=== PATIENT | male | born 1955 | race Caucasian/White ===

== ENCOUNTER 2024-09-04 12:32 | Emergency (ER) | payer MEDICARE, MEDICAID, SELFPAY ==
[2024-09-04] VITALS (7 sets, daily range): BP systolic 133–205; BP diastolic 48–95; PULSE 68–84; RESP 16–20; TEMP 36.4–37.3; O2SAT 96–99; BMI 27.8
--- NOTE | 2024-09-04 14:04 | XR_ITS ---
Examination: PA lateral chest 2 views TECHNIQUE: Upright PA lateral chest 2 views Exam date and time: September 04, 2024 1424 hours INDICATIONS: Chest pain today. FINDINGS: Significant pneumonia left base Mild to moderate left pleural fluid Moderate vascular congestion IMPRESSION: Significant pneumonia left base
--- NOTE | 2024-09-04 14:14 | PD.EDCHEST ---
ED Chest Pain RME/HPI General Chief Complaint: Chest Pain Stated Complaint: CHEST PAIN Time Seen by Provider: 09/04/24 14:03 Source: patient Arrival date/time: 09/04/24 12:32 69-year-old male patient with a past medical history of hypertension for which he is noncompliant with his medications, presents to the emergency department with a chief complaint of pressure in his central chest area. The pressure is worse with exertion or after eating and is relieved by laying on his left side.. This pressure has been ongoing for approximately 3 weeks. He denies radiation of his pain. He describes the severity of his pain as a 5/10 and is currently 4-5/10. Related Data Home Medications ?Medication ?Instructions ?Recorded ?Confirmed benazepril 40 mg tablet (Lotensin) 25 mg PO BID ##0 12/13/12 docusate sodium 250 mg capsule 250 mg PO QDAY PRN CONSTIPATION #0 06/25/14 (DOK) caps diphenhydramine HCl 25 mg capsule 25 mg PO HS #0 caps 12/25/15 Oxycodone Hcl * (ROXICODONE *) 10 mg PO Q6HR PRN PAIN #0 tabs 12/24/16 Previous Rx's ?Medication ?Instructions ?Recorded naproxen 500 mg tablet (Naprosyn) 500 mg PO BIDWM #20 tabs 05/23/17 acetaminophen 500 mg tablet 1,000 mg (2 x 500 mg) PO QID PRN 06/07/18 (Tylenol Extra Strength) pain #60 tabs Allergies Allergy/AdvReac Type Severity Reaction Status Date / Time No Known Allergies Allergy Verified 10/25/21 13:00 Course Orders Category Date Time Status CT Screening NOW Care 09/04/24 16:33 Active EKG (ED ONLY) *Do not use* NOW Care 09/04/24 14:[address] chest abdomen pelvis wwo Stat Exams 09/04/24 16:32 Ordered EKG (ED Only) Stat Exams 09/04/24 14:04 Ordered XR chest 2V Stat Exams 09/04/24 14:04 Completed B-Type Natriuretic Peptide Stat Lab 09/04/24 14:58 Completed Blood Culture (Lab) Stat Lab 09/04/24 16:50 Received CBC Stat Lab 09/04/24 14:58 Completed Comprehensive Metabolic Panel Stat Lab 09/04/24 14:58 Completed Drug Screen,Urine Stat Lab 09/04/24 14:04 Ordered LDH (Lactate Dehydrogenase) Stat Lab 09/04/24 14:58 Completed Magnesium Stat Lab 09/04/24 14:58 Completed Partial Thromboplastin Time Stat Lab 09/04/24 14:58 Completed Prothrombin Time with INR Stat Lab 09/04/24 14:58 Completed Troponin I Stat Lab 09/04/24 14:58 Completed Urinalysis Stat Lab 09/04/24 14:04 Ordered Azithromycin Inj [Zithromax Inj] 500 mg Med 09/04/24 16:31 Discontinued Sodium Chloride 0.9% 250 ml [Ns] 250 ml IV X1 Labetalol IV [Trandate IV] Med 09/04/24 17:50 Discontinued 10 mg IVP X1 ONE cefTRIAXone/D5w 1gm IV premix [Rocephin/D5w 1gm IV Med 09/04/24 16:30 Discontinued premix] 1 gm in 50 ml IV X1 Vital Signs Vital signs: Vital Signs Temperature 97.6 F 09/04/24 13:36 Pulse Rate 74 09/04/24 13:36 Blood Pressure 190/94 H 09/04/24 13:36 Pulse Oximetry (%) 96 09/04/24 13:36 Oxygen Delivery Method Room Air 09/04/24 13:36 Chest Pain Medications / Prescriptions Medication administrations:: Medication Administration History Discontinued Medications Ceftriaxone Sodium/Dextrose (Rocephin/D5w 1gm Iv Premix) 1 gm in 50 mls @ 100 mls/hr IV X1 ONE Stop: 09/04/24 16:59 Last Infusion: 09/04/24 18:12 Dose: Infused Documented By: Admin: 09/04/24 17:03 Dose: 100 mls/hr Documented By: Azithromycin 500 mg/ Sodium (Chloride) 250 mls @ 250 mls/hr IV X1 ONE Stop: 09/04/24 17:30 Labetalol HCl (Labetalol Inj 5 Mg/Ml Vial 20 Ml) 10 mg IVP X1 ONE Stop: 09/04/24 17:51 Discharge Plan Prescriptions/Referrals Prescriptions/Med Rec: No Action benazepril [Lotensin] 40 MG tablet 25 mg PO BID Qty: 0 docusate sodium [DOK] 250 MG capsule 250 mg PO QDAY PRN (Reason: CONSTIPATION) Qty: 0 diphenhydramine HCl 25 MG capsule 25 mg PO HS Qty: 0 Oxycodone Hcl * (ROXICODONE *) 5 MG tablet 10 mg PO Q6HR PRN (Reason: PAIN) Qty: 0 naproxen [Naprosyn] 500 MG tablet 500 mg PO BIDWM Qty: 20 0RF Rx Instructions: PRN PAIN acetaminophen [Tylenol Extra Strength] 500 mg tablet 1,000 mg PO QID PRN (Reason: pain) Qty: 60 0RF Referrals: Jb Salvador MD [Primary Care Provider] - In 1 week Patient/Caregiver Discharge Instructions Print Language: Kyrgyz
[2024-09-04 15:15] LABS: Basophils % (Auto) 1 % (0-2.5); Eosinophils # (Auto) 0.2 Thou/mm3 (0.0-0.5); Eosinophils % (Auto) 5 % (0-10); Hematocrit 41.8 % (41.0-53.0); Hemoglobin 15.2 g/dL (13.5-16.0); Immature Granulocytes % (Auto) 1 % (0-0); Immature Granulocytes Auto 0.03 Thou/mm3 (0.00-0.00); Lymphocytes # (Auto) 0.7 Thou/mm3 (1.0-4.8); Lymphocytes % (Auto) 16 % (10-50); Mean Corpuscular HGB Conc 36.4 g/dl (31.0-37.0); Mean Corpuscular Hemoglobin 33.4 pg (25.0-35.0); Mean Corpuscular Volume 92 fL (80-100); Monocytes # (Auto) 0.3 Thou/mm3 (0.0-0.8); Monocytes % (Auto) 8 % (0-12); Neutrophils # (Auto) 2.9 Thou/mm3 (1.8-7.7); Neutrophils % (Auto) 70 % (37-80); Nucleated Red Blood Cell % 0 /100 WBC (0); RDW Standard Deviation 51.9 fL (35.1-43.9); Red Blood Count 4.55 Miln/mm3 (4.50-5.90); White Blood Count 4.2 Thou/mm3 (3.8-10.6)
[2024-09-04 15:27] LABS: INR 1.3 (0.9-1.3); Partial Thromboplastin Time 31.2 Seconds (22.0-36.0); Prothrombin Time 13.5 Seconds (9.0-12.2)
[2024-09-04 15:31] LABS: Alanine Aminotransferase 64 U/L (10-49); Albumin, Serum 2.9 gm/dL (3.4-4.8); Albumin/Globulin Ratio 0.7 (1.2-2.2); Alkaline Phosphatase 150 U/L (46-116); Anion Gap 6 (7-16); Aspartate Amino Transferase 90 U/L (0-34); BUN/Creatinine Ratio 15 Ratio (12-20); Bilirubin,Total 2.7 mg/dL (0.3-1.2); Blood Urea Nitrogen 15 mg/dL (9-23); Calcium 8.7 mg/dL (8.3-10.6); Calcium (Corrected) 9.6 mg/dL (8.5-10.1); Carbon Dioxide 28.5 mMol/L (20.0-31.0); Chloride 105 mMol/L (98-107); Glucose 116 mg/dL (74-106); LDH (Lactate Dehydrogenase) 325 U/L (120-246); Magnesium 1.8 mg/dL (1.6-2.6); Osmolality,Calculated 279 (275-295); Potassium 4.7 mMol/L (3.4-5.1); Sodium 139 mMol/L (136-145); Total Protein 6.9 gm/dL (5.7-8.2); Troponin I < 0.020 ng/mL (0.0-0.045); eGFR > 60 See Note
[2024-09-04 15:35] LABS: B-Type Natriuretic Peptide 156 pg/mL (0-100)
[2024-09-04 15:41] LABS: Platelet Count 77 Thou/mm3 (140-440)
[2024-09-04] MEDS: cefTRIAXone/D5w 1gm IV premix 1 GM/50 ML BAG IV (17:03)
[2024-09-04 18:03] LABS: Slide Review Platelets confirmed
--- NOTE | 2024-09-04 18:13 | PC.NURSE ---
PT STATES THAT HE DOES NOT LIKE GETTING IV CONTRAST SO HE DOES NOT WANT THE TEST DONE. DAQUAN PINA INFORMED
--- NOTE | 2024-09-04 18:59 | XR_ITS ---
Examination: CT chest, without intravenous contrast. CT abdomen, without intravenous contrast. CT pelvis, without intravenous contrast. 2-D sagittal and coronal reconstructions. 3-D reconstructions. Date and time of exam:September 04, 2024 at 10:15 PM INDICATION: Chest pain shortness of breath abdominal pain today CTDI vol (mgy) 9.86 DLP (MGycm)822 Technique: Multiple CT images, 3.0 mm slice thickness, obtained chest, abdomen, pelvis, with the high-resolution 64 slice scanner.. Sagittal and coronal 2-D reconstructions are obtained. 3-D reconstructions Low dose protocols were performed. One or more of the following dose reduction techniques were used; automated exposure control, adjustment of the mA and/or KV according to patient size, use of iterative reconstruction technique. Findings: No thoracic aortic aneurysm dilatation Pulmonary artery segments are not enlarged No paratracheal or tracheobronchial or bronchopulmonary adenopathy Mild enlargement left ventricle Significant pneumonia left base Moderate vascular congestion Small left pleural effusion Retrocardiac gastric hernia Cirrhosis liver nodular in contour without definite focal defects Massive splenomegaly Moderate ascites Esophageal varices Perigastric varices Portosystemic collateral vessels medial to the spleen No pancreatic mass, no hydronephrosis Partial visualization of normal-appearing appendix No bowel obstruction 27 mm umbilical hernia which contains a small bowel loop but no incarcerated bowel or bowel obstruction Colonic diverticulosis Normal seminal vesicles No significant prostatomegaly Severe osteopenia Chronic osteoporotic compression L3 with retropulsion of this vertebral body 4 mm IMPRESSION: Significant left base pneumonia. Moderate vascular congestion Cirrhosis Massive splenomegaly Esophageal perigastric varices Moderate ascites 27 mm umbilical hernia containing a small bowel loop but no incarcerated bowel or bowel obstruction
--- NOTE | 2024-09-04 19:08 | PC.NURSE ---
PT MOVED TO ROOM 17
[2024-09-04] MEDS: AZITHROMYCIN INJ 500 MG in SODIUM CHLORIDE 0.9% 250 ML 250 ML 250 MG IV (19:23)
[2024-09-04] MEDS: LABETALOL INJ 5 MG/ML VIAL 20 ML 10 MG IVP (19:25)
[2024-09-05 00:10] VITALS: BP 153/86; PULSE 86; RESP 18
[2024-09-05 00:43] VITALS: RESP 18
== END 2024-09-05 00:43 | disposition home or self-care (01) ==
PROVIDERS: Physician Assistant; Emergency Provider Family Medicine; PCP Family Medicine
DX: I10 Essential (primary) hypertension (principal); Z91.148 Patient's other noncompliance with medication regimen for other reason
CPT/HCPCS: 36415; 71046; 71250; 74176; 80053; 80307; 81001; 83615; 83735; 83880; 84484; 85025; 85610; 85730; 87040; 93005; 96365; 96367; 99284; J0456; J0696; J3490; J7050; J1920

== ENCOUNTER 2024-09-19 16:58 | Emergency (ER) | payer MEDICARE, MEDICAID, SELFPAY ==
[2024-09-19 17:03] VITALS: BP 210/103; PULSE 77; RESP 19; TEMP 37; O2SAT 95
[2024-09-19 17:19] VITALS: BP 194/89; PULSE 75; RESP 30; TEMP 36.9; O2SAT 97
--- NOTE | 2024-09-19 17:23 | PD.EDRME ---
Rapid Medical Screening Exam RME Arrival date/time: 09/19/24 16:58 Chief Complaint: Urogenital-Male Time Seen by Provider: 09/19/24 17:23 Vital signs: Vital Signs Temperature 98.6 F 09/19/24 17:03 Pulse Rate 77 09/19/24 17:03 Respiratory Rate 19 09/19/24 17:03 Blood Pressure 210/103 H 09/19/24 17:03 Pulse Oximetry (%) 95 09/19/24 17:03 RME Narrative: 69 y/o male with Hx of methamphetamine use and cirrhosis of the liver presents to ED BIBA for abdominal pain and light-headedness when he stands x 4-5 days, as well as blood at the end of urination x 4 days. No other concerns or complaints expressed at this time. MD Attestation MD Attestation Scribe Attestation: Elaina Harris, am scribing for and in the presence of Dr. Wilkerson. Provider Notation: Although this document has been carefully reviewed, there may still be some phonetic and other typographical errors. These errors are purely grammatical due to imperfections in the software program and should not be construed in any way to compromise the substance of the patient's medical care during this visit. A problem focused assessment was initiated. Further analysis and treatment will be done by oncoming medical provider.
[2024-09-19 17:45] VITALS: PULSE 84; RESP 18; O2SAT 98
[2024-09-19 18:00] VITALS: BP 194/89; PULSE 75; RESP 28; TEMP 37; O2SAT 96
[2024-09-19 18:20] LABS: Basophils % (Auto) 1 % (0-2.5); Eosinophils # (Auto) 0.3 Thou/mm3 (0.0-0.5); Eosinophils % (Auto) 7 % (0-10); Hematocrit 40.5 % (41.0-53.0); Hemoglobin 14.9 g/dL (13.5-16.0); Immature Granulocytes % (Auto) 1 % (0-0); Immature Granulocytes Auto 0.02 Thou/mm3 (0.00-0.00); Lymphocytes # (Auto) 0.7 Thou/mm3 (1.0-4.8); Lymphocytes % (Auto) 17 % (10-50); Mean Corpuscular HGB Conc 36.8 g/dl (31.0-37.0); Mean Corpuscular Hemoglobin 32.7 pg (25.0-35.0); Mean Corpuscular Volume 89 fL (80-100); Monocytes # (Auto) 0.5 Thou/mm3 (0.0-0.8); Monocytes % (Auto) 11 % (0-12); Neutrophils # (Auto) 2.7 Thou/mm3 (1.8-7.7); Neutrophils % (Auto) 64 % (37-80); Nucleated Red Blood Cell % 0 /100 WBC (0); RDW Standard Deviation 48.5 fL (35.1-43.9); Red Blood Count 4.56 Miln/mm3 (4.50-5.90); White Blood Count 4.3 Thou/mm3 (3.8-10.6)
[2024-09-19 18:32] LABS: INR 1.3 (0.9-1.3); Partial Thromboplastin Time 30.8 Seconds (22.0-36.0)
[2024-09-19 18:33] LABS: Platelet Count 55 Thou/mm3 (140-440)
[2024-09-19 18:40] LABS: Alanine Aminotransferase 68 U/L (10-49); Albumin, Serum 2.7 gm/dL (3.4-4.8); Albumin/Globulin Ratio 0.7 (1.2-2.2); Alkaline Phosphatase 149 U/L (46-116); Anion Gap 3 (7-16); Aspartate Amino Transferase 97 U/L (0-34); BUN/Creatinine Ratio 19 Ratio (12-20); Bilirubin,Total 2.3 mg/dL (0.3-1.2); Blood Urea Nitrogen 17 mg/dL (9-23); Calcium 8.6 mg/dL (8.3-10.6); Calcium (Corrected) 9.6 mg/dL (8.5-10.1); Carbon Dioxide 26.6 mMol/L (20.0-31.0); Chloride 109 mMol/L (98-107); Creatinine (Component) 0.9 mg/dL (0.6-1.3); Globulin 3.8 gm/dL (2.3-3.5); Glucose 108 mg/dL (74-106); Lipase 56 U/L (12-53); Osmolality,Calculated 280 (275-295); Potassium 4.2 mMol/L (3.4-5.1); Sodium 139 mMol/L (136-145); Total Protein 6.5 gm/dL (5.7-8.2); eGFR > 60 See Note
[2024-09-19 19:19] LABS: Slide Review Platelets confirmed
[2024-09-19 19:55] VITALS: BP 187/98; PULSE 76; RESP 22; TEMP 36.7; O2SAT 96
--- NOTE | 2024-09-19 20:09 | PD.EDMALE ---
ED Male Genitalurinary RME/HPI General Chief complaint: Urogenital-Male Stated complaint: BLOOD IN URINE Time Seen by Provider: 09/19/24 17:23 Arrival date/time: 09/19/24 16:58 RME / HPI RME / HPI Narrative: 69 y/o male with Hx of methamphetamine use and cirrhosis of the liver, abdominal hernia, presents to ED BIBA for abdominal pain and light-headedness when he stands x 4-5 days, as well as blood at the end of urination x 4 days. Patient also complaining of worsening cough for the last few days. Associated with shortness of breath. No other concerns or complaints expressed at this time. He was seen here 15 days ago and was started on Zithromax. Which the patient completed the medication. Patient denies any fever. Denies any chest pain. Related Data Home Medications ?Medication ?Instructions ?Recorded ?Confirmed benazepril 40 mg tablet (Lotensin) 25 mg PO BID ##0 12/13/12 docusate sodium 250 mg capsule 250 mg PO QDAY PRN CONSTIPATION #0 06/25/14 (DOK) caps diphenhydramine HCl 25 mg capsule 25 mg PO HS #0 caps 12/25/15 Oxycodone Hcl * (ROXICODONE *) 10 mg PO Q6HR PRN PAIN #0 tabs 12/24/16 Previous Rx's ?Medication ?Instructions ?Recorded naproxen 500 mg tablet (Naprosyn) 500 mg PO BIDWM #20 tabs 05/23/17 acetaminophen 500 mg tablet 1,000 mg (2 x 500 mg) PO QID PRN 06/07/18 (Tylenol Extra Strength) pain #60 tabs azithromycin 250 mg tablet See Rx Instructions PO .COMPLEX #6 09/04/24 (Zithromax Z-Real) tabs furosemide 20 mg tablet (Lasix) 20 mg PO QAM #10 tabs 09/19/24 levofloxacin 750 mg tablet 750 mg PO Q24H 7 days #7 tabs 09/19/24 lisinopril 20 mg tablet 20 mg PO QDAY #30 tabs 09/19/24 potassium chloride 20 mEq 20 meq PO QDAY #10 tabs 09/19/24 tablet,extended release Allergies Allergy/AdvReac Type Severity Reaction Status Date / Time No Known Allergies Allergy Verified 10/25/21 13:00 Review of Systems Review of Systems Narrative Review of Systems: Review of system reviewed and within normal limits except mentioned in HPI ED Exam Narrative Physical exam: VITAL SIGNS: Reviewed. GENERAL APPEARANCE: Alert and interactive, follows commands, no acute distress, HEAD AND FACE: Non-traumatic. ENT: PERRL, pink conjunctivitis, eyelid no trauma, Mucous membrane moist. NECK: Supple, nontender, no nuchal rigidity. CHEST: No tenderness, no crepitus, no paradoxical movement, no retractions. LUNGS:Symmetric,+ bibasal rales, no wheezing, no ronchi, no stridor, decreased breath sounds bilaterally. HEART: Regular rate, regular rhythm, no murmur, no gallops. ABDOMEN: Soft, positive bowel sounds, nondistended, no guarding, nontender, no rebound, no masses, RECTAL: Deferred. GENITAL: Deferred. NEUROLOGICAL: Gross motor function intact sensory function intact, Appropriate for age. MUSCULOSKELETAL: low back nontender, full range of motion. EXTREMITIES: Nontender, full range of motion. SKIN: Color pink, dry, no rash, no lacerations, no abrasions, no contusions. LYMPHATICS: Deferred. Course Quality Measures none Orders Category Date Time Status XR chest 1V Stat Exams 09/19/24 20:16 Completed BNP [B-Type Natriuretic Peptide] Stat Lab 09/19/24 20:35 Completed Blood Culture (Lab) Stat Lab 09/19/24 20:39 Received CBC Stat Lab 09/19/24 18:06 Completed CMP [Comprehensive Metabolic Panel] Stat Lab 09/19/24 18:06 Completed Lactate (Lactic Acid) Stat Lab 09/19/24 20:35 Completed Lipase Stat Lab 09/19/24 18:06 Completed Partial Thromboplastin Time Stat Lab 09/19/24 18:06 Completed Procalcitonin Stat Lab 09/19/24 20:35 Completed Prothrombin Time with INR Stat Lab 09/19/24 18:06 Completed Urinalysis Stat Lab 09/19/24 20:17 Completed Furosemide [Lasix] Med 09/19/24 21:23 Discontinued 40 mg PO X1 ONE Levofloxacin [Levaquin] Med 09/19/24 21:23 Discontinued 500 mg PO X1 ONE hydrALAZINE HCL [Apresoline] Med 09/19/24 21:23 Discontinued 25 mg PO X1 ONE Vital Signs Vital signs: Vital Signs Temperature 98.6 F 09/19/24 17:03 Pulse Rate 77 09/19/24 17:03 Respiratory Rate 19 09/19/24 17:03 Blood Pressure 210/103 H 09/19/24 17:03 Pulse Oximetry (%) 95 09/19/24 17:03 Urogenital - Male MDM Narrative MDM Narrative:: 69 y/o male with Hx of methamphetamine use and cirrhosis of the liver, abdominal hernia, presents to ED BIBA for abdominal pain and light-headedness when he stands x 4-5 days, as well as blood at the end of urination x 4 days. Patient also complaining of worsening cough for the last few days. Associated with shortness of breath. No other concerns or complaints expressed at this time. He was seen here 15 days ago and was started on Zithromax. Which the patient completed the medication. Patient denies any fever. Denies any chest pain. Patient CBC showed no leukocytosis no sign of anemia. Urinalysis positive hematuria with no sign of UTI. Total bili was noted to be 2.3, AST of 97 ALT of 68 alkaline phos of 149. Patient has significant history of liver cirrhosis also. Patient is not taking any blood pressure medication. Was given hydralazine and Levaquin p.o. in the emergency room for significant pneumonia on chest x-ray. Patient was satting 95% on room air prior to discharge. Was advised to closely follow-up with PCP for his chronic medical problems including hypertension. Patient agrees with the plan Patient data External records reviewed:: None Clinical information provided by:: patient Social determinants that could affect healthcare access:: none Patient has the following chronic illnesses:: Hypertension liver cirrhosis abdominal hernia methamphetamine abuse How is presenting disease/condition affected by chronic disease/condition?: exacerbated by Evaluation data The following diagnostics were reviewed and interpreted by me:: lab results and radiology exam(s) Lab and/or radiology exams considered but not ordered:: None Interpretation Summary: See results [facility] Medications / Prescriptions Medications or Prescriptions considered but not ordered:: None Medication administrations:: Medication Administration History Discontinued Medications Furosemide (Furosemide 40 Mg Tablet) 40 mg PO X1 ONE Stop: 09/19/24 21:24 Hydralazine HCl (Hydralazine Hcl 25 Mg Tablet) 25 mg PO X1 ONE Stop: 09/19/24 21:24 Levofloxacin (Levofloxacin 250 Mg Tablet) 500 mg PO X1 ONE Stop: 09/19/24 21:24 Lasix hydralazine and Levaquin Consultations Consultation(s) initiated? (list below): No Diagnosis Urogenital Male Differential Diagnosis: urinary tract infection and other (Hematuria, pneumonia) Most likely diagnosis given after review of the tests above:: Hematuria, pneumonia Admission Indicated Admission indicated?: not indicated Admission Request Was there a request for admission?: No Disposition Plan Disposition Plan: Discharge Discharge Attestation Discharge Attestation: The patient and all family members were given an opportunity to ask questions and understood the discharge instructions. Discharge instructions specifically effects, indications for sooner follow up or return to the emergency department, and the expected course of current diagnosis. Patient condition: Stable Discharge Plan Plan Patient Disposition: HOME (Self Care) Disposition Comment: Stable Prescriptions/Referrals Prescriptions/Med Rec: New levofloxacin 750 mg tablet 750 mg PO Q24H 7 Days Qty: 7 0RF furosemide [Lasix] 20 mg tablet 20 mg PO QAM Qty: 10 0RF lisinopril 20 mg tablet 20 mg PO QDAY Qty: 30 0RF potassium chloride 20 mEq tablet extended release 20 meq PO QDAY Qty: 10 0RF No Action benazepril [Lotensin] 40 MG tablet 25 mg PO BID Qty: 0 docusate sodium [DOK] 250 MG capsule 250 mg PO QDAY PRN (Reason: CONSTIPATION) Qty: 0 diphenhydramine HCl 25 MG capsule 25 mg PO HS Qty: 0 Oxycodone Hcl * (ROXICODONE *) 5 MG tablet 10 mg PO Q6HR PRN (Reason: PAIN) Qty: 0 naproxen [Naprosyn] 500 MG tablet 500 mg PO BIDWM Qty: 20 0RF Rx Instructions: PRN PAIN acetaminophen [Tylenol Extra Strength] 500 mg tablet 1,000 mg PO QID PRN (Reason: pain) Qty: 60 0RF azithromycin [Zithromax Z-Real] 250 mg tablet See Rx Instructions .ROUTE .COMPLEX Qty: 6 0RF Rx Instructions: For 250 mg dose pack: take 500 mg today (day 1), then 250 mg for 4 days (days 2-5) Referrals: Jb Salvador MD [Primary Care Provider] - In 1 week Problem List Clinical Impression: Pneumonia, Hematuria Patient/Caregiver Discharge Instructions Discharge Activity: activity as tolerated Education Materials: ED Hematuria Additional Instructions: Thank you for the opportunity for serving you today. You are stable for discharged . You are advised to: Follow-up with your PCP in 1 to 2 days Return to ED for worsening of symptoms Increase oral fluids Take medication as prescribed As your PCP to refer you to a urologist regarding your hematuria Print Language: Hungarian Stand Alone Forms: Agata Award Info., Patient Portal Info Letter DAQUAN/ERIN Supervising Physician PA/ERIN Supervising Physician: MD Stephanie
--- NOTE | 2024-09-19 20:16 | XR_ITS ---
Examination: AP chest single view Technique one AP portable upright chest single view Exam date 9: September 19, 20242022 hrs. Comparison September 04, 2024 Indications: Coughing chest pain today. Findings: Prominent left lung pneumonia Mild enlargement cardiac contour with prominent vascular congestion Intact osseous structures Impression: Prominent left lung pneumonia with mild associated heart failure
[2024-09-19 20:46] LABS: Collection Type, Urine Clean Catch
[2024-09-19 20:48] LABS: Lactate (Lactic Acid) 1.1 mMol/L (0.4-2.0)
[2024-09-19 21:05] LABS: Bilirubin,Urine Negative (Negative); Blood,Urine 2+ (Negative); Clarity,Urine Clear (Clear/Hazy); Color,Urine Yellow (Lt Yel-Yel); Glucose, Urine Negative (Negative); Ketones,Urine Negative (Negative); Leukocyte Esterase,Urine Negative (Negative); Nitrite,Urine Negative (Negative); PH,Urine 6.5 (5.0-7.0); Protein,Urine 1+ (Neg - Trace); RBC,Urine 19 /hpf (0-3); Specific Gravity,Urine 1.018 (1.001-1.035); Squamous Epithelial Cell,Urine 1 /hpf (0-5); WBC,Urine 1 /hpf (0-5)
[2024-09-19 21:13] LABS: Procalcitonin 0.26 ng/ml (0.0-0.49)
[2024-09-19 21:26] LABS: B-Type Natriuretic Peptide 298 pg/mL (0-100)
[2024-09-19 21:59] VITALS: BP 202/109; PULSE 74; PULSE 75
[2024-09-19] MEDS: Furosemide 40 MG TABLET PO (21:59)
[2024-09-19] MEDS: LEVOFLOXACIN 250 MG TABLET 500 MG PO (21:59)
[2024-09-19] MEDS: hydrALAZINE HCL 25 MG TABLET PO (21:59)
== END 2024-09-19 22:21 | disposition home or self-care (01) ==
PROVIDERS: Emergency Medicine; Nurse Practitioner Family; Emergency Provider Emergency Medicine; PCP Family Medicine
DX: J18.9 Pneumonia, unspecified organism (principal); R31.9 Hematuria, unspecified; K74.60 Unspecified cirrhosis of liver
CPT/HCPCS: 36415; 71045; 80053; 81001; 83605; 83690; 83880; 84145; 85025; 85610; 85730; 87040; 99283; A9270

== ENCOUNTER 2025-02-17 14:16 | Inpatient (IN) | payer MEDICARE, MEDICAID, SELFPAY ==
[2025-02-17] VITALS (11 sets, daily range): BP systolic 150–184; BP diastolic 74–100; PULSE 74–101; RESP 14–96; TEMP 36.4–37.1; O2SAT 94–99; BMI 27.8; BMI 30.7
--- NOTE | 2025-02-17 14:28 | XR_ITS ---
Examination: AP chest single view TECHNIQUE: Portable AP upright chest single view Date and time: February 17, 2025 1442 hours INDICATIONS: Shortness of breath today. FINDINGS: Pneumonia left base Mild enlargement cardiac contour Moderate elevation left hemidiaphragm Mild vascular congestion IMPRESSION: Left base pneumonia with probable left pleural fluid
--- NOTE | 2025-02-17 14:33 | EDNOTE_ITS ---
<Statement entered by Candie Cote MD - 03/09/25 06:09> As co-signing physician, I was present and available for consult prn. I concur with the plan and care as documented by the midlevel provider. ED SOB =RME/HPI General Chief Complaint: Shortness of Breath/Dyspnea Stated Complaint: SOB Time Seen by Provider: 02/17/25 14:25 Source: patient Arrival date/time: 02/17/25 14:16 Mode of arrival: EMS RME / HPI RME / HPI Narrative: Mr. 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 Patient reported significant shortness of breath since the last 2 weeks, reports that he has been unable to breathe and has severe orthopnea, sits at the edge of the bed. Patient also reports that he has not followed up with his primary care physician and has not taken his diuretic medication in about the last 2 weeks to 1 month. Patient is alert and oriented x 3, no signs of hepatic encephalopathy, he has significant abdominal distention with severe ascites, umbilical hernia defect noted as well. Patient reports history of alcohol use, last drink was about a month ago. Patient had 2+ bilateral lower extremity edema, significantly short of breath requiring 6 L supplemental oxygen. Otherwise denies any nausea vomiting chills fever and dizziness. Patient was tachypneic and was started on CPAP which improved his respiration. Patient denies any nausea vomiting and chest pain, denies any blood in stool or vomiting blood. Related Data Home oxygen amount: none Home Medications ?Medication ?Instructions ?Recorded ?Confirmed benazepril 40 mg tablet (Lotensin) 25 mg PO BID ##0 docusate sodium 250 mg capsule 250 mg PO QDAY PRN CONS TIPATION #0 06/25/14 (DOK) caps diphenhydramine HCl 25 mg capsule 25 mg PO HS #0 caps 12/25/15 Oxycodone Hcl * (ROXICODONE *) 10 mg PO Q6HR PRN PAIN #0 tabs 12/24/16 Previous Rx's ?Medication ?Instructions ?Recorded naproxen 500 mg tablet (Naprosyn) 500 mg PO BIDWM #20 tabs 05/23/17 acetaminophen 500 mg tablet 1,000 mg (2 x 500 mg) PO Q ID PRN 06/07/18 (Tylenol Extra Strength) pain #60 tabs azithromycin 250 mg tablet See Rx Instructions PO .COM PLEX #6 09/04/24 (Zithromax Z-Real) tabs furosemide 20 mg tablet (Lasix) 20 mg PO QAM #10 tabs 09/19/24 lisinopril 20 mg tablet 20 mg PO QDAY #30 tabs 09/19 potassium chloride 20 mEq 20 meq PO QDAY #10 tabs 09/02 01/26 tablet,extended release Allergies Allergy/AdvReac Type Severity Reaction Status Date / Time No Known Allergies Allergy Verified 10/25/21 13:00 Review of Systems Review of Systems Systems Reviewed: All systems reviewed, normal except as documented Past Medical History Past Medical History Comments PMH COMMENT: PMH: As above Allergies: No known allergies Social history: -Smoking: Current active smoker -Alcohol Use: History of heavy alcohol use -Illicit Drug Use: History of methamphetamine Family History: No pertinent family history ED Exam Narrative Physical exam: Physical Exam General: Awake and in moderate to severe acute distress. Conversational, severely short of breath and tachypneic HEENT: Normocephalic, atraumatic, mucous membranes moist. Heart: Sinus tachycardia, no murmurs. Lungs: Bilateral crackles, accessory muscle use Abdomen: Tense, ascitic pattern, significant distention noted. Neurologic: Alert and oriented x3, no gross neurological deficit, and patient able to move all 4 extremities. Extremities: 2+ bilateral lower extremity edema Skin: No rash or ecchymoses. Course Course Course Narrative: Patient seen in ambulance bay on 6 L oxygen saturation greater than 92, complains of severe shortness of breath Patient in room 6, sitting at the edge of the bed endorsing severe orthopnea. Decision made to start patient on CPAP to give positive pressure to improve work of breathing, patient alert and oriented x 4 Workup ordered: CBC: WBC 4.2, RBC 4.18, hemoglobin 14.2, hematocrit 40.6, MCV 97, MCH 34.0, MCHC 35.0, platelet count 89 Coags: INR 1.3, PT 14.1 VBG: pH 7.38, pCO2 44 Chemistry: Sodium 141, potassium 4.4, chloride 108, bicarb 26.0, anion gap 7, BUN 12, creatinine 1.0, GFR greater than 60, glucose 153, osmolality 283, lactate 3.0, corrected calcium 9.6, phosphorus 3.0, magnesium 1.9, total bilirubin 2.6, AST 52, ALT 32, alk phos 176 ammonia 110, BNP 109, total protein 6.6, albumin 2.6, globulin 4.0, Pro-Elia 0.23 Urine analysis: pH 6.0, specific gravity 1.011, negative leukocyte esterase nitrite no bacteria noted Urine tox screen positive for methamphetamine Chest x-ray ordered shows left base pneumonia with probable left pleural fluid Patient was given 40 mg IV push Lasix, started on ceftriaxone 2 g and doxycycline 100 mg for pneumonia. Due to increased work of breathing, patient had significant ascites, decision made to do therapeutic paracentesis Consent obtained from patient Paracentesis done at bedside, 9 L fluid drained Patient given 70 g of albumin Case discussed with [employer] Dr. Franco for admission, hospitalist team accepted patient for admission Quality Measures none Orders Category Date Time Status Bedside Blood Glucose NOW Care 02/17/25 14:30 Completed Bedside COVID-19 Antigen Test NOW Care 02/17/25 14:55 Active Bedside Influenza A&B Antigen Test NOW Care 02/17/25 14:55 Completed COVID-19 Screening Questionnaire NOW Care 02/17/25 18:49 Active Agricultural Technical Officer Q4H START 00 Care 02/17/25 14:30 Active Decision to Admit X1 Care 02/17/25 18:49 Completed Insert IV NOW Care 02/17/25 14:30 Active NPO NOW Care 02/17/25 19:52 Active Strict Intake and Output Routine Care 02/17/25 14:30 Ordered Consult to Gastroenterology Routine Cons 02/17/25 20:08 Ordered Diet NPO (NOW) Diet 02/17/25 19:52 Completed CA echo doppler complete Stat Exams 02/17/25 20:[address] chest abdomen pelvis wo Stat Exams 02/18/25 20:16 Completed CXRP [XR chest 1V portable] Stat Exams 02/17/25 14:28 Completed Albumin, Peritoneal Fluid Routine Lab 02/17/25 18:21 Completed Alcohol, Urine Routine Lab 02/17/25 16:18 Completed Ammonia Stat Lab 02/17/25 15:04 Completed Amylase,Peritoneal Fluid Routine Lab 02/17/25 18:21 Completed BNP [B-Type Natriuretic Peptide] Stat Lab 02/17/25 15:04 Completed Body Fld Cult w Hay[place] & Gram St Routine Lab 02/17/25 18:21 Received Body Fld Cult w Hay[place] & Gram St Routine Lab 02/17/25 20:18 Stop Req CBC Stat Lab 02/17/25 15:04 Completed CMP [Comprehensive Metabolic Panel] Stat Lab 02/17/25 15:04 Completed Drug Screen,Urine Routine Lab 02/17/25 16:18 Completed Glucose,Peritoneal Fluid Routine Lab 02/17/25 18:21 Completed INR [Prothrombin Time with INR] Stat Lab 02/17/25 15:04 Completed LDH (Lactate Dehydrogenase) Routine Lab 02/17/25 20:47 Completed LDH,Peritoneal Fluid Routine Lab 02/17/25 18:21 Completed Lactate (Lactic Acid) Stat Lab 02/17/25 15:04 Completed Lactic Acid, 3 HR Stat Lab 02/17/25 19:06 Completed Mag [Magnesium] Stat Lab 02/17/25 15:04 Completed PTT [Partial Thromboplastin Time] Stat Lab 02/17/25 15:04 Completed Peritoneal Cell Cnt/Diff Routine Lab 02/17/25 18:21 Completed Phosphorous Stat Lab 02/17/25 15:04 Completed Procalcitonin Stat Lab 02/17/25 15:04 Completed Protein Total,Peritoneal Fluid Routine Lab 02/17/25 18:21 Completed Type and Screen Stat Lab 02/17/25 20:47 Results Urinalysis, C/S if Indicated Stat Lab 02/17/25 16:18 Completed VBG [Venous Blood Gas] Stat Lab 02/17/25 15:04 Completed Albumin Human 25% Ivpb [Albuminar-25 Ivpb] Med 02/18/25 09:00 Active 12.5 gm in 50 ml IV QDAY Doxycycline Inj [Vibramycin Inj] 100 mg Med 02/17/25 15:51 Discontinued Sodium Chloride 0.9% (Pop) [NS 0.9% mini bag] 100 ml IV X1 Furosemide Inj [Lasix Inj] Med 02/17/25 14:55 Discontinued 40 mg IVP X1 ONE Lactulose Syrup [Enulose Syrup] Med 02/17/25 22:00 Active 20 gm PO TID Lidocaine 1% Pf 30 ml [Xylocaine 1% Pf 30 ml] Med 02/17/25 16:30 Discontinued 10 ml INFL X1 ONE Ondansetron Inj [Zofran Inj] Med 02/17/25 20:07 Active 4 mg IVP Q6HR PRN Ondansetron Inj [Zofran Inj] Med 02/17/25 20:07 Discontinued 4 mg IVP X1 ONE Pantoprazole Inj [Protonix Inj] Med 02/17/25 21:00 Discontinued 40 mg IVP BID Pantoprazole/Ns 80Mg IV Premix [Protonix/NS 80mg IV Med 02/17/25 20:11 Discontinued Premix] 80 mg in 100 ml IV Q10H Pantoprazole/Ns 80Mg IV Premix [Protonix/NS 80mg IV Med 02/17/25 20:11 Discontinued Premix] 80 mg in 100 ml IV X1 Sodium Chloride 0.9% [Ns] 100 ml Med 02/17/25 20:15 Active Octreotide Acet Inj [SandoSTATIN Inj] 1,000 mcg IV 50 mcg/hr Sodium Chloride 0.9% [Ns] 100 ml Med 02/18/25 16:15 Active Octreotide Acet Inj [SandoSTATIN Inj] 1,000 mcg IV 50 mcg/hr carVEDILOL [Coreg] Med 02/18/25 08:00 Hold 6.25 mg PO BIDWM cefTRIAXone [Rocephin] 2 gm Med 02/17/25 15:52 Discontinued SODIUM CHLORIDE 0.9% (Popper) [Ns 0.9% (P)] 50 ml IV X1 cefTRIAXone/D5w 1gm IV premix [Rocephin/D5w 1gm IV Med 02/18/25 09:00 Active premix] 1 gm in 50 ml IV QDAY BiPAP / CPAP NOW RT 02/17/25 14:54 Active Oxygen Delivery PRN RT 02/17/25 14:30 Active Vital Signs Vital signs: Vital Signs Temperature 98.7 F 02/17/25 14:20 Pulse Rate 101 H 02/17/25 14:20 Respiratory Rate 20 02/17/25 14:20 Blood Pressure 179/100 H 02/17/25 14:20 Pulse Oximetry (%) 95 02/17/25 14:20 Oxygen Delivery Method Nasal Cannula 02/17/25 14:20 Oxygen Flow Rate 6 02/17/25 14:20 PROCEDURES: Paracentesis Time Out Performed: Yes Indication: Ascites (Therapeutic and diagnostic) Procedure: therapeutic paracentesis Location: RLQ Local Anesthetic: lidocaine 1% Amount of anesthesia used (mL): 7 Bedside Ultrasound Used: no Preparation: sterile prep and drape Amount of fluid obtained (mL): 9,000 Fluid: cloudy and sent to lab for analysis Post Procedure Exam: awake, alert, normal BP, normal HR and normal SpO2 Patient Tolerated Procedure: well and no complications Complications: none Shortness of Breath / Dyspnea MDM Narrative MDM Narrative:: #Acute hypoxic respiratory failure #Left base pneumonia #Suspected left side pleural effusion #Ascites #status post large volume Paracentesis, drained 9 L Patient seen in ambulance bay on 6 L oxygen saturation greater than 92, complains of severe shortness of breath Patient in room 6, sitting at the edge of the bed endorsing severe orthopnea. Decision made to start patient on CPAP to give positive pressure to improve work of breathing, patient alert and oriented x 4 Workup ordered: CBC: WBC 4.2, RBC 4.18, hemoglobin 14.2, hematocrit 40.6, MCV 97, MCH 34.0, MCHC 35.0, platelet count 89 Coags: INR 1.3, PT 14.1 VBG: pH 7.38, pCO2 44 Chemistry: Sodium 141, potassium 4.4, chloride 108, bicarb 26.0, anion gap 7, BU N 12, creatinine 1.0, GFR greater than 60, glucose 153, osmolality 283, lactate 3.0, corrected calcium 9.6, phosphorus 3.0, magnesium 1.9, total bilirubin 2.6, AST 52, ALT 32, alk phos 176 ammonia 110, BNP 109, total protein 6.6, albumin 2.6, globulin 4.0, Pro-Elia 0.23 Urine analysis: pH 6.0, specific gravity 1.011, negative leukocyte esterase nitrite no bacteria noted Urine tox screen positive for methamphetamine Chest x-ray ordered shows left base pneumonia with probable left pleural fluid Patient was given 40 mg IV push Lasix, started on ceftriaxone 2 g and doxycycline 100 mg for pneumonia. Due to increased work of breathing, patient had significant ascites, decision made to do therapeutic paracentesis Consent obtained from patient Paracentesis done at bedside, 9 L fluid drained Patient given 70 g of albumin Case discussed with [employer] Dr. Franco for admission, hospitalist team accepted patient for admission Case discussed with Attending Physician Dr. Rocael Elizondo MD Internal Medicine PGY-2 Disclaimer: This note was dictated by speech recognition. Minor errors in nuclear reactor technician may be present due to voice recognition software. Patient data External records reviewed:: [facility] previous records and EMS form Clinical information provided by:: patient and EMS Social determinants that could affect healthcare access:: alcohol use Patient has the following chronic illnesses:: As Above How is presenting disease/condition affected by chronic disease/condition?: exacerbated by Evaluation data The following diagnostics were reviewed and interpreted by me:: lab results, radiology exam(s) and EKG tracing(s) Lab and/or radiology exams considered but not ordered:: None Interpretation Summary: CBC: WBC 4.2, RBC 4.18, hemoglobin 14.2, hematocrit 40.6, MCV 97, MCH 34.0, MCHC 35.0, platelet count 89 Coags: INR 1.3, PT 14.1 VBG: pH 7.38, pCO2 44 Chemistry: Sodium 141, potassium 4.4, chloride 108, bicarb 26.0, anion gap 7, BUN 12, creatinine 1.0, GFR greater than 60, glucose 153, osmolality 283, lactate 3.0, corrected calcium 9.6, phosphorus 3.0, magnesium 1.9, total bilirubin 2.6, AST 52, ALT 32, alk phos 176 ammonia 110, BNP 109, total protein 6.6, albumin 2.6, globulin 4.0, Pro-Elia 0.23 Urine analysis: pH 6.0, specific gravity 1.011, negative leukocyte esterase nitrite no bacteria noted Urine tox screen positive for methamphetamine Chest x-ray ordered shows left base pneumonia with probable left pleural fluid Medications / Prescriptions Medications or Prescriptions considered but not ordered:: None Medication administrations:: Medication Administration History Acetaminophen (Acetaminophen 325 Mg Tablet) 650 mg PO Q6H PRN PRN Reason: Fever >100.4 Stop: 03/19/25 20:23 Carvedilol (Carvedilol 3.125 Mg Tablet) 6.25 mg PO BIDWM STEVE On Hold: 02/18/25 08:00 Stop: 03/20/25 07:59 Ceftriaxone Sodium/Dextrose (Rocephin/D5w 1gm Iv Premix) 1 gm in 50 mls @ 100 mls/hr IV QDAY STEVE Stop: 02/25/25 08:59 Albumin Human (Albuminar-25 Ivpb) 12.5 gm in 50 mls @ 100 mls/hr IV QDAY [facility] Stop: 03/20/25 08:59 Octreotide Acetate 1,000 mcg/ (Sodium Chloride) 102 mls @ 5.1 mls/hr IV .Q20H [facility]; Protocol Stop: 02/22/25 20:11 Octreotide Acetate 1,000 mcg/ (Sodium Chloride) 102 mls @ 5.1 mls/hr IV .Q20H ONE; Protocol Stop: 02/18/25 16:14 Last Admin: 02/17/25 21:15 Dose: 50 mcg/hr, 5.1 mls/hr Documented By: MANAS Promethazine HCl 6.25 mg/ (Sodium Chloride) 50.25 mls @ 100.5 mls/hr IV Q4HR [facility] Stop: 03/20/25 09:59 Azithromycin 500 mg/ Sodium (Chloride) 250 mls @ 250 mls/hr IV QDAY [facility] Stop: 02/21/25 09:38 Lactulose (Lactulose Syrup 20 Gm/30 Ml Udc) 20 gm PO TID STEVE; Protocol Stop: 03/19/25 21:59 Last Admin: 02/18/25 00:32 Dose: Not Given Documented By: JOSE Non-Admin Reason: Nausea Ondansetron HCl (Ondansetron Inj 2 Mg/Ml Inj 2 Ml) 4 mg IVP Q6HR PRN; Protocol PRN Reason: NAUSEA OR VOMITING Stop: 03/19/25 20:06 Last Admin: 02/18/25 05:29 Dose: 4 mg Documented By: Admin: 02/17/25 20:35 Dose: 4 mg Documented By: MANAS Comments: 1 Pantoprazole Sodium (Pantoprazole Inj 40 Mg Vial) 40 mg IVP BID [facility] Stop: 03/20/25 08:59 Discontinued Medications Benzocaine (Benzocaine 20% (Hurricaine) Rule 1 Dose) Confirm Administered Dose 1 dose TOP .STK-MED ONE Stop: 02/18/25 08:38 Benzocaine (Benzocaine 20% (Hurricaine) Rule 1 Dose) 0 dose TOP X1 ONE Stop: 02/18/25 08:39 Diphenhydramine HCl (Diphenhydramine Inj 50 Mg/Ml Vial) Confirm Administered Dose 50 mg .ROUTE .STK-MED ONE Stop: 02/18/25 08:39 Diphenhydramine HCl (Diphenhydramine Inj 50 Mg/Ml Vial) 25 mg IVP [id number] PRN PRN Reason: MODERATE SEDATION Stop: 02/18/25 10:39 Epinephrine HCl (Epinephrine Inj 0.1 Mg/Ml Syringe 10ml) Confirm Administered Dose 1 mg .ROUTE .STK-MED ONE Stop: 02/18/25 08:39 Fentanyl Citrate (Fentanyl Cit Inj 50 Mcg/Ml Amp 2ml) Confirm Administered Dose 100 mcg .ROUTE .STK-MED ONE Stop: 02/18/25 08:38 Fentanyl Citrate (Fentanyl Cit Inj 50 Mcg/Ml Amp 2ml) 50 mcg IVP Q2M PRN PRN Reason: MODERATE SEDATION Stop: 02/18/25 10:38 Furosemide (Furosemide Inj 10 Mg/Ml 4ml Vial) 40 mg IVP X1 ONE Stop: 02/17/25 14:56 Last Admin: 02/17/25 15:06 Dose: 40 mg Documented By: ELVIN Hydromorphone HCl (Hydromorphone Inj 2 Mg/Ml Vial) 0.5 mg IVP X1 ONE Stop: 02/17/25 20:32 Last Admin: 02/17/25 21:12 Dose: 0.5 mg Documented By: MANAS Ceftriaxone Sodium 2 gm/ (Sodium Chloride) 50 mls @ 100 mls/hr IV X1 ONE Stop: 02/17/25 16:21 Last Infusion: 02/17/25 17:19 Dose: Infused Documented By: Admin: 02/17/25 16:24 Dose: 100 mls/hr Documented By: ELVIN Doxycycline Hyclate 100 mg/ (Sodium Chloride) 100 mls @ 100 mls/hr IV X1 ONE Stop: 02/17/25 16:50 Last Infusion: 02/17/25 18:20 Dose: Infused Documented By: Admin: 02/17/25 17:22 Dose: 100 mls/hr Documented By: ELVIN Pantoprazole Sodium (Protonix/Ns 80mg Iv Premix) 80 mg in 100 mls @ 400 mls/hr IV X1 ONE Stop: 02/17/25 20:25 Last Admin: 02/17/25 20:34 Dose: 400 mls/hr Documented By: MANAS Pantoprazole Sodium (Protonix/Ns 80mg Iv Premix) 80 mg in 100 mls @ 10 mls/hr IV Q10H STEVE Stop: 02/20/25 18:10 Last Admin: 02/18/25 08:04 Dose: Not Given Documented By: DL Non-Admin Reason: Discontinued Albumin Human (Albuminar-25 Ivpb) 25 gm in 100 mls @ 100 mls/hr IV Q1H STEVE Stop: 02/17/25 22:29 Last Admin: 02/18/25 01:28 Dose: 100 mls/hr Documented By: Infusion: 02/18/25 01:28 Dose: Infused Documented By: Admin: 02/18/25 00:31 Dose: 100 mls/hr Documented By: SS Albumin Human (Albuminar-25 Ivpb) 20 gm in 80 mls @ 100 mls/hr IV X1 ONE Stop: 02/17/25 23:17 Last Admin: 02/18/25 02:33 Dose: 100 mls/hr Documented By: JOSE Sodium Chloride (Ns) 1,000 mls @ 100 mls/hr IV .Q10H STEVE Stop: 03/19/25 22:14 Last Admin: 02/18/25 05:29 Dose: 100 mls/hr Documented By: JOSE Pantoprazole Sodium (Protonix/Ns 80mg Iv Premix) 80 mg in 100 mls @ 400 mls/hr IV X1 ONE Stop: 02/18/25 01:14 Last Admin: 02/18/25 08:03 Dose: Not Given Documented By: VINCE Non-Admin Reason: Discontinued Pantoprazole Sodium (Protonix/Ns 80mg Iv Premix) 80 mg in 100 mls @ 10 mls/hr IV X1 ONE Stop: 02/18/25 11:00 Last Admin: 02/18/25 08:03 Dose: Not Given Documented By: DL Non-Admin Reason: Discontinued Lidocaine HCl (Lidocaine Inj Pf 1% 30 Ml Vial) 10 ml INFL X1 ONE Stop: 02/17/25 16:31 Last Admin: 02/17/25 16:45 Dose: 10 ml Documented By: CORIN Comments: MED GIVEN BY DR. ELIZONDO Midazolam HCl (Midazolam Inj 1 Mg/Ml Vial 2 Ml) Confirm Administered Dose 4 mg .ROUTE .STK-MED ONE Stop: 02/18/25 08:38 Midazolam HCl (Midazolam Inj 1 Mg/Ml Vial 2 Ml) 2 mg IVP Q2M PRN PRN Reason: Moderate Sedation Stop: 02/18/25 10:39 Morphine Sulfate (Morphine Sulf Inj 4 Mg/Ml Vial) 1 mg IVP X1 ONE Stop: 02/18/25 03:55 Last Admin: 02/18/25 04:12 Dose: 1 mg Documented By: SS Ondansetron HCl (Ondansetron Inj 2 Mg/Ml Inj 2 Ml) 4 mg IVP X1 ONE; Protocol Stop: 02/17/25 20:08 Last Admin: 02/18/25 00:33 Dose: Not Given Documented By: SS Non-Admin Reason: PRN dose given Pantoprazole Sodium (Pantoprazole Inj 40 Mg Vial) 40 mg IVP BID [facility] Stop: 03/19/25 20:59 Pantoprazole Sodium (Pantoprazole Inj 40 Mg Vial) 40 mg IVP BID [facility] Stop: 03/20/25 00:59 Last Admin: 02/18/25 08:03 Dose: Not Given Documented By: VINCE Non-Admin Reason: Discontinued Promethazine HCl (Promethazine Inj 25 Mg/Ml Vial) 6.25 mg IV Q4HR STEVE; Protocol Stop: 03/20/25 09:59 As Above Consultations Consultation(s) initiated? (list below): No Diagnosis Shortness of Breath Differential Diagnosis: congestive heart failure and other (Acute decompensated liver cirrhosis) Most likely diagnosis given after review of the tests above:: Acute decompensated liver cirrhosis Admission Indicated Admission indicated?: indicated Admission Request Was there a request for admission?: Yes Admission Attestation Admission request attestation: Discussed case with Dr. Franco from Hospitalist service regarding admission. Discussed patients ED course, exam findings, labs, and radiology results. The Hospitalist agrees to accept the patient for admission. Disposition Plan Disposition Plan: Admit Discharge Plan Plan Patient Disposition: Admit Acute Care w/in Hospital Problem List Clinical Impression: Decompensation of cirrhosis of liver, Ascites due to alcoholic cirrhosis
[2025-02-17] MEDS: FUROSEMIDE INJ 10 MG/ML 4ML VIAL 40 MG IVP (15:06)
[2025-02-17 15:17] LABS: Lactate (Lactic Acid) 3.0 mMol/L (0.4-2.0)
[2025-02-17 15:18] LABS: Base Excess, Venous 0 (-3-3); O2 Saturation, Venous 74 % (96-97); PCO2, Venous 44 mmHg (36-56); PO2, Venous 40 mmHg (15-58); pH, Venous 7.38 (7.33-7.66)
[2025-02-17 15:31] LABS: Basophils # (Auto) 0.0 Thou/mm3 (0.0-0.2); Basophils % (Auto) 1 % (0-2.5); Eosinophils # (Auto) 0.2 Thou/mm3 (0.0-0.5); Eosinophils % (Auto) 5 % (0-10); Hematocrit 40.6 % (41.0-53.0); Hemoglobin 14.2 g/dL (13.5-16.0); Immature Granulocytes Auto 0.01 Thou/mm3 (0.00-0.00); Lymphocytes # (Auto) 0.7 Thou/mm3 (1.0-4.8); Lymphocytes % (Auto) 17 % (10-50); Mean Corpuscular HGB Conc 35.0 g/dl (31.0-37.0); Mean Corpuscular Hemoglobin 34.0 pg (25.0-35.0); Mean Corpuscular Volume 97 fL (80-100); Monocytes # (Auto) 0.5 Thou/mm3 (0.0-0.8); Monocytes % (Auto) 11 % (0-12); Neutrophils # (Auto) 2.8 Thou/mm3 (1.8-7.7); Neutrophils % (Auto) 66 % (37-80); Nucleated Red Blood Cell # 0.00 Thou/mm3 (0.00-0.00); Nucleated Red Blood Cell % 0 /100 WBC (0); Platelet Count 89 Thou/mm3 (140-440); RDW Standard Deviation 56.2 fL (35.1-43.9); Red Blood Count 4.18 Miln/mm3 (4.50-5.90); White Blood Count 4.2 Thou/mm3 (3.8-10.6)
[2025-02-17 15:39] LABS: INR 1.3 (0.9-1.3); Partial Thromboplastin Time 30.7 Seconds (22.0-36.0); Prothrombin Time 14.1 Seconds (9.0-12.2)
[2025-02-17 15:40] LABS: B-Type Natriuretic Peptide 109 pg/mL (0-100)
[2025-02-17 15:44] LABS: Ammonia 110 uMol/L (11-32)
[2025-02-17 15:48] LABS: Alanine Aminotransferase 32 U/L (10-49); Albumin, Serum 2.6 gm/dL (3.4-4.8); Albumin/Globulin Ratio 0.7 (1.2-2.2); Alkaline Phosphatase 176 U/L (46-116); Anion Gap 7 (7-16); Aspartate Amino Transferase 52 U/L (0-34); BUN/Creatinine Ratio 12 Ratio (12-20); Bilirubin,Total 2.6 mg/dL (0.3-1.2); Blood Urea Nitrogen 12 mg/dL (9-23); Calcium 8.5 mg/dL (8.3-10.6); Calcium (Corrected) 9.6 mg/dL (8.5-10.1); Carbon Dioxide 26.0 mMol/L (20.0-31.0); Chloride 108 mMol/L (98-107); Creatinine (Component) 1.0 mg/dL (0.6-1.3); Estimated Creatinine Clearance 79.2 mL/min (>60); Globulin 4.0 gm/dL (2.3-3.5); Glucose 153 mg/dL (74-106); Magnesium 1.9 mg/dL (1.6-2.6); Osmolality,Calculated 283 (275-295); Phosphorous 3.0 mg/dL (2.4-5.1); Potassium 4.4 mMol/L (3.4-5.1); Procalcitonin 0.23 ng/ml (0.0-0.49); Sodium 141 mMol/L (136-145); Total Protein 6.6 gm/dL (5.7-8.2); eGFR > 60 See Note
[2025-02-17] MEDS: cefTRIAXone 2 GM in SODIUM CHLORIDE 0.9% (Popper) 50 ML IV (16:24)
[2025-02-17 16:25] LABS: Collection Type, Urine Clean Catch
[2025-02-17 16:29] LABS: Bilirubin,Urine Negative (Negative); Blood,Urine Negative (Negative); Clarity,Urine Clear (Clear/Hazy); Color,Urine Yellow (Lt Yel-Yel); Culture Indicated,Urine Not Indicated; Glucose, Urine Negative (Negative); Ketones,Urine Negative (Negative); Leukocyte Esterase,Urine Negative (Negative); Nitrite,Urine Negative (Negative); PH,Urine 6.0 (5.0-7.0); Protein,Urine Negative (Neg - Trace); RBC,Urine 1 /hpf (0-3); Specific Gravity,Urine 1.011 (1.001-1.035); Squamous Epithelial Cell,Urine 1 /hpf (0-5); Urobilinogen,Urine Negative mg/dL (0.0-1.0); WBC,Urine 1 /hpf (0-5)
[2025-02-17] MEDS: LIDOCAINE INJ PF 1% 30 ML VIAL 10 ML INFL (16:45)
--- NOTE | 2025-02-17 17:02 | PC.NURSE ---
md and international broadcast music librarian at bedside to do paracentesis. pt signed consent for procedure.
[2025-02-17] MEDS: DOXYCYCLINE INJ 100 MG in SODIUM CHLORIDE 0.9% (POP) 100 ML IV (17:22)
[2025-02-17 18:17] LABS: Reflex Lactate? Y
[2025-02-17 19:03] LABS: Peritoneal Fluid WBC 151 /cmm
[2025-02-17 19:10] LABS: Lactic Acid, 3 HR 2.3 mMol/L (0.4-2.0)
--- NOTE | 2025-02-17 19:10 | PC.NURSE ---
doctor Rojas removed 9000ml of paracentesis fluid and some sent to lab.
[2025-02-17 19:43] LABS: Albumin, Peritoneal Fluid < 1.0 gm/dL; Amylase,Peritoneal Fluid < 20 IU/L; Glucose,Peritoneal Fluid 136 mg/dL; LDH,Peritoneal Fluid 48 IU/L; Protein Total,Peritoneal Fluid < 2 g/dL
[2025-02-17 20:04] LABS: Peritoneal Fluid Appearance Clear; Peritoneal Fluid Color Straw; RBC,Peritoneal Fluid 198 /cmm
[2025-02-17 20:05] LABS: Peritoneal Fluid Mononuclear 91 %; Peritoneal Fluid Polynuclear 9 %
[2025-02-17] MEDS: PANTOPRAZOLE/NS 80MG IV PREMIX 80 MG/100 ML BAG 400 MG IV (20:34)
[2025-02-17] MEDS: ONDANSETRON INJ 2 MG/ML INJ 2 ML 4 MG IVP (20:35)
[2025-02-17 20:41] LABS: Alcohol, Urine Negative (Negative); Amphetamine/Methamp Scrn,U Positive (Negative); Barbiturate Screen,Urine Negative (Negative); Benzodiazepines Screen,Urine Negative (Negative); Benzoylecgonine Screen, Ur Negative (Negative); Fentanyl Screen,Urine Negative (Negative); Opiate Screen,Urine Negative (Negative); THC Screen,Urine Negative (Negative)
--- NOTE | 2025-02-17 20:45 | PD.IMCONS ---
HPI Data of Consult Requesting Physician: Crystal Franco MD Primary Care Provider: Jb Salvador MD Consult Narrative Reason for consult: Hematemesis History of present illness: 69 years old male evaluated the request of the internal medicine team and the ER team for evaluation for hematemesis for which he subsequently got admitted Patient does have chronic liver disease secondary to alcohol Patient was already started on intravenous octreotide as well as IV Protonix cc:: cc: Crystal Franco MD Review of Systems Review of Systems Systems Reviewed: All systems reviewed, normal except as documented Past Medical History Surgical History OTHER SURGICAL HX: As in the history of present illness Meds Home Medications and Allergies Home Medications ?Medication ?Instructions ?Recorded ?Confirmed ?Type benazepril 40 mg tablet (Lotensin) 25 mg PO BID ##0 12/13/12 History docusate sodium 250 mg capsule 250 mg PO QDAY PRN CONSTIPATION #0 06/25/14 History (DOK) caps diphenhydramine HCl 25 mg capsule 25 mg PO HS #0 caps 12/25/15 History Oxycodone Hcl * (ROXICODONE *) 10 mg PO Q6HR PRN PAIN #0 tabs 12/24/16 History Allergies Allergy/AdvReac Type Severity Reaction Status Date / Time No Known Allergies Allergy Verified 10/25/21 13:00 Exam Vital Signs Temp Pulse Resp BP Pulse Ox O2 Del Method O2 Flow Rate 97.7 F 86 19 183/87 H 96 Room Air 6 02/17/25 19:47 02/17/25 19:47 02/17/25 19:47 02/17/25 19:47 02/17/25 19:47 02/17/25 19:47 02/17/25 14:20 Constitutional Comments: Alert oriented Routine Respiratory Exam Comments: Normal to auscultation Routine Abdominal Exam Comments: Soft nontender Results Labs 02/18/25 13:55 02/18/25 05:19 Labs: Short CBC 02/17/25 Range/Units 15:04 WBC 4.2 (3.8-10.6) Thou/mm3 Hgb 14.2 (13.5-16.0) g/dL Hct 40.6 L (41.0-53.0) % Plt Count 89 L (140-440) Thou/mm3 BMP 02/17/25 15:04 Sodium 141 Potassium 4.4 Chloride 108 H Carbon Dioxide 26.0 BUN 12 Creatinine 1.0 Glucose 153 H Calcium 8.5 Liver Function 02/17/25 Range/Units 15:04 Total Bilirubin 2.6 H (0.3-1.2) mg/dL AST 52 H (0-34) U/L ALT 32 (10-49) U/L Alkaline Phosphatase 176 H (46-116) U/L Albumin 2.6 L (3.4-4.8) gm/dL Urine 02/17/25 Range/Units 16:18 Urine Color Yellow (Lt Yel-Yel) Urine Clarity Clear (Clear/Hazy) Urine pH 6.0 (5.0-7.0) Ur Specific [place] 1.011 (1.001-1.035) Urine Protein Negative (Neg - Trace) Urine Glucose (UA) Negative (Negative) ABG Interpretation ABG results: 02/17/25 15:04 VBG pH 7.38 VBG pCO2 44 VBG pO2 40 VBG Base Excess 0 Assessment and Plan Additional Assessment & Plan Additional Plan: # Hematemesis in the setting of chronic liver disease secondary to alcohol plan intravenous octreotide 50 mcg IV push and 50 mcg/h infusion serial CBC IV Protonix N.p.o . consent obtained for fiberoptic esophagogastroduodenoscopy with possible therapeutic intervention under intravenous moderate sedation Thank you for the opportunity to participate in the care of this patient
--- NOTE | 2025-02-17 21:06 | ESOP_ITS ---
<Statement entered by Candie Cote MD - 03/09/25 06:55> I, Candie Cote MD, have reviewed the history, exam, and assessment of the patient. I have evaluated the patient independently and agree with the plan of care documented by [ ]. All diagnostic studies were reviewed and discussed. I confirm the diagnosis as documented by the Resident. I was present during the Medical Decision Making for this patient. The patient's plan of care was created between myself and the Resident and consistent with our discussion of the patient's case. PROCEDURES: Procedure Date / Time 02/18/25 0806 Paracentesis Indication: Ascites Informed consent obtained: from patient Time out done, and the following verified: correct patient, side and site, procedure, patient position and implants and/or equipment Procedure: therapeutic paracentesis Location: RLQ Local anesthetic used: lidocaine 1% Amount of anesthesia used (mL): 10 Bedside ultrasound used: no Preparation: sterile prep and drape Amount of fluid obtained (mL): 9,000 Fluid: cloudy EBL(ml): 5 Post procedure exam: awake, alert, normal BP, normal HR and normal SpO2 Patient tolerated procedure: well Complications: none Procedure comment: Procedure performed under supervision of attending ED physician Dr. Rocael Rojas MD Internal Medicine PGY-2 Disclaimer: This note was dictated by speech recognition. Minor errors in cray fishing hand may be present due to voice recognition software.
[2025-02-17] MEDS: HYDROmorphone INJ 2 MG/ML VIAL 0.5 MG IVP (21:12)
[2025-02-17] MEDS: OCTREOTIDE ACET INJ 1,000 MCG in SODIUM CHLORIDE 0.9% 100 ML 5.1 MCG IV (21:15)
[2025-02-17 21:34] LABS: LDH (Lactate Dehydrogenase) 239 U/L (120-246)
[2025-02-17 22:27] LABS: Hematocrit 33.0 % (41.0-53.0); Hemoglobin 11.5 g/dL (13.5-16.0)
--- NOTE | 2025-02-17 22:27 | ESHP_ITS ---
Documentation for date of: 02/17/25 [facility] History of Present Illness Chief complaint: Acute shortness of breath History of present illness: Mr. Sarabia is a 69-year-old male with history of cirrhosis secondary to alcohol use, methamphetamine use, chronic smoker and abdominal hernia who presented to [facility] [place] on 02/17/2025 with a chief complaint of shortness of breath. The patient reports the acute onset of shortness of breath this morning with no associated cough, fever, or flu-like symptoms. However report 1 day of dark tarry stools. Does not use home oxygen. He denied chest pain, nausea, vomiting, dizziness, changes in bowel movements, abdominal pain, weight loss, or urinary symptoms. However, during the evaluation, the patient began to feel nauseated and dizzy. I instructed the patient to sit up to help with the dizziness, but shortly after, he began experiencing bloody emesis. His condition rapidly worsened, with weakness, tachypnea, and mild to moderate respiratory distress. The patient gives stating that he is feeling hot and then reported the onset of severe abdominal pain. When asked about his last alcohol intake, the patient reported drinking one bottle of vodka one month ago. ED Course: -Initial vitals were hypertensive with BP 179/100, tachycardic pulse 101, RR 20, temp 98.7, O2 sat 95% on 6 L NC -Labs significant for low platelet 81, PT 14.1, lactic acid 3.0 inprove, high T. bili 2.6, AST 52, high alkaline phosphatase 176, high ammonia of 110, BNP 109, albumin 2.6, Pro-Elia 0.23. UA negative for UTI. UTOX positive for amphetamine. -Chest x-ray was done and showed left base pneumonia with left pleural fluid, mild cardiac enlargement. -Therapeutic/diagnostic paracentesis was done and drained 9 L of nonbloody cloudy fluid - Patient was tachypneic and was started on CPAP which improved his respiration. - Significantly short of breath requiring 6 L supplemental oxygen. - About 900 cc of bloody emesis - Patient had 2+ bilateral lower extremity edema, and is given 40 mg Lasix - Patient was started on SBP prophylaxis ceftriaxone, doxycycline, albumin PPI prophylaxis, Zofran for nausea and vomiting, dilaudid for pain. - Dr. Sinclair on board -Patient was admitted for decompensated liver cirrhosis evaluation and management. Review of Systems Review of systems otherwise negative except what is mentioned above. Past Medical History: Mentioned above Family History: Noncontributory Surgical History: none Social History: Current active smoker, history of heavy alcohol use, amphetamine Current Medications: Pending med rec Allergies: No known drug allergies Exam Vital Signs Temp Pulse Resp BP Pulse Ox O2 Del Method O2 Flow Rate 97.7 F 74 14 152/94 H 96 Room Air 2 02/17/25 22:06 02/17/25 22:08 02/17/25 22:08 02/17/25 22:06 02/17/25 22:06 02/17/25 22:06 02/17/25 22:08 Narrative Exam General: Awake and in moderate to severe acute distress. Toxic appearing, severely short of breath and tachypneic HEENT: Normocephalic, atraumatic, mucous membranes moist. Heart: Sinus tachycardia, no murmurs. Lungs: Bilateral crackles, accessory muscle use Abdomen: Tense, ascitic pattern, significant distention noted. Neurologic: Alert and oriented x3, no gross neurological deficit, and patient able to move all 4 extremities. Extremities: 2+ bilateral lower extremity edema Skin: No rash or ecchymoses. Results: Labs 02/18/25 13:55 02/18/25 05:19 Labs: Short CBC 02/17/25 Range/Units 15:04 WBC 4.2 (3.8-10.6) Thou/mm3 Hgb 14.2 (13.5-16.0) g/dL Hct 40.6 L (41.0-53.0) % Plt Count 89 L (140-440) Thou/mm3 BMP 02/17/25 15:04 Sodium 141 Potassium 4.4 Chloride 108 H Carbon Dioxide 26.0 BUN 12 Creatinine 1.0 Glucose 153 H Calcium 8.5 Liver Function 02/17/25 Range/Units 15:04 Total Bilirubin 2.6 H (0.3-1.2) mg/dL AST 52 H (0-34) U/L ALT 32 (10-49) U/L Alkaline Phosphatase 176 H (46-116) U/L Albumin 2.6 L (3.4-4.8) gm/dL Urine 02/17/25 Range/Units 16:18 Urine Color Yellow (Lt Yel-Yel) Urine Clarity Clear (Clear/Hazy) Urine pH 6.0 (5.0-7.0) Ur Specific Aline 1.011 (1.001-1.035) Urine Protein Negative (Neg - Trace) Urine Glucose (UA) Negative (Negative) ABG Interpretation ABG results: 02/17/25 15:04 VBG pH 7.38 VBG pCO2 44 VBG pO2 40 VBG Base Excess 0 Quality Measures Quality Measures VTE prophylaxis Advance care planning discussed with:: patient Medications Home Medications and Allergies Home Medications ?Medication ?Instructions ?Recorded ?Confirmed ?Type benazepril 40 mg tablet (Lotensin) 25 mg PO BID ##0 History docusate sodium 250 mg capsule 250 mg PO QDAY PRN CONS TIPATION #0 06/25/14 History (DOK) caps diphenhydramine HCl 25 mg capsule 25 mg PO HS #0 caps 12/25/15 History Oxycodone Hcl * (ROXICODONE *) 10 mg PO Q6HR PRN PAIN #0 tabs 12/24/16 History Allergies Allergy/AdvReac Type Severity Reaction Status Date / Time No Known Allergies Allergy Verified 10/25/21 13:00 Visit Medications Acetaminophen (Acetaminophen 325 Mg Tablet) 650 mg PO Q6H PRN PRN Reason: Fever >100.4 Stop: 03/19/25 20:23 Carvedilol (Carvedilol 3.125 Mg Tablet) 6.25 mg PO BIDWM STEVE Stop: 03/20/25 07:59 Ceftriaxone Sodium/Dextrose (Rocephin/D5w 1gm Iv Premix) 1 gm in 50 mls @ 100 mls/hr IV QDAY STEVE Stop: 02/25/25 08:59 Albumin Human (Albuminar-25 Ivpb) 12.5 gm in 50 mls @ 100 mls/hr IV QDAY STEVE Stop: 03/19/25 20:07 Pantoprazole Sodium (Protonix/Ns 80mg Iv Premix) 80 mg in 100 mls @ 10 mls/hr IV Q10H STEVE Stop: 02/20/25 18:10 Octreotide Acetate 1,000 mcg/ (Sodium Chloride) 102 mls @ 5.1 mls/hr IV .Q20H STEVE; Protocol Stop: 02/22/25 20:11 Octreotide Acetate 1,000 mcg/ (Sodium Chloride) 102 mls @ 5.1 mls/hr IV .Q20H ONE; Protocol Stop: 02/18/25 16:14 Last Admin: 02/17/25 21:15 Dose: 50 mcg/hr, 5.1 mls/hr Albumin Human (Albuminar-25 Ivpb) 25 gm in 100 mls @ 100 mls/hr IV Q1H STEVE Stop: 02/17/25 22:29 Albumin Human (Albuminar-25 Ivpb) 20 gm in 80 mls @ 100 mls/hr IV X1 ONE Stop: 02/17/25 23:17 Sodium Chloride (Ns) 1,000 mls @ 100 mls/hr IV .Q10H STEVE Stop: 03/19/25 22:14 Lactulose (Lactulose Syrup 20 Gm/30 Ml Udc) 20 gm PO TID STEVE; Protocol On Hold: 02/17/25 22:05 Stop: 03/19/25 21:59 Ondansetron HCl (Ondansetron Inj 2 Mg/Ml Inj 2 Ml) 4 mg IVP Q6HR PRN; Protocol PRN Reason: NAUSEA OR VOMITING Stop: 03/19/25 20:06 Last Admin: 02/17/25 20:35 Dose: 4 mg Discontinued Medications Furosemide (Furosemide Inj 10 Mg/Ml 4ml Vial) 40 mg IVP X1 ONE Stop: 02/17/25 14:56 Last Admin: 02/17/25 15:06 Dose: 40 mg Hydromorphone HCl (Hydromorphone Inj 2 Mg/Ml Vial) 0.5 mg IVP X1 ONE Stop: 02/17/25 20:32 Last Admin: 02/17/25 21:12 Dose: 0.5 mg Ceftriaxone Sodium 2 gm/ (Sodium Chloride) 50 mls @ 100 mls/hr IV X1 ONE Stop: 02/17/25 16:21 Last Infusion: 02/17/25 17:19 Dose: Infused Doxycycline Hyclate 100 mg/ (Sodium Chloride) 100 mls @ 100 mls/hr IV X1 ONE Stop: 02/17/25 16:50 Last Infusion: 02/17/25 18:20 Dose: Infused Pantoprazole Sodium (Protonix/Ns 80mg Iv Premix) 80 mg in 100 mls @ 400 mls/hr IV X1 ONE Stop: 02/17/25 20:25 Last Admin: 02/17/25 20:34 Dose: 400 mls/hr Lidocaine HCl (Lidocaine Inj Pf 1% 30 Ml Vial) 10 ml INFL X1 ONE Stop: 02/17/25 16:31 Last Admin: 02/17/25 16:45 Dose: 10 ml Ondansetron HCl (Ondansetron Inj 2 Mg/Ml Inj 2 Ml) 4 mg IVP X1 ONE; Protocol Stop: 02/17/25 20:08 Pantoprazole Sodium (Pantoprazole Inj 40 Mg Vial) 40 mg IVP BID STEVE Stop: 03/19/25 20:59 Assessment & Plan Plan Mr. Sarabia is a 69-year-old male with history of cirrhosis secondary to alcohol use, methamphetamine use, chronic smoker and abdominal hernia who presented to [facility] [place] on 02/17/2025 with a chief complaint of shortness of breath. The patient deteriorated in the evening in the ED, presenting with bloody emesis, nausea, severe abdominal pain, and respiratory distress. Admitted for decompensated liver cirrhosis evaluation and management #Active upper gi bleed #Significant Hematemesis #Acute on chronic decompensated liver cirrhosis 07/06 #Alcohol use dependency #Ascites #Status post large volume paracentesis, drained 9 L # Esophageal varices on CT DDX; decompensated cirrhosis versus esophageal varices The patient with hx decompensated liver cirrhosis and suspected esophageal varices, presented with shortness of breath. His condition worsened rapidly with tachypnea, dizziness, and 450 cc of bloody hematemesis, along with severe abdominal pain. On exam, he had tense ascites and abdominal distention, lower extremities edema. Lab results showed lactic acidosis (3.0, improved to 2.0 after albumin) and elevated ammonia (110), indicating severe liver dysfunction. The hematemesis is likely due to esophageal varices, a complication from portal hypertension in cirrhosis. 09/04/2024 CT chest/ABD/pelvis -esophageal perigastric varices, 27 mm umbilical hernia containing small bowel loop. SAAG>1.1 Child-Morrison Score 10, CLASS C- End-stage cirrhosis with very poor prognosis. MELD Score 1 - Albumin infusion - Octreotide ggt - Lactulose syrup - IV fluid hydration - Zofran 4 mg for nausea/vomiting - Protonix 4 mg IVP - Coreg 6.225 p.o. BIDM - Pain control - Monitor vital signs Q4 - GI consulted, recommendations appreciated - Continue to monitor H&H - Paracentesis amylase,Peritoneal Fluid Routine - N.p.o. after midnight - Strict ins and out - pending new CT abd/pelvis - Cardiac echo, pending #Acute hypoxic respiratory failure #Left base pneumonia #Suspected left side pleural effusion #BLE edema Patient is in acute respiratory distress requiring 6 L nasal cannula on admission, tachycardic 101, tachypneic 24. Now improved SOB 2 L NC. On examination bilateral crackles, accessory muscle use Chest x-ray showed left base pneumonia with left pleural fluid. Negative COVID- 19, influenza A and B. Procal 0.23. No leukocytosis. - Started ceftriaxone 1gm - CPAP as needed -Supplemental O2, titrate as tolerated to maintain SpO2 >93% -Blood cultures -Sputum cultures #Methamphetamine intoxication Utox positive for methamphetamine - Monitor for withdrawals symptoms -Counseled regarding dangers and consequences. -Social service referral #Acute kidney injury Likely due dehydration and GI loss. Cr 1.0 , at baseline -Avoid nephrotoxins -Monitor renal panel -Renally dosed medications #Hx of HTN Patient has a history of hypertension for which he is noncompliant with his home regimen, he said he ran out months ago. - Pending [facility] Hospital management: Lines: peripheral IV Diet: NPO GI prophylaxis: pantoprazole Disposition: tele for decompensated liver cirrhosis ,on octreotide drip CODE STATUS: Full code Patient seen and assessed under supervision of attending physician and discuss with senior resident Dr. López PGY-2 Cadence Webb MD PGY-1, Internal Medicine Please note: this document was transcribed using voice recognition technology; minor inaccuracies may be present. Attending Provider Attestation/Addendum After examination of the patient and review of the clinical data I feel that this patient needs admission to the hospital for further treatment/evaluation. Plan of care discussed with patient and is in agreement. I Crystal Franco MD, attest that I was physically present for downing portions of evaluation, and examined patient, labs and imagings and plan of care were discussed with IM residents team, and I agree with the findings and plans documented above.
[2025-02-18] VITALS (21 sets, daily range): BP systolic 133–172; BP diastolic 69–117; PULSE 70–91; RESP 12–96; TEMP 36.1–37.6; O2SAT 93–97; BMI 27.5; BMI 27.9
[2025-02-18] MEDS: ALBUMIN HUMAN 25% IVPB 25 GM/100 ML BTL IV ×2 (00:31→01:28)
[2025-02-18] MEDS: ALBUMIN HUMAN 25% IV (02:33)
[2025-02-18] MEDS: MORPHINE SULF INJ 4 MG/ML VIAL 1 MG IVP (04:12)
[2025-02-18] MEDS: ONDANSETRON INJ 2 MG/ML INJ 2 ML 4 MG IVP (05:29)
[2025-02-18] MEDS: SODIUM CHLORIDE 0.9% 1000 ML 1,000 ML 100 ML IV (05:29)
[2025-02-18 05:59] LABS: Basophils # (Auto) 0.0 Thou/mm3 (0.0-0.2); Basophils % (Auto) 0 % (0-2.5); Eosinophils # (Auto) 0.1 Thou/mm3 (0.0-0.5); Eosinophils % (Auto) 1 % (0-10); Hematocrit 28.1 % (41.0-53.0); Hemoglobin 9.9 g/dL (13.5-16.0); Immature Granulocytes Auto 0.02 Thou/mm3 (0.00-0.00); Lymphocytes # (Auto) 0.6 Thou/mm3 (1.0-4.8); Lymphocytes % (Auto) 13 % (10-50); Mean Corpuscular HGB Conc 35.2 g/dl (31.0-37.0); Mean Corpuscular Hemoglobin 33.6 pg (25.0-35.0); Mean Corpuscular Volume 95 fL (80-100); Monocytes # (Auto) 0.4 Thou/mm3 (0.0-0.8); Monocytes % (Auto) 9 % (0-12); Neutrophils # (Auto) 3.2 Thou/mm3 (1.8-7.7); Neutrophils % (Auto) 75 % (37-80); Nucleated Red Blood Cell # 0.00 Thou/mm3 (0.00-0.00); Nucleated Red Blood Cell % 0 /100 WBC (0); RDW Standard Deviation 54.7 fL (35.1-43.9); Red Blood Count 2.95 Miln/mm3 (4.50-5.90); White Blood Count 4.2 Thou/mm3 (3.8-10.6)
[2025-02-18 06:05] LABS: Platelet Count 64 Thou/mm3 (140-440)
[2025-02-18 06:33] LABS: Slide Review Platelets confirmed
[2025-02-18 06:36] LABS: Alanine Aminotransferase 21 U/L (10-49); Albumin, Serum 2.8 gm/dL (3.4-4.8); Albumin/Globulin Ratio 1.0 (1.2-2.2); Alkaline Phosphatase 108 U/L (46-116); Anion Gap 9 (7-16); Aspartate Amino Transferase 36 U/L (0-34); BUN/Creatinine Ratio 11 Ratio (12-20); Bilirubin,Total 2.9 mg/dL (0.3-1.2); Blood Urea Nitrogen 11 mg/dL (9-23); Calcium 8.1 mg/dL (8.3-10.6); Calcium (Corrected) 9.1 mg/dL (8.5-10.1); Carbon Dioxide 25.5 mMol/L (20.0-31.0); Chloride 110 mMol/L (98-107); Creatinine (Component) 1.0 mg/dL (0.6-1.3); Estimated Creatinine Clearance 79.3 mL/min (>60); Globulin 2.8 gm/dL (2.3-3.5); Glucose 130 mg/dL (74-106); Magnesium 1.7 mg/dL (1.6-2.6); Osmolality,Calculated 288 (275-295); Phosphorous 3.4 mg/dL (2.4-5.1); Potassium 4.9 mMol/L (3.4-5.1); Sodium 144 mMol/L (136-145); Total Protein 5.6 gm/dL (5.7-8.2); eGFR > 60 See Note
--- NOTE | 2025-02-18 07:25 | ESPR_ITS ---
<Statement entered by Reynaldo Boston MD - 02/18/25 15:29> Patient seen and assessed in hospital bed after EGD with GI. Patient is awake and answering questions appropriately. Family bedside was told about the diagnosis of cirrhosis likely secondary to chronic hepatitis C infection and alcohol-use disorder. EGD results showed Grade II esophageal varices which were cauterized; will continue IV octreotide and protonix. Additionally, added chronic medications for cirrhosis including coreg, lactulose and spironolactone. Patient had a large-volume paracentesis which is pending culture/studies - on IV ceftriaxone for SBP prophylaxis. Counciled patient on abstaining from alcohol and meth-use as these two can worsen his liver cirrhosis. Ultimately, patient understands that he will need to follow-up with a GI specialist outpatient so that he can be referred to a transplant center. I have personally seen and examined the patient. I agree with the resident's assessment and plan as documented below. Reynaldo Boston DO PGY-2 Internal Medicine - GME Documentation for date of: 02/18/25 Subjective Subjective Interval history: Admitted overnight for acute decompensated liver cirrhosis s/p paracentesis, removed 9L fluid, continue IV albumin. Per Light's criteria, fluid is transudative, likely secondary to above. Was diagnosed with hep C in 1973 but untreated, positive for Hep C Ab on panel, pending titer. Has been drinking since 11 years old, last drink 1 month ago. Patient has MELD score 13 but not candidate for liver transplant. Patient denies ever having paracentesis or EGD done. EEG completed by Dr. Sinclair this morning, found multiple bleeding grade 2 esophageal varices, banded. Recommended IV Protonix, octreotide for 5 days, and promethazine. Will keep n.p.o. today per recommendations. Started on spironolactone 50 mg daily, will continue lactulose for high ammonia levels. Also reports 40 year history of tobacco use, smoked 1PPD, no longer smoking. Does not use oxygen at home but has inhaler. Patient does not know if he has COPD but he likely does. Has venostasis changes in lower extremities but denies pain, will order doppler to rule out DVT given hypercoaguable state. Exam Vital Signs Temp Pulse Resp BP Pulse Ox O2 Del Method O2 Flow Rate 97.5 F 79 21 H 133/69 H 97 Nasal Cannula 2 02/18/25 04:00 02/18/25 04:00 02/18/25 04:00 02/18/25 04:00 02/18/25 04:00 02/18/25 04:00 02/18/25 04:00 Narrative Exam Physical Exam General: Somewhat drowsy but in no acute distress. Answering questions appropriately, slow to answer. HEENT: Normocephalic, atraumatic, mucous membranes moist. Jaundice, scleral icterus. Heart: Regular rate and rhythm, normal S1 and S2, no murmurs. Lungs: Clear to auscultation with no wheezing or crackles. Abdomen: Soft, slightly distended, nontender, positive bowel sounds. Mild ascites. No guarding or rebound tenderness. Neurologic: Alert and oriented x3, no gross neurological deficit, and patient able to move all 4 extremities. Extremities: +1 pitting edema bilaterally. Skin: Venostasis skin changes on left lower extremity. Objective Labs 02/19/25 04:50 02/19/25 04:50 Labs: Laboratory Results - last 24 hr 02/17/25 02/17/25 02/17/25 15:04 16:18 18:21 WBC 4.2 RBC 4.18 L Hgb 14.2 Hct 40.6 L MCV 97 MCH 34.0 MCHC 35.0 RDW Std Deviation 56.2 H Plt Count 89 L Neut % (Auto) 66 Lymph % (Auto) 17 Newton % (Auto) 11 Eos % (Auto) 5 Baso % (Auto) 1 Neut # (Auto) 2.8 Lymph # (Auto) 0.7 L Newton # (Auto) 0.5 Eos # (Auto) 0.2 Baso # (Auto) 0.0 Immature Gran # (Auto) 0.01 H Absolute Nucleated RBC 0.00 Immature Gran % 0 Nucleated RBC % 0 PT 14.1 H INR 1.3 APTT 30.7 VBG pH 7.38 VBG pCO2 44 VBG pO2 40 VBG O2 Sat (Gauri) 74 L VBG Base Excess 0 Sodium 141 Potassium 4.4 Chloride 108 H Carbon Dioxide 26.0 Anion Gap 7 BUN 12 Creatinine 1.0 Estim Creat Clear Calc 79.2 eGFR > 60 BUN/Creatinine Ratio 12 Glucose 153 H Calculated Osmolality 283 Lactic Acid 3.0 H Calcium 8.5 Corrected Calcium 9.6 Phosphorus 3.0 Magnesium 1.9 Total Bilirubin 2.6 H AST 52 H ALT 32 Alkaline Phosphatase 176 H Ammonia 110 H* Lactate Dehydrogenase B-Natriuretic Peptide 109 H Total Protein 6.6 Albumin 2.6 L Globulin 4.0 H Albumin/Globulin Ratio 0.7 L Procalcitonin 0.23 Ur Collection Type Clean Catch Urine Color Yellow Urine Clarity Clear Urine pH 6.0 Ur Specific [place] 1.011 Urine Protein Negative Urine Glucose (UA) Negative Urine Ketones Negative Urine Blood Negative Urine Nitrite Negative Urine Bilirubin Negative Urine Urobilinogen (Auto) Negative Ur Leukocyte Esterase Negative Urine RBC 1 Urine WBC 1 Ur Squamous Epith Cells 1 Urine Bacteria None Ur Culture Indicated? Not Indicated Peritoneal Color Straw Peritoneal Appearance Clear Peritoneal WBC 151 Peritoneal RBC 198 Periton Polynucl WBCs 9 Periton Mononucl WBCs 91 Peritoneal Tot Protein < 2 Peritoneal Albumin < 1.0 Peritoneal LDH 48 Peritoneal Glucose 136 Peritoneal Amylase < 20 Urine Opiates Screen Negative Urine Fentanyl Screen Negative Ur Barbiturates Screen Negative U Amphetamin/Meth Scrn Positive A U Benzodiazepines Scrn Negative U Cocaine Metab Screen Negative U Marijuana (THC) Screen Negative Urine Alcohol Negative Misc Test Result Blood Type Antibody Screen Crossmatch Blood Bank Wristband ID 02/17/25 02/17/25 02/17/25 19:06 20:47 22:19 WBC RBC Hgb 11.5 L D Hct 33.0 L MCV MCH MCHC RDW Std Deviation Plt Count Neut % (Auto) Lymph % (Auto) Newton % (Auto) Eos % (Auto) Baso % (Auto) Neut # (Auto) Lymph # (Auto) Newton # (Auto) Eos # (Auto) Baso # (Auto) Immature Gran # (Auto) Absolute Nucleated RBC Immature Gran % Nucleated RBC % PT INR APTT VBG pH VBG pCO2 VBG pO2 VBG O2 Sat (Gauri) VBG Base Excess Sodium Potassium Chloride Carbon Dioxide Anion Gap BUN Creatinine Estim Creat Clear Calc eGFR BUN/Creatinine Ratio Glucose Calculated Osmolality Lactic Acid 2.3 H Calcium Corrected Calcium Phosphorus Magnesium Total Bilirubin AST ALT Alkaline Phosphatase Ammonia Lactate Dehydrogenase 239 B-Natriuretic Peptide Total Protein Albumin Globulin Albumin/Globulin Ratio Procalcitonin Ur Collection Type Urine Color Urine Clarity Urine pH Ur Specific [place] Urine Protein Urine Glucose (UA) Urine Ketones Urine Blood Urine Nitrite Urine Bilirubin Urine Urobilinogen (Auto) Ur Leukocyte Esterase Urine RBC Urine WBC Ur Squamous Epith Cells Urine Bacteria Ur Culture Indicated? Peritoneal Color Peritoneal Appearance Peritoneal WBC Peritoneal RBC Periton Polynucl WBCs Periton Mononucl WBCs Peritoneal Tot Protein Peritoneal Albumin Peritoneal LDH Peritoneal Glucose Peritoneal Amylase Urine Opiates Screen Urine Fentanyl Screen Ur Barbiturates Screen U Amphetamin/Meth Scrn U Benzodiazepines Scrn U Cocaine Metab Screen U Marijuana (THC) Screen Urine Alcohol Misc Test Result Blood Type O Negative Antibody Screen NEGATIVE Crossmatch See Detail Blood Bank Wristband ID Yes 02/18/25 05:19 WBC 4.2 RBC 2.95 L Hgb 9.9 L Hct 28.1 L MCV 95 MCH 33.6 MCHC 35.2 RDW Std Deviation 54.7 H Plt Count 64 L D Neut % (Auto) 75 Lymph % (Auto) 13 Newton % (Auto) 9 Eos % (Auto) 1 Baso % (Auto) 0 Neut # (Auto) 3.2 Lymph # (Auto) 0.6 L [place] # (Auto) 0.4 Eos # (Auto) 0.1 Baso # (Auto) 0.0 Immature Gran # (Auto) 0.02 H Absolute Nucleated RBC 0.00 Immature Gran % 1 H Nucleated RBC % 0 PT INR APTT VBG pH VBG pCO2 VBG pO2 VBG O2 Sat (Gauri) VBG Base Excess Sodium 144 Potassium 4.9 D Chloride 110 H Carbon Dioxide 25.5 Anion Gap 9 BUN 11 Creatinine 1.0 Estim Creat Clear Calc 79.3 eGFR > 60 BUN/Creatinine Ratio 11 L Glucose 130 H Calculated Osmolality 288 Lactic Acid Calcium 8.1 L Corrected Calcium 9.1 Phosphorus 3.4 Magnesium 1.7 Total Bilirubin 2.9 H AST 36 H ALT 21 Alkaline Phosphatase 108 D Ammonia Lactate Dehydrogenase B-Natriuretic Peptide Total Protein 5.6 L Albumin 2.8 L Globulin 2.8 Albumin/Globulin Ratio 1.0 L Procalcitonin Ur Collection Type Urine Color Urine Clarity Urine pH Ur Specific [place] Urine Protein Urine Glucose (UA) Urine Ketones Urine Blood Urine Nitrite Urine Bilirubin Urine Urobilinogen (Auto) Ur Leukocyte Esterase Urine RBC Urine WBC Ur Squamous Epith Cells Urine Bacteria Ur Culture Indicated? Peritoneal Color Peritoneal Appearance Peritoneal WBC Peritoneal RBC Periton Polynucl WBCs Periton Mononucl WBCs Peritoneal Tot Protein Peritoneal Albumin Peritoneal LDH Peritoneal Glucose Peritoneal Amylase Urine Opiates Screen Urine Fentanyl Screen Ur Barbiturates Screen U Amphetamin/Meth Scrn U Benzodiazepines Scrn U Cocaine Metab Screen U Marijuana (THC) Screen Urine Alcohol Misc Test Result Platelets confirmed Blood Type Antibody Screen Crossmatch Blood Bank Wristband ID ABG Interpretation ABG results: 02/17/25 15:04 VBG pH 7.38 VBG pCO2 44 VBG pO2 40 VBG Base Excess 0 Quality Measures Quality Measures none Advance care planning discussed with:: patient Assessment & Plan Assessment Current Active Medications: Generic Name Dose Route Start Last Admin Trade Name Rakel PRN Reason Stop Dose Admin Acetaminophen 650 mg 02/17/25 20:24 Acetaminophen 325 Mg Tablet PO 03/19/25 20:23 Q6H PRN Fever >100.4 Carvedilol 6.25 mg 02/18/25 08:00 Carvedilol 3.125 Mg Tablet PO 03/20/25 07:59 BIDWM STEVE Ceftriaxone Sodium/Dextrose 1 gm in 50 mls @ 100 mls/hr 02/18/25 09:00 Rocephin/D5w 1gm Iv Premix IV 02/25/25 08:59 QDAY STEVE Albumin Human 12.5 gm in 50 mls @ 100 mls/hr 02/18/25 09:00 Albuminar-25 Ivpb IV 03/20/25 08:59 QDAY STEVE Octreotide Acetate 1,000 mcg/ 102 mls @ 5.1 mls/hr 02/18/25 16:15 Sodium Chloride IV 02/22/25 20:11 .Q20H STEVE Protocol 50 MCG/HR Octreotide Acetate 1,000 mcg/ 102 mls @ 5.1 mls/hr 02/17/25 20:15 02/17/25 21:15 Sodium Chloride IV 02/18/25 16:14 50 mcg/hr .Q20H ONE 5.1 mls/hr Protocol Administration 50 MCG/HR Sodium Chloride 1,000 mls @ 100 mls/hr 02/17/25 22:15 02/18/25 05:29 Ns IV 03/19/25 22:14 100 mls/hr .Q10H STEVE Administration Lactulose 20 gm 02/17/25 22:00 02/18/25 00:32 Lactulose Syrup 20 Gm/30 Ml Udc PO 03/19/25 21:59 Not Given On Hold: 02/17/25 22:05 TID STEVE Protocol Ondansetron HCl 4 mg 02/17/25 20:07 02/18/25 05:29 Ondansetron Inj 2 Mg/Ml Inj 2 Ml IVP 03/19/25 20:06 4 mg Q6HR PRN Administration NAUSEA OR VOMITING Protocol Pantoprazole Sodium 40 mg 02/18/25 09:00 Pantoprazole Inj 40 Mg Vial IVP 03/20/25 08:59 BID STEVE Plan Patient is a 69-year-old male with PMH of cirrhosis secondary to alcohol use, hepatitis C (diagnosed 1973), methamphetamine use, chronic smoker and abdominal hernia who presented on 02/17/25 for shortness of breath, admitted for decompensated liver cirrhosis. #Acute on chronic decompensated liver cirrhosis 2/ #Hx of alcohol use #Hepatitis C (diagnosed 1973), untreated #Ascites #S/p paracentesis (02/17/25) #Lactic acidosis, resolved #Hyperammonemia #Thrombocytopenia Has history of decompensated liver cirrhosis, secondary to untreated hepatitis C and/or chronic alcohol use. Drinking since 11 years old, last drink 1 month ago. Has history of hepatitis C, diagnosed in 1973, denies treatment. On exam, patient has prominent ascites, no encephalopathy. Elevated lactic acid 3.0 and ammonia 110, likely secondary to severe decompensation. Platelets 89,000 > 64,000. Utox negative for alcohol. Hep panel showed hep C Ab. CT C/A/P 02/18 shows cirrhosis with liver lobulated contour, no focal liver lesions, moderate ascites, prominent splenomegaly, esophageal varices. S/p paracentesis in ED, removed 9L, repleted with IV albumin. Scores: SAAG>1.1 - portal hypertension Child-Morrison Score 10, CLASS C- End-stage cirrhosis with very poor prognosis. MELD-Na 13, 6.0% estimated 3 month mortality Light's criteria - serum protein high 0.6, pleural protein 2.0, serum LDH 239, pleural LDH 48; transudative Plan: - IV albumin - Octreotide ggt - Lactulose 20 mg TID - Spiranolactone 50 mg daily, uptitrate as tolerated - Follow up hep C titer - Hold Coreg 6.225 p.o. BIDM and Lasix 40 mg - GI Dr. Sinclair consulted, recommendations appreciated: keep NPO, continue octreotide for another 5 days, continue IV protonix, promethazine 6.25mg IV q4hr - Strict ins and out - Zofran 4 mg prn #Hematemesis #Grade II esophageal varices #S/p banding (02/18/25) Varices observed on previous CT A/P 09/2024, reconfirmed on CT A/P 02/18/25. Consulted GI Dr. Sincliar on admission. Found grade II esophageal varicies on EGD, banded. Plan: - Octreotide 50 mcg/hr for 5 days (02/18- - IV CFX 1g - CTM CBC - Transfuse if Hgb <7 - Consulted GI Dr. Sinclair as above, appreciate recommendations #Shortness of breath #Left base pneumonia #Alcoholic cardiomyopathy? Dyspnea on admission, became tachypnic and tachycardic, saturated as low as 93%. Was started on 6 L nasal cannula. Saturating well on 2L s/p paracentesis. CXR showed left base pneumonia with left pleural fluid. Negative COVID-19, influenza A and B. Procal 0.23. No leukocytosis. Given alcohol use history and substance abuse, possible aspiration pneumonia. 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 No prior echo on record. Plan: - IV Ceftriaxone 1gm as above -Supplemental O2, titrate as tolerated to maintain SpO2 >92% -Blood cultures - F/u echo #Methamphetamine use #Tobacco use Utox positive for methamphetamine. Smoked 1 ppd for 40 years since young age, quit. - Monitor for withdrawals symptoms - Counseled on cessation - Social service referral #Hx of HTN Patient has a history of hypertension for which he is noncompliant with his home regimen. - Pending official med rec Health Maintenance Disposition: tele for decompensated liver cirrhosis DVT prophylaxis: SCDs GI prophylaxis: Protonix Diet: NPO CODE STATUS: Full Patient plan of care was discussed with the resident, Dr. Boston, and attending physician, Dr. Wahl. Paulette Brunner, PGY-1 Attending Provider Attestation/Addendum I have examined the patient, reviewed labs and imaging findings, discussed the case with the resident(s), and reviewed entered orders. I agree with the plan of care as outlined in this note, with these additional summaries/recommendations: Patient seen at bedside after EGD. EGD revealed grade 2 esophageal varices which were banded and fresh blood seen throughout the stomach with hypertensive portal gastropathy. Patient will remain n.p.o., continue octreotide x 5 days, continue IV Protonix, continue promethazine, and continue to trend H&H. Continue to hold all chemical anticoagulation. Patient also diagnosed with decompensated cirrhosis. Etiology for cirrhosis hepatitis C versus previous alcohol use. He reports he received treatment for hepatitis C in the 70s or 80s. We will order viral load. Patient was counseled to continue to avoid alcohol use. Continue fluid restriction and low-salt diet. Start IV diuresis. Outpatient follow-up for vaccine series. Patient is status post paracentesis with approximately 9 L removed. Albumin repleted. No evidence of SBP. Start lactulose for elevated ammonia. No evidence of hepatic encephalopathy at this time today. Patient was counseled on substance abuse. Patient and family updated with the plan and in agreement. All questions answered to satisfaction. Please see residents note for additional details and management. Dr. Vish MD
[2025-02-18 09:00] LABS: Hepatitis A Antibody IgM Non Reactive (Non React); Hepatitis B Core Antibody IgM Non Reactive (Non React); Hepatitis B Surface Antigen Non Reactive (Non React); Hepatitis C Antibody Reactive (Non React)
--- NOTE | 2025-02-18 09:07 | PC.SS ---
Update: Plan is for patient to obtain EGD. Patient possesses GI bleed.
--- NOTE | 2025-02-18 09:10 | SUR.PHASEI ---
pt received from OR in recovery bay 3. pt asleep but responds to voice, breathing unlabored on nc 2l. v/s stable. report received from Bao CARBAJAL.
--- NOTE | 2025-02-18 09:45 | SUR.PHASEI ---
pt awake and alert, breathing unlabored on 2l nc. v/s stable. report called to Arpita CARBAJAL. pt will be transferred to room at this time.
[2025-02-18] MEDS: ALBUMIN HUMAN 25% IVPB 12.5 GM/50 ML BTL IV (10:35)
[2025-02-18] MEDS: cefTRIAXone/D5w 1gm IV premix 1 GM/50 ML BAG IV (10:35)
[2025-02-18] MEDS: AZITHROMYCIN INJ 500 MG in SODIUM CHLORIDE 0.9% 250 ML 250 ML 250 MG IV (11:26)
[2025-02-18] MEDS: LACTULOSE SYRUP 20 GM/30 ML UDC PO (13:14)
[2025-02-18] MEDS: PROMETHAZINE INJ 6.25 MG in SODIUM CHLORIDE 0.9% 50 ML 100.5 MG IV ×3 (13:15→21:22)
--- NOTE | 2025-02-18 13:24 | PC.SS ---
OCEAN [employer]AT CAPTAIN conducted bedside contact with the patient conduct initial assessment and to discuss discharge planning.? Patient asleep.? OCEAN [employer] BO[employer] CAPTAIN conducted phone contact with patient?s spouse, Lakeisha Sarabia .? Ms. Sarabia informed OCEAN CLAM BOAT CAPTAIN that she and patient were currently .? Ms. Sarabia stated that she and patient remain cordial with one another.? It was confirmed that the patient does not utilize DME to assist with ambulation.? Patient does not utilize home oxygen.? Currently on 2L nasal cannula.? Patient is able to complete ADL?s independently.? Patient?s PCP is Dr. Salvador [facility].? Patient does not possess any specialty providers.? Patient utilizes [facility] for medication services.? Discharge plan is for the patient to return home.? Family will provide transportation on behalf of the patient.? No further discharge needs identified by the patient?s ex-spouse.? No further intervention required at this time, vp digital marketing social media and crm will be available to address any further concerns.? Next of Kin: Lakeisha Sarabia D/C Plan: Home
[2025-02-18 14:24] LABS: Hematocrit 29.5 % (41.0-53.0); Hemoglobin 10.2 g/dL (13.5-16.0)
[2025-02-18] MEDS: SPIRONOLACTONE 25 MG TABLET 100 MG PO (14:46)
--- NOTE | 2025-02-18 15:57 | XR_ITS ---
Examination: Venous duplex lower extremity sonogram, bilateral. Date and time of exam: February 18, 2025 1636 hrs. Indications: Bilateral leg swelling and redness 6 months Technique: Multiple sonographic images of the deep venous system have been obtained. B-mode/2-D grayscale imaging of vascular structures and Doppler spectral analysis (waveforms) and color performed Both legs are examined. Findings: Deep venous systems do not demonstrate abnormal echogenicity. All visualized deep veins exhibit compressibility. All visualized deep veins exhibit augmentation. Impression: Negative for deep vein thrombosis
--- NOTE | 2025-02-18 16:10 | PC.SS ---
MANAGER FLOAT met with patient at bedside to confirm surrogate medical decision maker. Patient identified sister, Corine Vasquez ; as surrogate medical decision maker. Patient informed MANAGER FLOAT that discharge plan is for the patient to transition to SNF. Preferred facility is [facility]. SNF submittal pending.
--- NOTE | 2025-02-18 16:59 | PC.PT ---
Patient is safe to transfer to the bedside commode with a FWW and 1 staff assist for safety. RN made aware.
[2025-02-18] MEDS: OCTREOTIDE ACET INJ 1,000 MCG in SODIUM CHLORIDE 0.9% 100 ML 5.1 MCG IV (17:13)
--- NOTE | 2025-02-18 20:16 | XR_ITS ---
Examination: CT chest, without intravenous contrast. CT abdomen, without intravenous contrast. CT pelvis, without intravenous contrast. 2-D sagittal and coronal reconstructions. 3-D reconstructions. Date and time of exam:February 18, 2025 0817 hours, comparison September 04, 2024 INDICATIONS: Diagnosis cirrhosis, generalized abdominal pain today chest pain CTDI vol (mgy) 8.86 DLP (MGycm)[id number] Technique: Multiple CT images, 3.0 mm slice thickness, obtained chest, abdomen, pelvis, with the high-resolution 64 slice scanner.. Sagittal and coronal 2-D reconstructions are obtained. 3-D reconstructions Low dose protocols were performed. One or more of the following dose reduction techniques were used; automated exposure control, adjustment of the mA and/or KV according to patient size, use of iterative reconstruction technique. Findings: No thoracic aortic aneurysm dilatation. Pulmonary artery segments are not enlarged. Prominent vascular congestion with mild enlargement cardiac contour Prominent pneumonia left base with small left pleural effusion Retrocardiac gastric hernia, esophageal varices Cirrhosis, liver lobular contour no focal liver lesions Moderate ascites Prominent splenomegaly Portosystemic collateral vessels medial to the spleen No pancreatic mass Nodular thickening left adrenal gland No hydronephrosis No bowel obstruction 3 cm umbilical hernia defect containing fluid Urinary bladder intact No significant prostatomegaly Severe osteopenia with chronic osteoporotic compression, severe, L3 IMPRESSION: Significant left base pneumonia Cirrhosis Esophageal varices. Prominent splenomegaly. Moderate ascites
[2025-02-18 22:53] LABS: Hematocrit 27.6 % (41.0-53.0); Hemoglobin 9.6 g/dL (13.5-16.0)
[2025-02-19] VITALS (12 sets, daily range): BP systolic 122–189; BP diastolic 66–96; PULSE 62–95; RESP 14–99; TEMP 36.2–37.5; O2SAT 93–100; BMI 27.9
[2025-02-19] MEDS: PROMETHAZINE INJ 6.25 MG in SODIUM CHLORIDE 0.9% 50 ML 100.5 MG IV ×3 (01:31→09:12)
[2025-02-19] MEDS: LACTULOSE SYRUP 20 GM/30 ML UDC PO ×3 (05:20→21:13)
[2025-02-19 06:09] LABS: Basophils # (Auto) 0.0 Thou/mm3 (0.0-0.2); Basophils % (Auto) 1 % (0-2.5); Eosinophils # (Auto) 0.2 Thou/mm3 (0.0-0.5); Eosinophils % (Auto) 6 % (0-10); Hematocrit 27.6 % (41.0-53.0); Hemoglobin 9.5 g/dL (13.5-16.0); Immature Granulocytes Auto 0.02 Thou/mm3 (0.00-0.00); Lymphocytes # (Auto) 0.7 Thou/mm3 (1.0-4.8); Lymphocytes % (Auto) 20 % (10-50); Mean Corpuscular HGB Conc 34.4 g/dl (31.0-37.0); Mean Corpuscular Hemoglobin 33.3 pg (25.0-35.0); Mean Corpuscular Volume 97 fL (80-100); Monocytes # (Auto) 0.4 Thou/mm3 (0.0-0.8); Monocytes % (Auto) 11 % (0-12); Neutrophils # (Auto) 2.3 Thou/mm3 (1.8-7.7); Neutrophils % (Auto) 62 % (37-80); Nucleated Red Blood Cell # 0.00 Thou/mm3 (0.00-0.00); Nucleated Red Blood Cell % 0 /100 WBC (0); RDW Standard Deviation 56.4 fL (35.1-43.9); Red Blood Count 2.85 Miln/mm3 (4.50-5.90); White Blood Count 3.7 Thou/mm3 (3.8-10.6)
[2025-02-19 06:11] LABS: Platelet Count 67 Thou/mm3 (140-440)
[2025-02-19 06:31] LABS: Alanine Aminotransferase 31 U/L (10-49); Albumin, Serum 2.6 gm/dL (3.4-4.8); Albumin/Globulin Ratio 0.9 (1.2-2.2); Alkaline Phosphatase 108 U/L (46-116); Anion Gap 9 (7-16); Aspartate Amino Transferase 55 U/L (0-34); BUN/Creatinine Ratio 13 Ratio (12-20); Bilirubin,Total 2.6 mg/dL (0.3-1.2); Blood Urea Nitrogen 14 mg/dL (9-23); Calcium 8.3 mg/dL (8.3-10.6); Calcium (Corrected) 9.4 mg/dL (8.5-10.1); Carbon Dioxide 26.4 mMol/L (20.0-31.0); Chloride 111 mMol/L (98-107); Creatinine (Component) 1.1 mg/dL (0.6-1.3); Estimated Creatinine Clearance 72.1 mL/min (>60); Globulin 2.8 gm/dL (2.3-3.5); Glucose 95 mg/dL (74-106); Magnesium 1.6 mg/dL (1.6-2.6); Osmolality,Calculated 291 (275-295); Phosphorous 2.7 mg/dL (2.4-5.1); Potassium 4.2 mMol/L (3.4-5.1); Sodium 146 mMol/L (136-145); Total Protein 5.4 gm/dL (5.7-8.2); eGFR > 60 See Note
[2025-02-19] MEDS: ALBUMIN HUMAN 25% IVPB 12.5 GM/50 ML BTL IV (08:12)
[2025-02-19] MEDS: cefTRIAXone/D5w 1gm IV premix 1 GM/50 ML BAG IV (08:12)
[2025-02-19] MEDS: SPIRONOLACTONE 25 MG TABLET 50 MG PO ×2 (08:13→11:01)
--- NOTE | 2025-02-19 08:56 | PC.SS ---
PASSR completed. Patient meets Level I criteria. No PASSR follow up pending.
[2025-02-19] MEDS: AZITHROMYCIN INJ 500 MG in SODIUM CHLORIDE 0.9% 250 ML 250 ML 250 MG IV (09:12)
[2025-02-19] MEDS: Magnesium Sulfate 4 GM Ivpb 4 GM/50 ML BAG IV (09:12)
[2025-02-19 09:21] LABS: Slide Review Platelets confirmed
--- NOTE | 2025-02-19 10:12 | PC.SS ---
SS has sent inquiry to the local SNF using [facility]. SS was informed by DEXTER, Harde[facility] green is [facility].
--- NOTE | 2025-02-19 11:43 | PC.NURSE ---
Notified MD of third BM being bloody with clots. Per MD waiting for H&H draw.
--- NOTE | 2025-02-19 11:57 | ESPR_ITS ---
<Statement entered by Benton Villaseñor MD - 02/19/25 18:28> Overnight, noted to have 2 bowel movements and noted to have 1 bowel movement with kathleen blood. Labs done this morning showed hemoglobin 9.5, repeat hemoglobin is 10.8. Otherwise patient reported that he is feeling good. On physical examination, noted to have decreased asterixis. Venous Doppler of lower extremity is done in view of darkening of skin on left lower extremity but it is negative for DVT, likely due to chronic venous stasis. Currently continuing octreotide drip in view of esophageal varices as to complete course of 5 days and with lactulose in view of hepatic encephalopathy. Will continue ceftriaxone for SBP prophylaxis. Increase the dose of spironolactone to 100 mg and started carvedilol 3.125 mg twice daily as patient noted to have increased blood pressures. Hepatitis C titer was sent, pending. I have personally seen and examined the patient, agree with residents assessment and plan Patient plan of care was discussed with the attending physician, Dr. Vish Villaseñor, PGY2 Documentation for date of: 02/19/25 Subjective Subjective Interval history: Overnight head 2-3 bloody bowel movements, 1 diffusely bloody and the other containing clots, likely secondary to upper GI bleed. Hemoglobin 9.5 this morning, repeat hemoglobin 10.8. Unlikely having another acute bleed, will continue to monitor Hgb daily. No new complaints this morning. On exam, appears to have mild ascites, will likely need to perform another paracentesis in the near future. Continues to have mild lower extremity edema venous Doppler ultrasound of bilateral lower extremities were negative for DVTs. Skin changes likely chronic venous stasis, SCDs in place. Patient remains hypertensive with systolics in 140-150s. Restarted on carvedilol 3.125 mg BID and lisinopril 10 mg daily. Will increase spironolactone to 100 mg daily. Otherwise we will continue IV albumin, lactulose, octreotide, promethazine as per GI recommendations. Will follow up on hep C titer. Continue azithromycin for left base pneumonia. Platelets down trended to 67,000 today, will transfuse if drops below 50,000. Exam Vital Signs Temp Pulse Resp BP Pulse Ox O2 Del Method O2 Flow Rate 97.2 F 63 14 145/77 H 96 Nasal Cannula 1 02/19/25 10:56 02/19/25 11:01 02/19/25 10:56 02/19/25 11:01 02/19/25 10:56 02/19/25 10:56 02/19/25 10:56 Narrative Exam Physical Exam General: Somewhat drowsy but in no acute distress. Answering questions appropriately, slow to answer. HEENT: Normocephalic, atraumatic, mucous membranes moist. Jaundice, scleral icterus. Heart: Regular rate and rhythm, normal S1 and S2, no murmurs. Lungs: Clear to auscultation with no wheezing or crackles. Abdomen: Soft, slightly distended, nontender, positive bowel sounds. Mild ascites. No guarding or rebound tenderness. Neurologic: Alert and oriented x3, no gross neurological deficit, and patient able to move all 4 extremities. Extremities: +1 pitting edema bilaterally. Skin: Venostasis skin changes on left lower extremity. Objective Labs 02/20/25 05:12 02/20/25 05:12 Labs: Laboratory Results - last 24 hr 02/18/25 02/18/25 02/19/25 13:55 22:33 04:50 WBC 3.7 L RBC 2.85 L Hgb 10.2 L 9.6 L 9.5 L Hct 29.5 L 27.6 L 27.6 L MCV 97 MCH 33.3 MCHC 34.4 RDW Std Deviation 56.4 H Plt Count 67 L Neut % (Auto) 62 Lymph % (Auto) 20 [place] % (Auto) 11 Eos % (Auto) 6 Baso % (Auto) 1 Neut # (Auto) 2.3 Lymph # (Auto) 0.7 L [place] # (Auto) 0.4 Eos # (Auto) 0.2 Baso # (Auto) 0.0 Immature Gran # (Auto) 0.02 H Absolute Nucleated RBC 0.00 Immature Gran % 1 H Nucleated RBC % 0 Sodium 146 H Potassium 4.2 D Chloride 111 H Carbon Dioxide 26.4 Anion Gap 9 BUN 14 Creatinine 1.1 Estim Creat Clear Calc 72.1 eGFR > 60 BUN/Creatinine Ratio 13 Glucose 95 Calculated Osmolality 291 Calcium 8.3 Corrected Calcium 9.4 Phosphorus 2.7 Magnesium 1.6 Total Bilirubin 2.6 H AST 55 H ALT 31 Alkaline Phosphatase 108 Total Protein 5.4 L Albumin 2.6 L Globulin 2.8 Albumin/Globulin Ratio 0.9 L Misc Test Result Platelets confirmed ABG Interpretation ABG results: 02/17/25 15:04 VBG pH 7.38 VBG pCO2 44 VBG pO2 40 VBG Base Excess 0 Quality Measures Quality Measures VTE prophylaxis Advance care planning discussed with:: patient Assessment & Plan Assessment Current Active Medications: Generic Name Dose Route Start Last Admin Trade Name Freq PRN Reason Stop Dose Admin Acetaminophen 650 mg 02/17/25 20:24 Acetaminophen 325 Mg Tablet PO 03/19/25 20:23 Q6H PRN Fever >100.4 Carvedilol 3.125 mg 02/18/25 21:00 02/19/25 08:13 Carvedilol 3.125 Mg Tablet PO 03/20/25 20:59 3.125 mg BIDWM STEVE Administration Hydromorphone HCl 0.25 mg 02/19/25 07:32 Hydromorphone Inj 2 Mg/Ml Vial IVP 02/24/25 07:31 Q6HR PRN Pain 4-6 Hydromorphone HCl 0.5 mg 02/19/25 07:32 Hydromorphone Inj 2 Mg/Ml Vial IVP 02/24/25 07:31 Q6HR PRN Pain 7-10 Ceftriaxone Sodium/Dextrose 1 gm in 50 mls @ 100 mls/hr 02/18/25 09:00 02/19/25 08:12 Rocephin/D5w 1gm Iv Premix IV 02/25/25 08:59 100 mls/hr QDAY STEVE Administration Albumin Human 12.5 gm in 50 mls @ 100 mls/hr 02/18/25 09:00 02/19/25 08:12 Albuminar-25 Ivpb IV 03/20/25 08:59 100 mls/hr QDAY STEVE Administration Octreotide Acetate 1,000 mcg/ 102 mls @ 5.1 mls/hr 02/18/25 16:15 02/18/25 17:13 Sodium Chloride IV 02/22/25 20:11 50 mcg/hr .Q20H STEVE 5.1 mls/hr Protocol Administration 50 MCG/HR Azithromycin 500 mg/ Sodium 250 mls @ 250 mls/hr 02/18/25 09:39 02/19/25 09:12 Chloride IV 02/21/25 09:38 250 mls/hr QDAY STEVE Administration Promethazine HCl 6.25 mg/ 50.25 mls @ 100.5 mls/hr 02/18/25 11:30 02/19/25 09:12 Sodium Chloride IV 02/19/25 12:00 100.5 mls/hr Q4HR STEVE Administration Promethazine HCl 6.25 mg/ 50.25 mls @ 100.5 mls/hr 02/19/25 14:00 Sodium Chloride IV 03/21/25 13:59 Q4HR PRN NAUSEA Protocol Lactulose 20 gm 02/17/25 22:00 02/19/25 05:20 Lactulose Syrup 20 Gm/30 Ml Udc PO 03/19/25 21:59 20 gm TID STEVE Administration Protocol Ondansetron HCl 4 mg 02/17/25 20:07 02/18/25 05:29 Ondansetron Inj 2 Mg/Ml Inj 2 Ml IVP 03/19/25 20:06 4 mg Q6HR PRN Administration NAUSEA OR VOMITING Protocol Pantoprazole Sodium 40 mg 02/19/25 09:00 02/19/25 08:12 Pantoprazole Inj 40 Mg Vial IVP 03/21/25 08:59 40 mg QDAY STEVE Administration Spironolactone 100 mg 02/20/25 09:00 Spironolactone 25 Mg Tablet PO 03/22/25 08:59 DAILY STEVE Plan Patient is a 69-year-old male with PMH of cirrhosis secondary to alcohol use, hepatitis C (diagnosed 1973), methamphetamine use, chronic smoker and abdominal hernia who presented on 02/17/25 for shortness of breath, admitted for decompensated liver cirrhosis with hematemesis secondary to grade II esophageal varices. #Hematemesis #Grade II esophageal varices #S/p banding (02/18/25) #Hematochezia Varices observed on previous CT A/P 09/2024, reconfirmed on CT A/P 02/18/25. Consulted GI Dr. Sinclair on admission. Found grade II esophageal varicies on EGD, banded. New onset hematochezia 02/19, likely secondary to severe upper GI bleed, residual after banding. Hgb stable at 9-10. Plan: - Octreotide 50 mcg/hr for 5 days (02/18- - IV CFX 1g - Increase spiranolactone to 100 mg daily, uptitrate as tolerated - Coreg 3.225 BID - CTM CBC - Transfuse if Hgb <7 - Hold anticoagulation and chemical DVT prophylaxis - Consulted GI Dr. Sinclair as above, appreciate recommendations #Acute on chronic decompensated liver cirrhosis 2/ #Hx of alcohol use #Hepatitis C (diagnosed 1973), untreated #Ascites #S/p paracentesis (02/17/25) #Lactic acidosis, resolved #Hyperammonemia #Thrombocytopenia Has history of decompensated liver cirrhosis, secondary to untreated hepatitis C and/or chronic alcohol use. Drinking since 11 years old, last drink 1 month ago. Has history of hepatitis C, diagnosed in 1973, denies treatment. On exam, patient has prominent ascites, no encephalopathy, at baseline mentation. Elevated lactic acid 3.0 and ammonia 110, likely secondary to severe decompensation. Platelets 89,000 > 64,000. Utox negative for alcohol. Hep panel showed hep C Ab. CT C/A/P 02/18 shows cirrhosis with liver lobulated contour, no focal liver lesions, moderate ascites, prominent splenomegaly, esophageal varices. S/p paracentesis in ED, removed 9L, repleted with IV albumin. Scores: SAAG>1.1 - portal hypertension Child-Morrison Score 10, CLASS C- End-stage cirrhosis with very poor prognosis. MELD-Na 13, 6.0% estimated 3 month mortality Light's criteria - serum protein 0.6, pleural protein 2.0, serum LDH 239, pleural LDH 48; transudative Plan: - IV albumin - Lactulose 20 mg TID - Follow up hep C titer - GI Dr. Sinclair consulted, recommendations appreciated: keep NPO, continue octreotide for another 5 days, continue IV protonix, promethazine 6.25mg IV q4hr - Strict ins and out - Zofran 4 mg prn - Outpatient follow-up for hepatitis vaccine series - Counseled on alcohol cessation #Dyspnea #Left base pneumonia #Alcoholic cardiomyopathy? #COPD? Dyspnea on admission, became tachypnic and tachycardic, saturated as low as 93%. Was started on 6 L nasal cannula. Saturating well on 2L s/p paracentesis. CXR showed left base pneumonia with left pleural fluid. Negative COVID-19, influenza A and B. Procal 0.23. No leukocytosis. Given alcohol use history and substance abuse, possible aspiration pneumonia. 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 No prior echo on record. Likely history of COPD given extensive tobacco use in the past. Not on any medications nor uses oxygen at home. Plan: - IV Ceftriaxone 1gm as above - Azithromycin (02/18- - Supplemental O2, titrate as tolerated to maintain SpO2 >92%, wean as tolerated - Blood cultures - Follow up echo read #Hx of HTN Patient has a history of hypertension for which he is noncompliant with his home regimen. - Spironolactone and Coreg as above - Restarted lisinopril 10 mg - Pending official med rec #Methamphetamine use #Tobacco use Utox positive for methamphetamine. Smoked 1 ppd for 40 years since young age, quit. - Monitor for withdrawals symptoms - Counseled on cessation - Social service referral Health Maintenance Disposition: tele for decompensated liver cirrhosis DVT prophylaxis: SCDs GI prophylaxis: Protonix Diet: Clear liquid, advance to low sodium as tolerated CODE STATUS: Full Patient plan of care was discussed with the resident, Dr. Villaseñor, and attending physician, Dr. Wahl. Paulette Brunner, PGY-1 Attending Provider Attestation/Addendum I have examined the patient, reviewed labs and imaging findings, discussed the case with the resident(s), and reviewed entered orders. I agree with the plan of care as outlined in this note, with these additional summaries/recommendations: Patient seen at bedside. Patient endorsed having bright red bloody bowel movement today. Patient is s/p EGD which revealed grade 2 esophageal varices which were banded and fresh blood seen throughout the stomach with hypertensive portal gastropathy. Bright red bloodly bowelmovements most likely secondary to esophageal varcies although we will follow-up with gastroenterology. Continue clear liquid diet., continue octreotide x 5 days, continue IV Protonix, continue promethazine, and continue to trend H&H. Continue to hold all chemical anticoagulation. Patient also diagnosed with decompensated cirrhosis. Etiology for cirrhosis hepatitis C versus previous alcohol use. He reports he received treatment for hepatitis C in the 70s or 80s. Viral load pending. Patient was counseled to continue to avoid alcohol use. Continue fluid restriction and low- salt diet. Continue diuresis. Outpatient follow-up for vaccine series. Patient is status post paracentesis with approximately 9 L removed. Albumin repleted. No evidence of SBP. Continue lactulose for elevated ammonia. No evidence of hepatic encephalopathy at this time. Patient and family updated with the plan and in agreement. All questions answered to satisfaction. Please see residents note for additional details and management. Dr. Vish MD
[2025-02-19 12:00] LABS: Hematocrit 31.8 % (41.0-53.0); Hemoglobin 10.8 g/dL (13.5-16.0)
[2025-02-19] MEDS: OCTREOTIDE ACET INJ 1,000 MCG in SODIUM CHLORIDE 0.9% 100 ML 5.1 MCG IV (12:02)
--- NOTE | 2025-02-19 14:26 | PC.SS ---
Addendum entered by Emily Grimm 02/19/25 14:29: SS has contacted pt registration to update patient's facesheet with his sister's correct phone# [phone] Original Note: SS called patient's , Lakeisha to follow up with SNF choices. states to call patient's sister, Corine at [phone] for SNF choices. SS has left voicemail for Corine with SS contact information.
[2025-02-19 14:54] LABS: Ammonia 100 uMol/L (11-32)
--- NOTE | 2025-02-19 16:12 | PC.SS ---
SS Spoke to and provided her with verbal choices for SNF. SS provided with SNF names and location. is requesting to speak with patient's sister, Corine before deciding.
--- NOTE | 2025-02-19 20:58 | PD.IMPROG ---
Documentation for date of: 02/19/25 Subjective Subjective Interval history: Patient evaluated Hemoglobin hematocrit 10.8 and 31.8 Patient status post by location of the esophageal varices 3 bands were put in Exam Vital Signs Temp Pulse Resp BP Pulse Ox O2 Del Method O2 Flow Rate 97.3 F 65 17 122/79 100 Nasal Cannula 2 02/19/25 20:00 02/19/25 20:56 02/19/25 20:56 02/19/25 20:00 02/19/25 20:00 02/19/25 20:00 02/19/25 20:56 Objective Labs 02/19/25 11:44 02/19/25 04:50 Labs: Laboratory Results - last 24 hr 02/18/25 02/19/25 02/19/25 22:33 04:50 11:44 WBC 3.7 L RBC 2.85 L Hgb 9.6 L 9.5 L 10.8 L Hct 27.6 L 27.6 L 31.8 L MCV 97 MCH 33.3 MCHC 34.4 RDW Std Deviation 56.4 H Plt Count 67 L Neut % (Auto) 62 Lymph % (Auto) 20 [place] % (Auto) 11 Eos % (Auto) 6 Baso % (Auto) 1 Neut # (Auto) 2.3 Lymph # (Auto) 0.7 L [place] # (Auto) 0.4 Eos # (Auto) 0.2 Baso # (Auto) 0.0 Immature Gran # (Auto) 0.02 H Absolute Nucleated RBC 0.00 Immature Gran % 1 H Nucleated RBC % 0 Sodium 146 H Potassium 4.2 D Chloride 111 H Carbon Dioxide 26.4 Anion Gap 9 BUN 14 Creatinine 1.1 Estim Creat Clear Calc 72.1 eGFR > 60 BUN/Creatinine Ratio 13 Glucose 95 Calculated Osmolality 291 Calcium 8.3 Corrected Calcium 9.4 Phosphorus 2.7 Magnesium 1.6 Total Bilirubin 2.6 H AST 55 H ALT 31 Alkaline Phosphatase 108 Ammonia Total Protein 5.4 L Albumin 2.6 L Globulin 2.8 Albumin/Globulin Ratio 0.9 L Misc Test Result Platelets confirmed 02/19/25 14:23 WBC RBC Hgb Hct MCV MCH MCHC RDW Std Deviation Plt Count Neut % (Auto) Lymph % (Auto) [place] % (Auto) Eos % (Auto) Baso % (Auto) Neut # (Auto) Lymph # (Auto) [place] # (Auto) Eos # (Auto) Baso # (Auto) Immature Gran # (Auto) Absolute Nucleated RBC Immature Gran % Nucleated RBC % Sodium Potassium Chloride Carbon Dioxide Anion Gap BUN Creatinine Estim Creat Clear Calc eGFR BUN/Creatinine Ratio Glucose Calculated Osmolality Calcium Corrected Calcium Phosphorus Magnesium Total Bilirubin AST ALT Alkaline Phosphatase Ammonia 100 H* Total Protein Albumin Globulin Albumin/Globulin Ratio Misc Test Result Impressions Impression: Acute upper GI bleed secondary to esophageal varices as well as hypertensive portal gastropathy with mucosal oozing of the blood Continue octreotide Continue IV Protonix Advance diet as tolerated ABG Interpretation ABG results: 02/17/25 15:04 VBG pH 7.38 VBG pCO2 44 VBG pO2 40 VBG Base Excess 0 Assessment & Plan A&P Narrative # Hematemesis in the setting of chronic liver disease secondary to alcohol plan intravenous octreotide 50 mcg IV push and 50 mcg/h infusion serial CBC IV Protonix N.p.o . consent obtained for fiberoptic esophagogastroduodenoscopy with possible therapeutic intervention under intravenous moderate sedation Thank you for the opportunity to participate in the care of this patient Time Spent With Patient Time: Total time spent is greater than 50% in coordination of care (as documented) at patient's floor/unit and/or counseling patient:
[2025-02-20] VITALS (12 sets, daily range): BP systolic 104–160; BP diastolic 66–82; PULSE 55–68; RESP 15–99; TEMP 36.3–36.9; O2SAT 96–99; BMI 28.5
[2025-02-20] MEDS: LACTULOSE SYRUP 20 GM/30 ML UDC PO ×3 (05:18→21:25)
[2025-02-20 05:59] LABS: Basophils # (Auto) 0.0 Thou/mm3 (0.0-0.2); Basophils % (Auto) 1 % (0-2.5); Eosinophils # (Auto) 0.3 Thou/mm3 (0.0-0.5); Eosinophils % (Auto) 7 % (0-10); Hematocrit 28.4 % (41.0-53.0); Hemoglobin 9.8 g/dL (13.5-16.0); Immature Granulocytes Auto 0.01 Thou/mm3 (0.00-0.00); Lymphocytes # (Auto) 0.9 Thou/mm3 (1.0-4.8); Lymphocytes % (Auto) 23 % (10-50); Mean Corpuscular HGB Conc 34.5 g/dl (31.0-37.0); Mean Corpuscular Hemoglobin 33.8 pg (25.0-35.0); Mean Corpuscular Volume 98 fL (80-100); Monocytes # (Auto) 0.5 Thou/mm3 (0.0-0.8); Monocytes % (Auto) 12 % (0-12); Neutrophils # (Auto) 2.2 Thou/mm3 (1.8-7.7); Neutrophils % (Auto) 57 % (37-80); Nucleated Red Blood Cell # 0.00 Thou/mm3 (0.00-0.00); Nucleated Red Blood Cell % 0 /100 WBC (0); Platelet Count 84 Thou/mm3 (140-440); RDW Standard Deviation 55.5 fL (35.1-43.9); Red Blood Count 2.90 Miln/mm3 (4.50-5.90); White Blood Count 3.8 Thou/mm3 (3.8-10.6)
[2025-02-20 06:19] LABS: Alanine Aminotransferase 28 U/L (10-49); Albumin, Serum 2.5 gm/dL (3.4-4.8); Albumin/Globulin Ratio 0.9 (1.2-2.2); Alkaline Phosphatase 104 U/L (46-116); Anion Gap 4 (7-16); Aspartate Amino Transferase 45 U/L (0-34); BUN/Creatinine Ratio 13 Ratio (12-20); Bilirubin,Total 2.4 mg/dL (0.3-1.2); Blood Urea Nitrogen 17 mg/dL (9-23); Calcium 8.3 mg/dL (8.3-10.6); Calcium (Corrected) 9.5 mg/dL (8.5-10.1); Carbon Dioxide 30.7 mMol/L (20.0-31.0); Chloride 112 mMol/L (98-107); Creatinine (Component) 1.3 mg/dL (0.6-1.3); Estimated Creatinine Clearance 61.5 mL/min (>60); Globulin 2.7 gm/dL (2.3-3.5); Glucose 97 mg/dL (74-106); Magnesium 2.0 mg/dL (1.6-2.6); Osmolality,Calculated 293 (275-295); Phosphorous 2.9 mg/dL (2.4-5.1); Potassium 4.5 mMol/L (3.4-5.1); Sodium 147 mMol/L (136-145); Total Protein 5.2 gm/dL (5.7-8.2); eGFR 59 See Note
[2025-02-20 08:01] LABS: Immature Reticulocyte Fraction 15.0 % (2.3-13.4); Reticulocyte % (Auto) 5.2 % (0.5-1.5); Reticulocyte Absolute Auto 150.4 Biln/L (25.0-75.0); Reticulocyte Hgb Content 39.9 pg (28.0-35.0)
[2025-02-20 08:16] LABS: Ferritin 165 ng/mL (10.5-307.3); Iron 59 mcg/dL (65-175); Percent Iron Saturation 39 % (20-55); Total Iron Binding Capacity 148 mcg/dL (250-425); Unsaturated Iron Binding 89 (225-295)
[2025-02-20] MEDS: cefTRIAXone/D5w 1gm IV premix 1 GM/50 ML BAG IV (08:19)
--- NOTE | 2025-02-20 08:39 | PC.NURSE ---
notified DR. Brunner of patient HR of 58, BP 156/78. OK to give meds.
[2025-02-20] MEDS: ALBUMIN HUMAN 25% IVPB 25 GM/100 ML BTL IV (09:19)
[2025-02-20] MEDS: SPIRONOLACTONE 25 MG TABLET 100 MG PO (09:20)
[2025-02-20] MEDS: NIFEdipine XL 30 MG TABCR PO (09:21)
--- NOTE | 2025-02-20 10:47 | CHAP ---
Patient was sleeping. Said a silent prayer by doorway.
--- NOTE | 2025-02-20 10:48 | PD.RESPRO ---
Documentation for date of: 02/20/25 Subjective Subjective Interval history: Had about 7 by bowel movements overnight, initially very bloody with some clots however improving now brown with minimal streaks. Hemoglobin stable at 9.8. Will continue to monitor, will transfuse if drops below 7. No new complaints this morning. Blood pressure was elevated with systolics in 150s-160s, started on nifedipine 30 mg daily, will continue to monitor blood pressure. Heart rate in high 50s to low 60s, will not increase coreg at this time. Will start on rifaximin 550 mg twice daily for persistent high ammonia levels. Creatinine increasing, will increase IV rate of albumin and encouraged more water intake (reports he is only drinking juice mainly). Continue strict I's and O's. Follow-up hepatitis C panel, peritoneal fluid analysis, and echo read. Will continue antibiotics. Anticipate discharge in 1-2 days after IV octreotide drip completed. Exam Vital Signs Temp Pulse Resp BP Pulse Ox O2 Del Method O2 Flow Rate 97.7 F 58 L 17 156/78 H 98 Nasal Cannula 2 02/20/25 08:00 02/20/25 09:21 02/20/25 08:00 02/20/25 09:21 02/20/25 08:00 02/20/25 08:00 02/20/25 08:00 Narrative Exam Physical Exam General: Somewhat drowsy but in no acute distress. Answering questions appropriately, slow to answer. HEENT: Normocephalic, atraumatic, mucous membranes moist. Jaundice, scleral icterus. Heart: Regular rate and rhythm, normal S1 and S2, no murmurs. Lungs: Clear to auscultation with no wheezing or crackles. Abdomen: Soft, slightly distended, nontender, positive bowel sounds. Mild ascites. No guarding or rebound tenderness. Neurologic: Alert and oriented x3, no gross neurological deficit, and patient able to move all 4 extremities. Extremities: +1 pitting edema bilaterally. Skin: Venostasis skin changes on left lower extremity. Objective Labs 02/21/25 05:16 02/21/25 05:16 Labs: Laboratory Results - last 24 hr 02/19/25 02/19/25 02/20/25 11:44 14:23 05:12 WBC 3.8 RBC 2.90 L Hgb 10.8 L 9.8 L Hct 31.8 L 28.4 L MCV 98 MCH 33.8 MCHC 34.5 RDW Std Deviation 55.5 H Plt Count 84 L D Neut % (Auto) 57 Lymph % (Auto) 23 [place] % (Auto) 12 Eos % (Auto) 7 Baso % (Auto) 1 Neut # (Auto) 2.2 Lymph # (Auto) 0.9 L [place] # (Auto) 0.5 Eos # (Auto) 0.3 Baso # (Auto) 0.0 Immature Gran # (Auto) 0.01 H Absolute Nucleated RBC 0.00 Immature Gran % 0 Nucleated RBC % 0 Retic Count (auto) 5.2 H Absolute Retic 150.4 H Immature Retic Fraction 15.0 H Retic Hgb Content CHr 39.9 H Sodium 147 H Potassium 4.5 Chloride 112 H Carbon Dioxide 30.7 Anion Gap 4 L BUN 17 Creatinine 1.3 Estim Creat Clear Calc 61.5 eGFR 59 L BUN/Creatinine Ratio 13 Glucose 97 Calculated Osmolality 293 Calcium 8.3 Corrected Calcium 9.5 Phosphorus 2.9 Magnesium 2.0 Iron 59 L TIBC 148 L Iron Saturation 39 Unsat Iron Binding 89 L Ferritin 165 Total Bilirubin 2.4 H AST 45 H ALT 28 Alkaline Phosphatase 104 Ammonia 100 H* Total Protein 5.2 L Albumin 2.5 L Globulin 2.7 Albumin/Globulin Ratio 0.9 L ABG Interpretation ABG results: 02/17/25 15:04 VBG pH 7.38 VBG pCO2 44 VBG pO2 40 VBG Base Excess 0 Quality Measures Quality Measures VTE prophylaxis Advance care planning discussed with:: patient Assessment & Plan Assessment Current Active Medications: Generic Name Dose Route Start Last Admin Trade Name Freq PRN Reason Stop Dose Admin Acetaminophen 650 mg 02/17/25 20:24 Acetaminophen 325 Mg Tablet PO 03/19/25 20:23 Q6H PRN Fever >100.4 Carvedilol 3.125 mg 02/18/25 21:00 02/20/25 09:19 Carvedilol 3.125 Mg Tablet PO 03/20/25 20:59 3.125 mg BIDWM STEVE Administration Hydromorphone HCl 0.25 mg 02/19/25 07:32 Hydromorphone Inj 2 Mg/Ml Vial IVP 02/24/25 07:31 Q6HR PRN Pain 4-6 Hydromorphone HCl 0.5 mg 02/19/25 07:32 Hydromorphone Inj 2 Mg/Ml Vial IVP 02/24/25 07:31 Q6HR PRN Pain 7-10 Ceftriaxone Sodium/Dextrose 1 gm in 50 mls @ 100 mls/hr 02/18/25 09:00 02/20/25 08:19 Rocephin/D5w 1gm Iv Premix IV 02/25/25 08:59 100 mls/hr QDAY STEVE Administration Octreotide Acetate 1,000 mcg/ 102 mls @ 5.1 mls/hr 02/18/25 16:15 02/19/25 12:02 Sodium Chloride IV 02/22/25 20:11 50 mcg/hr .Q20H STEVE 5.1 mls/hr Protocol Administration 50 MCG/HR Azithromycin 500 mg/ Sodium 250 mls @ 250 mls/hr 02/18/25 09:39 02/19/25 09:12 Chloride IV 02/21/25 09:38 250 mls/hr QDAY STEVE Administration Promethazine HCl 6.25 mg/ 50.25 mls @ 100.5 mls/hr 02/19/25 14:00 Sodium Chloride IV 03/21/25 13:59 Q4HR PRN NAUSEA Protocol Albumin Human 25 gm in 100 mls @ 100 mls/hr 02/20/25 07:23 02/20/25 09:19 Albuminar-25 Ivpb IV 02/23/25 07:22 100 mls/hr QDAY STEVE Administration Lactulose 20 gm 02/17/25 22:00 02/20/25 05:18 Lactulose Syrup 20 Gm/30 Ml Udc PO 03/19/25 21:59 20 gm TID STEVE Administration Protocol Nifedipine 30 mg 02/20/25 09:00 02/20/25 09:21 Nifedipine Xl 30 Mg Tabcr PO 03/22/25 08:59 30 mg QDAY STEVE Administration Ondansetron HCl 4 mg 02/17/25 20:07 02/18/25 05:29 Ondansetron Inj 2 Mg/Ml Inj 2 Ml IVP 03/19/25 20:06 4 mg Q6HR PRN Administration NAUSEA OR VOMITING Protocol Pantoprazole Sodium 40 mg 02/19/25 09:00 02/20/25 09:21 Pantoprazole Inj 40 Mg Vial IVP 03/21/25 08:59 40 mg QDAY STEVE Administration Rifaximin 550 mg 02/20/25 09:00 02/20/25 09:55 Rifaximin 550 Mg Tablet PO 02/27/25 08:59 550 mg BID STEVE Administration Spironolactone 100 mg 02/20/25 09:00 02/20/25 09:20 Spironolactone 25 Mg Tablet PO 03/22/25 08:59 100 mg DAILY STEVE Administration Plan Patient is a 69-year-old male with PMH of cirrhosis secondary to alcohol use, hepatitis C (diagnosed 1973), methamphetamine use, chronic smoker and abdominal hernia who presented on 02/17/25 for shortness of breath, admitted for decompensated liver cirrhosis with hematemesis secondary to grade II esophageal varices. #Hematemesis #Grade II esophageal varices #S/p banding (02/18/25) #Hematochezia Varices observed on previous CT A/P 09/2024, reconfirmed on CT A/P 02/18/25. Consulted GI Dr. Sinclair on admission. Found grade II esophageal varicies on EGD, banded. New onset hematochezia 02/19, likely secondary to severe upper GI bleed, residual after banding. Hgb stable at 9-10. Plan: - Octreotide 50 mcg/hr for 5 days (02/18- - IV CFX 1g (02/17- - Spiranolactone to 100 mg daily - Coreg 3.225 BID - CTM CBC - Transfuse if Hgb <7 - Hold anticoagulation and chemical DVT prophylaxis - Consulted GI Dr. Sinclair as above, appreciate recommendations #Acute on chronic decompensated liver cirrhosis 07/06 #Hx of alcohol use #Hepatitis C (diagnosed 1973), untreated #Ascites #S/p paracentesis (02/17/25) #Lactic acidosis, resolved #Hyperammonemia #Thrombocytopenia Has history of decompensated liver cirrhosis, secondary to untreated hepatitis C and/or chronic alcohol use. Drinking since 11 years old, last drink 1 month ago. Has history of hepatitis C, diagnosed in 1973, denies treatment. On exam, patient has prominent ascites, no encephalopathy, at baseline mentation. Elevated lactic acid 3.0 and ammonia 110, likely secondary to severe decompensation. Platelets 89,000 > 64,000. Utox negative for alcohol. Hep panel showed hep C Ab. CT C/A/P 02/18 shows cirrhosis with liver lobulated contour, no focal liver lesions, moderate ascites, prominent splenomegaly, esophageal varices. S/p paracentesis in ED, removed 9L, repleted with IV albumin. Scores: SAAG>1.1 - portal hypertension Child-Morrison Score 10, CLASS C- End-stage cirrhosis with very poor prognosis. MELD-Na 13, 6.0% estimated 3 month mortality Light's criteria - serum protein 0.6, pleural protein 2.0, serum LDH 239, pleural LDH 48; transudative Plan: - IV albumin - Lactulose 20 mg TID - Start rifaximin 550 BID for persistent high ammonia levels - Follow up hep C titer - GI Dr. Sinclair consulted, recommendations appreciated: keep NPO, continue octreotide for another 5 days, continue IV protonix, promethazine 6.25mg IV q4hr - Strict ins and out - Zofran 4 mg prn - Outpatient follow-up for hepatitis vaccine series - Counseled on alcohol cessation #Dyspnea #Left base pneumonia #Alcoholic cardiomyopathy? #COPD? Dyspnea on admission, became tachypnic and tachycardic, saturated as low as 93%. Was started on 6 L nasal cannula. Saturating well on 2L s/p paracentesis. CXR showed left base pneumonia with left pleural fluid. Negative COVID-19, influenza A and B. Procal 0.23. No leukocytosis. Given alcohol use history and substance abuse, possible aspiration pneumonia. 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 No prior echo on record. Likely history of COPD given extensive tobacco use in the past. Not on any medications nor uses oxygen at home. Plan: - IV Ceftriaxone 1gm as above - Azithromycin (02/18- - Supplemental O2, titrate as tolerated to maintain SpO2 >92%, wean as tolerated - Blood cultures - Follow up echo read #Hx of HTN Patient has a history of hypertension for which he is noncompliant with his home regimen. - Spironolactone and Coreg as above - Start nifedipine 30 mg daily - Pending official med rec #Methamphetamine use #Tobacco use Utox positive for methamphetamine. Smoked 1 ppd for 40 years since young age, quit. - Monitor for withdrawals symptoms - Counseled on cessation - Social service referral Health Maintenance Disposition: tele for decompensated liver cirrhosis DVT prophylaxis: SCDs GI prophylaxis: Protonix Diet: Clear liquid, advance to low sodium as tolerated CODE STATUS: Full Patient plan of care was discussed with the resident, Dr. Villaseñor, and attending physician, Dr. Wahl. Paulette Brunner, PGY-1 Attending Provider Attestation/Addendum I have examined the patient, reviewed labs and imaging findings, discussed the case with the resident(s), and reviewed entered orders. I agree with the plan of care as outlined in this note, with these additional summaries/recommendations: Patient seen at bedside. No acute overnight events. Today patient reports improvement in bloody bowel movements and has only noticed blood streaks in his stool this morning. Patient is s/p EGD which revealed grade 2 esophageal varices which were banded and fresh blood seen throughout the stomach with hypertensive portal gastropathy. Bright red bloodly bowel movements most likely secondary to esophageal varcies although we will follow-up with gastroenterology. Continue clear liquid diet., continue octreotide x 5 days, continue IV Protonix, continue promethazine, and continue to trend H&H. Patient to complete octreotide drip this evening 02/20. Continue to hold all chemical anticoagulation. Patient also diagnosed with decompensated cirrhosis. Etiology for cirrhosis hepatitis C versus previous alcohol use. He reports he received treatment for hepatitis C in the 70s or 80s. Viral load pending. Patient was counseled to continue to avoid alcohol use. Continue fluid restriction and low-salt diet. Continue diuresis. Outpatient follow-up for vaccine series. Patient is status post paracentesis with approximately 9 L removed. Albumin repleted. No evidence of SBP although Gram stain and culture still pending at this time and we will await results before patient can be safely discharged. Continue lactulose for elevated ammonia. No evidence of hepatic encephalopathy at this time. Patient and family updated with the plan and in agreement. All questions answered to satisfaction. Please see residents note for additional details and management. Dr. Vish MD
[2025-02-20] MEDS: AZITHROMYCIN INJ 500 MG in SODIUM CHLORIDE 0.9% 250 ML 250 ML 250 MG IV (11:23)
[2025-02-20] MEDS: OCTREOTIDE ACET INJ 1,000 MCG in SODIUM CHLORIDE 0.9% 100 ML 5.1 MCG IV (11:36)
[2025-02-20] MEDS: HYDROmorphone INJ 2 MG/ML VIAL 0.5 MG IVP ×2 (13:28→20:41)
--- NOTE | 2025-02-20 19:53 | ESPR_ITS ---
Documentation for date of: 02/20/25 Subjective Subjective Interval history: Patient evaluated Hemoglobin hematocrit 9.8 and 28.7 somewhat downtrending Status post esophageal variceal band ligation and hypertensive portal gastropathy with mucosal oozing of blood on octreotide Exam Vital Signs Temp Pulse Resp BP Pulse Ox O2 Del Method O2 Flow Rate 97.5 F 61 20 127/72 96 Nasal Cannula 2 02/20/25 16:00 02/20/25 18:25 02/20/25 16:00 02/20/25 18:25 02/20/25 16:00 02/20/25 16:00 02/20/25 16:00 Objective Labs 02/20/25 05:12 02/20/25 05:12 Labs: Laboratory Results - last 24 hr 02/20/25 05:12 WBC 3.8 RBC 2.90 L Hgb 9.8 L Hct 28.4 L MCV 98 MCH 33.8 MCHC 34.5 RDW Std Deviation 55.5 H Plt Count 84 L D Neut % (Auto) 57 Lymph % (Auto) 23 [place] % (Auto) 12 Eos % (Auto) 7 Baso % (Auto) 1 Neut # (Auto) 2.2 Lymph # (Auto) 0.9 L [place] # (Auto) 0.5 Eos # (Auto) 0.3 Baso # (Auto) 0.0 Immature Gran # (Auto) 0.01 H Absolute Nucleated RBC 0.00 Immature Gran % 0 Nucleated RBC % 0 Retic Count (auto) 5.2 H Absolute Retic 150.4 H Immature Retic Fraction 15.0 H Retic Hgb Content CHr 39.9 H Sodium 147 H Potassium 4.5 Chloride 112 H Carbon Dioxide 30.7 Anion Gap 4 L BUN 17 Creatinine 1.3 Estim Creat Clear Calc 61.5 eGFR 59 L BUN/Creatinine Ratio 13 Glucose 97 Calculated Osmolality 293 Calcium 8.3 Corrected Calcium 9.5 Phosphorus 2.9 Magnesium 2.0 Iron 59 L TIBC 148 L Iron Saturation 39 Unsat Iron Binding 89 L Ferritin 165 Total Bilirubin 2.4 H AST 45 H ALT 28 Alkaline Phosphatase 104 Total Protein 5.2 L Albumin 2.5 L Globulin 2.7 Albumin/Globulin Ratio 0.9 L Impressions Impression: Upper GI bleeding secondary to esophageal variceal bleeding as well as hypertensive portal gastropathy Continue octreotide infusion and follow the CBC ABG Interpretation ABG results: 02/17/25 15:04 VBG pH 7.38 VBG pCO2 44 VBG pO2 40 VBG Base Excess 0 Assessment & Plan A&P Narrative # Hematemesis in the setting of chronic liver disease secondary to alcohol plan intravenous octreotide 50 mcg IV push and 50 mcg/h infusion serial CBC IV Protonix N.p.o . consent obtained for fiberoptic esophagogastroduodenoscopy with possible therapeutic intervention under intravenous moderate sedation Thank you for the opportunity to participate in the care of this patient Time Spent With Patient Time: Total time spent is greater than 50% in coordination of care (as documented) at patient's floor/unit and/or counseling patient:
[2025-02-21] VITALS (10 sets, daily range): BP systolic 117–134; BP diastolic 63–71; PULSE 54–73; RESP 12–96; TEMP 36.1–36.8; O2SAT 91–96; BMI 28.0
[2025-02-21] MEDS: OCTREOTIDE ACET INJ 1,000 MCG in SODIUM CHLORIDE 0.9% 100 ML 5.1 MCG IV (04:16)
[2025-02-21] MEDS: LACTULOSE SYRUP 20 GM/30 ML UDC PO ×2 (05:11→15:11)
[2025-02-21 05:52] LABS: Basophils # (Auto) 0.0 Thou/mm3 (0.0-0.2); Basophils % (Auto) 1 % (0-2.5); Eosinophils # (Auto) 0.4 Thou/mm3 (0.0-0.5); Eosinophils % (Auto) 8 % (0-10); Hematocrit 29.3 % (41.0-53.0); Hemoglobin 10.3 g/dL (13.5-16.0); Immature Granulocytes Auto 0.03 Thou/mm3 (0.00-0.00); Lymphocytes # (Auto) 1.1 Thou/mm3 (1.0-4.8); Lymphocytes % (Auto) 22 % (10-50); Mean Corpuscular HGB Conc 35.2 g/dl (31.0-37.0); Mean Corpuscular Hemoglobin 34.3 pg (25.0-35.0); Mean Corpuscular Volume 98 fL (80-100); Monocytes # (Auto) 0.5 Thou/mm3 (0.0-0.8); Monocytes % (Auto) 10 % (0-12); Neutrophils # (Auto) 3.0 Thou/mm3 (1.8-7.7); Neutrophils % (Auto) 59 % (37-80); Nucleated Red Blood Cell # 0.00 Thou/mm3 (0.00-0.00); Nucleated Red Blood Cell % 0 /100 WBC (0); Platelet Count 113 Thou/mm3 (140-440); RDW Standard Deviation 56.4 fL (35.1-43.9); Red Blood Count 3.00 Miln/mm3 (4.50-5.90); White Blood Count 5.1 Thou/mm3 (3.8-10.6)
[2025-02-21 06:19] LABS: Alanine Aminotransferase 27 U/L (10-49); Albumin, Serum 2.8 gm/dL (3.4-4.8); Albumin/Globulin Ratio 1.1 (1.2-2.2); Alkaline Phosphatase 108 U/L (46-116); Anion Gap 4 (7-16); Aspartate Amino Transferase 44 U/L (0-34); BUN/Creatinine Ratio 13 Ratio (12-20); Bilirubin,Total 2.8 mg/dL (0.3-1.2); Blood Urea Nitrogen 15 mg/dL (9-23); Calcium 8.7 mg/dL (8.3-10.6); Calcium (Corrected) 9.7 mg/dL (8.5-10.1); Carbon Dioxide 30.1 mMol/L (20.0-31.0); Chloride 109 mMol/L (98-107); Creatinine (Component) 1.2 mg/dL (0.6-1.3); Estimated Creatinine Clearance 65.5 mL/min (>60); Globulin 2.6 gm/dL (2.3-3.5); Glucose 103 mg/dL (74-106); Magnesium 1.8 mg/dL (1.6-2.6); Osmolality,Calculated 285 (275-295); Phosphorous 3.3 mg/dL (2.4-5.1); Potassium 4.7 mMol/L (3.4-5.1); Sodium 143 mMol/L (136-145); Total Protein 5.4 gm/dL (5.7-8.2); eGFR > 60 See Note
--- NOTE | 2025-02-21 07:15 | PD.RESPRO ---
Documentation for date of: 02/21/25 Subjective Subjective Interval history: No acute events overnight. Complaining of difficulty sleeping, will schedule melatonin nightly. Completed 5 day course of octreotide today (02/17-02/21). Hemoglobin stable, denies any more bloody bowel movements. No new complaints. Blood pressure is controlled on currently regimen of Coreg, nifedipine, and spiranolactone. Intend to continue outpatient. Pending hep C titers and viral load, recommend outpatient follow up with GI specialist. Pending ascitic fluid gram stain and culture. Blood cultures negative. Completed 3 day course of Azithromycin for left lower pneumonia. Will continue IV ceftriaxone for SBP prophylaxis (started 02/17). Advance diet as tolerated. Creatinine improved, will continue IV albumin, continued to encourage proper oral rehydration. Per PT recommendation, patient will be discharged to SNF for further physical therapy. Anticipate discharge Sunday to [facility]. Exam Vital Signs Temp Pulse Resp BP Pulse Ox O2 Del Method O2 Flow Rate 97.5 F 61 12 127/66 92 L Nasal Cannula 2 02/21/25 04:00 02/21/25 04:00 02/21/25 04:00 02/21/25 04:00 02/21/25 04:00 02/21/25 04:00 02/21/25 04:00 Narrative Exam Physical Exam General: Awake and in no acute distress. Answering questions appropriately. Conversational. HEENT: Normocephalic, atraumatic, mucous membranes moist. Jaundice. Heart: Regular rate and rhythm, normal S1 and S2, no murmurs. Lungs: Clear to auscultation with no wheezing or crackles. Abdomen: Soft, slightly distended, nontender, positive bowel sounds. Mild ascites. Umbilical hernia. No guarding or rebound tenderness. Neurologic: Alert and oriented x3, no gross neurological deficit, and patient able to move all 4 extremities. Extremities: +1 pitting edema bilaterally. Skin: Venostasis skin changes on left lower extremity. Objective Labs 02/21/25 05:16 02/21/25 05:16 Labs: Laboratory Results - last 24 hr 02/17/25 02/20/25 02/21/25 20:47 05:12 05:16 WBC 5.1 RBC 3.00 L Hgb 10.3 L Hct 29.3 L MCV 98 MCH 34.3 MCHC 35.2 RDW Std Deviation 56.4 H Plt Count 113 L D Neut % (Auto) 59 Lymph % (Auto) 22 [place] % (Auto) 10 Eos % (Auto) 8 Baso % (Auto) 1 Neut # (Auto) 3.0 Lymph # (Auto) 1.1 [place] # (Auto) 0.5 Eos # (Auto) 0.4 Baso # (Auto) 0.0 Immature Gran # (Auto) 0.03 H Absolute Nucleated RBC 0.00 Immature Gran % 1 H Nucleated RBC % 0 Retic Count (auto) 5.2 H Absolute Retic 150.4 H Immature Retic Fraction 15.0 H Retic Hgb Content CHr 39.9 H Sodium 143 Potassium 4.7 Chloride 109 H Carbon Dioxide 30.1 Anion Gap 4 L BUN 15 Creatinine 1.2 Estim Creat Clear Calc 65.5 eGFR > 60 BUN/Creatinine Ratio 13 Glucose 103 Calculated Osmolality 285 Calcium 8.7 Corrected Calcium 9.7 Phosphorus 3.3 Magnesium 1.8 Iron 59 L TIBC 148 L Iron Saturation 39 Unsat Iron Binding 89 L Ferritin 165 Total Bilirubin 2.8 H AST 44 H ALT 27 Alkaline Phosphatase 108 Total Protein 5.4 L Albumin 2.8 L Globulin 2.6 Albumin/Globulin Ratio 1.1 L Crossmatch See Detail ABG Interpretation ABG results: 02/17/25 15:04 VBG pH 7.38 VBG pCO2 44 VBG pO2 40 VBG Base Excess 0 Quality Measures Quality Measures VTE prophylaxis Advance care planning discussed with:: patient Assessment & Plan Assessment Current Active Medications: Generic Name Dose Route Start Last Admin Trade Name Freq PRN Reason Stop Dose Admin Acetaminophen 650 mg 02/17/25 20:24 Acetaminophen 325 Mg Tablet PO 03/19/25 20:23 Q6H PRN Fever >100.4 Carvedilol 3.125 mg 02/18/25 21:00 02/20/25 18:25 Carvedilol 3.125 Mg Tablet PO 03/20/25 20:59 3.125 mg BIDWM STEVE Administration Hydromorphone HCl 0.25 mg 02/19/25 07:32 Hydromorphone Inj 2 Mg/Ml Vial IVP 02/24/25 07:31 Q6HR PRN Pain 4-6 Hydromorphone HCl 0.5 mg 02/19/25 07:32 02/20/25 20:41 Hydromorphone Inj 2 Mg/Ml Vial IVP 02/24/25 07:31 0.5 mg Q6HR PRN Administration Pain 7-10 Ceftriaxone Sodium/Dextrose 1 gm in 50 mls @ 100 mls/hr 02/18/25 09:00 02/20/25 08:19 Rocephin/D5w 1gm Iv Premix IV 02/25/25 08:59 100 mls/hr QDAY STEVE Administration Octreotide Acetate 1,000 mcg/ 102 mls @ 5.1 mls/hr 02/18/25 16:15 02/21/25 04:16 Sodium Chloride IV 02/22/25 20:11 50 mcg/hr .Q20H STEVE 5.1 mls/hr Protocol Administration 50 MCG/HR Azithromycin 500 mg/ Sodium 250 mls @ 250 mls/hr 02/18/25 09:39 02/20/25 11:23 Chloride IV 02/21/25 09:38 250 mls/hr QDAY STEVE Administration Promethazine HCl 6.25 mg/ 50.25 mls @ 100.5 mls/hr 02/19/25 14:00 Sodium Chloride IV 03/21/25 13:59 Q4HR PRN NAUSEA Protocol Albumin Human 25 gm in 100 mls @ 100 mls/hr 02/20/25 07:23 02/20/25 09:19 Albuminar-25 Ivpb IV 02/23/25 07:22 100 mls/hr QDAY STEVE Administration Lactulose 20 gm 02/17/25 22:00 02/21/25 05:11 Lactulose Syrup 20 Gm/30 Ml Udc PO 03/19/25 21:59 20 gm TID STEVE Administration Protocol Nifedipine 30 mg 02/20/25 09:00 02/20/25 09:21 Nifedipine Xl 30 Mg Tabcr PO 03/22/25 08:59 30 mg QDAY STEVE Administration Ondansetron HCl 4 mg 02/17/25 20:07 02/18/25 05:29 Ondansetron Inj 2 Mg/Ml Inj 2 Ml IVP 03/19/25 20:06 4 mg Q6HR PRN Administration NAUSEA OR VOMITING Protocol Pantoprazole Sodium 40 mg 02/19/25 09:00 02/20/25 09:21 Pantoprazole Inj 40 Mg Vial IVP 03/21/25 08:59 40 mg QDAY STEVE Administration Rifaximin 550 mg 02/20/25 09:00 02/20/25 20:41 Rifaximin 550 Mg Tablet PO 02/27/25 08:59 550 mg BID STEVE Administration Spironolactone 100 mg 02/20/25 09:00 02/20/25 09:20 Spironolactone 25 Mg Tablet PO 03/22/25 08:59 100 mg DAILY STEVE Administration Plan Patient is a 69-year-old male with PMH of cirrhosis secondary to alcohol use, hepatitis C (diagnosed 1973), methamphetamine use, chronic smoker and abdominal hernia who presented on 02/17/25 for shortness of breath, admitted for decompensated liver cirrhosis with hematemesis secondary to grade II esophageal varices. #Hematemesis #Grade II esophageal varices #S/p banding (02/18/25) #Hematochezia Varices observed on previous CT A/P 09/2024, reconfirmed on CT A/P 02/18/25. Consulted GI Dr. Sinclair on admission. Found grade II esophageal varicies on EGD, banded. New onset hematochezia 02/19, likely secondary to severe upper GI bleed, residual after banding. Hgb stable at 9-10. S/p octreotide and CFX in ED on 02/17 Plan: - Octreotide 50 mcg/hr for 5 days (02/17-02/21) - IV CFX 1g (02/17-02/21) - Spiranolactone to 100 mg daily - Coreg 3.225 BID - CTM CBC - Transfuse if Hgb <7 - Hold anticoagulation and chemical DVT prophylaxis - Consulted GI Dr. Sinclair as above, appreciate recommendations - Advance diet as tolerated #Acute on chronic decompensated liver cirrhosis / #Hx of alcohol use #Hepatitis C (diagnosed 1973), untreated #Ascites #S/p paracentesis (02/17/25) #Lactic acidosis, resolved #Hyperammonemia #Thrombocytopenia Has history of decompensated liver cirrhosis, secondary to untreated hepatitis C and/or chronic alcohol use. Drinking since 11 years old, last drink 1 month ago. Has history of hepatitis C, diagnosed in 1973, denies treatment. On exam, patient has prominent ascites, no encephalopathy, at baseline mentation. Elevated lactic acid 3.0 and ammonia 110, likely secondary to severe decompensation. Platelets 89,000 > 64,000. Utox negative for alcohol. Hep panel showed hep C Ab. CT C/A/P 02/18 shows cirrhosis with liver lobulated contour, no focal liver lesions, moderate ascites, prominent splenomegaly, esophageal varices. S/p paracentesis in ED, removed 9L, repleted with IV albumin. Scores: SAAG>1.1 - portal hypertension Child-Morriosn Score 10, CLASS C- End-stage cirrhosis with very poor prognosis. MELD-Na 13, 6.0% estimated 3 month mortality Light's criteria - serum protein 0.6, pleural protein 2.0, serum LDH 239, pleural LDH 48; transudative Plan: - IV albumin - Lactulose 20 mg TID - Rifaximin 550 BID for persistent high ammonia levels - Follow up hep C titer - GI Dr. Sinclair consulted, recommendations appreciated - Strict ins and out - Zofran 4 mg prn - Outpatient follow-up for hepatitis vaccine series - Counseled on alcohol cessation #Dyspnea #Left base pneumonia #COPD? Dyspnea on admission, became tachypnic and tachycardic, saturated as low as 93%. Was started on 6 L nasal cannula. Saturating well on 2L s/p paracentesis. CXR showed left base pneumonia with left pleural fluid. Negative COVID-19, influenza A and B. Procal 0.23. No leukocytosis. Given alcohol use history and substance abuse, possible aspiration pneumonia. Likely history of COPD given extensive tobacco use in the past. Not on any medications nor uses oxygen at home. Blood cultures negative. Plan: - IV Ceftriaxone 1gm as above - Azithromycin (02/18-02/21) - Supplemental O2, titrate as tolerated to maintain SpO2 >92%, wean as tolerated #HFpEF (EF 55-60%) (02/17/25) #Grade I diastolic dysfunction Presented with dyspnea on admission. Also reports orthopnea and has pitting edema on exam. 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 No prior echo on record. Echo 02/17 showed EF 55-60% with grade I diastolic dysfunction, mild LVH. Severely dilated LA. Mild to moderate pulmonary HTN. Moderately dilated RA. Mitral annular calcification. Aortic valve sclerosis without stenosis. Mild TR and MR. Plan: - Continue Coreg and spironolactone as above - Consider starting on PIERRE/ARB when creatinine at baseline - Recommend outpatient follow up with telecommunications facility examiner #Hx of HTN Patient has a history of hypertension for which he is noncompliant with his home regimen. - Spironolactone and Coreg as above - Nifedipine 30 mg daily #Methamphetamine use #Tobacco use Utox positive for methamphetamine. Smoked 1 ppd for 40 years since young age, quit. - Monitor for withdrawals symptoms - Counseled on cessation - Social service referral Health Maintenance Disposition: tele for decompensated liver cirrhosis DVT prophylaxis: SCDs GI prophylaxis: Protonix Diet: Clear liquid, advance to low sodium as tolerated CODE STATUS: Full Patient plan of care was discussed with the attending physician, Dr. Wahl. Paulette Brunner, PGY-1 Attending Provider Attestation/Addendum I have examined the patient, reviewed labs and imaging findings, discussed the case with the resident(s), and reviewed entered orders. I agree with the plan of care as outlined in this note, with these additional summaries/recommendations: Patient seen at bedside. No acute overnight events. Patient is s/p EGD which revealed grade 2 esophageal varices which were banded and fresh blood seen throughout the stomach with hypertensive portal gastropathy. Continue octreotide x 5 days, continue IV Protonix, continue promethazine, and continue to trend H&H. Continue to hold all chemical anticoagulation. Patient also diagnosed with decompensated cirrhosis. Etiology for cirrhosis hepatitis C versus previous alcohol use. He reports he received treatment for hepatitis C in the 70s or 80s. Viral load pending. Patient was counseled to continue to avoid alcohol use. Continue fluid restriction and low-salt diet. Continue diuresis. Outpatient follow-up for vaccine series. Patient is status post paracentesis with approximately 9 L removed. Albumin repleted. No evidence of SBP although Gram stain and culture still pending at this time and we will await results before patient can be safely discharged. Continue lactulose for elevated ammonia. No evidence of hepatic encephalopathy at this time. Patient and family updated with the plan and in agreement. All questions answered to satisfaction. Please see residents note for additional details and management. Dr. Vish MD
[2025-02-21] MEDS: NIFEdipine XL 30 MG TABCR PO (08:54)
[2025-02-21] MEDS: SPIRONOLACTONE 25 MG TABLET 100 MG PO (08:54)
[2025-02-21] MEDS: cefTRIAXone/D5w 1gm IV premix 1 GM/50 ML BAG IV (08:55)
[2025-02-21] MEDS: AZITHROMYCIN INJ 500 MG in SODIUM CHLORIDE 0.9% 250 ML 250 ML 250 MG IV (10:20)
[2025-02-21] MEDS: ALBUMIN HUMAN 25% IVPB 25 GM/100 ML BTL IV (10:48)
[2025-02-21] MEDS: ACETAMINOPHEN 325 MG TABLET 650 MG PO (12:01)
[2025-02-21] MEDS: ACETAMIN/CAFF/BUTAL (Fioricet) 1 TAB PO (15:11)
--- NOTE | 2025-02-21 15:17 | PD.IMPROG ---
Documentation for date of: 02/21/25 Subjective Subjective Interval history: Patient evaluated case discussed with internal medicine team From a GI viewpoint patient can be discharged we can finish off the octreotide today Exam Vital Signs Temp Pulse Resp BP Pulse Ox O2 Del Method O2 Flow Rate 97.5 F 58 L 24 H 117/71 96 Nasal Cannula 2 02/21/25 12:00 02/21/25 12:00 02/21/25 12:00 02/21/25 12:00 02/21/25 12:00 02/21/25 12:00 02/21/25 12:00 Objective Labs 02/21/25 05:16 02/21/25 05:16 Labs: Laboratory Results - last 24 hr 02/17/25 02/21/25 20:47 05:16 WBC 5.1 RBC 3.00 L Hgb 10.3 L Hct 29.3 L MCV 98 MCH 34.3 MCHC 35.2 RDW Std Deviation 56.4 H Plt Count 113 L D Neut % (Auto) 59 Lymph % (Auto) 22 [place] % (Auto) 10 Eos % (Auto) 8 Baso % (Auto) 1 Neut # (Auto) 3.0 Lymph # (Auto) 1.1 [place] # (Auto) 0.5 Eos # (Auto) 0.4 Baso # (Auto) 0.0 Immature Gran # (Auto) 0.03 H Absolute Nucleated RBC 0.00 Immature Gran % 1 H Nucleated RBC % 0 Sodium 143 Potassium 4.7 Chloride 109 H Carbon Dioxide 30.1 Anion Gap 4 L BUN 15 Creatinine 1.2 Estim Creat Clear Calc 65.5 eGFR > 60 BUN/Creatinine Ratio 13 Glucose 103 Calculated Osmolality 285 Calcium 8.7 Corrected Calcium 9.7 Phosphorus 3.3 Magnesium 1.8 Total Bilirubin 2.8 H AST 44 H ALT 27 Alkaline Phosphatase 108 Total Protein 5.4 L Albumin 2.8 L Globulin 2.6 Albumin/Globulin Ratio 1.1 L Crossmatch See Detail Impressions Impression: Status post band ligation of the esophageal varices Advanced hypertensive portal gastropathy with mucosal oozing of blood infusion of octreotide for 5 days has been helpful Continue current management From a GI viewpoint patient can be discharged home ABG Interpretation ABG results: 02/17/25 15:04 VBG pH 7.38 VBG pCO2 44 VBG pO2 40 VBG Base Excess 0 Assessment & Plan A&P Narrative # Hematemesis in the setting of chronic liver disease secondary to alcohol plan intravenous octreotide 50 mcg IV push and 50 mcg/h infusion serial CBC IV Protonix N.p.o . consent obtained for fiberoptic esophagogastroduodenoscopy with possible therapeutic intervention under intravenous moderate sedation Thank you for the opportunity to participate in the care of this patient Time Spent With Patient Time: Total time spent is greater than 50% in coordination of care (as documented) at patient's floor/unit and/or counseling patient:
[2025-02-21] MEDS: MELATONIN 3 MG TABLET PO (21:21)
[2025-02-21] MEDS: HYDROmorphone INJ 2 MG/ML VIAL 0.25 MG IVP (22:19)
[2025-02-21 23:36] LABS: HCV RNA, PCR (Source Pt) 1020000 IU/mL
[2025-02-22] VITALS (13 sets, daily range): BP systolic 122–148; BP diastolic 62–77; PULSE 57–76; RESP 18–29; TEMP 36.2–36.7; O2SAT 95–99; BMI 28.5
[2025-02-22] MEDS: LACTULOSE SYRUP 20 GM/30 ML UDC PO ×3 (05:12→21:02)
[2025-02-22] MEDS: ALBUMIN HUMAN 25% IVPB 25 GM/100 ML BTL IV (08:48)
[2025-02-22] MEDS: SPIRONOLACTONE 25 MG TABLET 100 MG PO (08:48)
[2025-02-22] MEDS: NIFEdipine XL 30 MG TABCR PO (08:49)
[2025-02-22 09:17] LABS: Basophils # (Auto) 0.0 Thou/mm3 (0.0-0.2); Basophils % (Auto) 1 % (0-2.5); Eosinophils # (Auto) 0.3 Thou/mm3 (0.0-0.5); Eosinophils % (Auto) 10 % (0-10); Hematocrit 27.2 % (41.0-53.0); Hemoglobin 9.4 g/dL (13.5-16.0); Immature Granulocytes Auto 0.02 Thou/mm3 (0.00-0.00); Lymphocytes # (Auto) 0.8 Thou/mm3 (1.0-4.8); Lymphocytes % (Auto) 22 % (10-50); Mean Corpuscular HGB Conc 34.6 g/dl (31.0-37.0); Mean Corpuscular Hemoglobin 33.5 pg (25.0-35.0); Mean Corpuscular Volume 97 fL (80-100); Monocytes # (Auto) 0.3 Thou/mm3 (0.0-0.8); Monocytes % (Auto) 9 % (0-12); Neutrophils # (Auto) 2.0 Thou/mm3 (1.8-7.7); Neutrophils % (Auto) 58 % (37-80); Nucleated Red Blood Cell # 0.00 Thou/mm3 (0.00-0.00); Nucleated Red Blood Cell % 0 /100 WBC (0); Platelet Count 83 Thou/mm3 (140-440); RDW Standard Deviation 56.3 fL (35.1-43.9); Red Blood Count 2.81 Miln/mm3 (4.50-5.90); White Blood Count 3.4 Thou/mm3 (3.8-10.6)
[2025-02-22 09:46] LABS: Alanine Aminotransferase 25 U/L (10-49); Albumin, Serum 2.6 gm/dL (3.4-4.8); Albumin/Globulin Ratio 1.0 (1.2-2.2); Alkaline Phosphatase 94 U/L (46-116); Anion Gap 6 (7-16); Aspartate Amino Transferase 44 U/L (0-34); BUN/Creatinine Ratio 13 Ratio (12-20); Bilirubin,Total 2.3 mg/dL (0.3-1.2); Blood Urea Nitrogen 15 mg/dL (9-23); Calcium 7.9 mg/dL (8.3-10.6); Calcium (Corrected) 9.0 mg/dL (8.5-10.1); Carbon Dioxide 27.2 mMol/L (20.0-31.0); Chloride 108 mMol/L (98-107); Creatinine (Component) 1.2 mg/dL (0.6-1.3); Estimated Creatinine Clearance 65.5 mL/min (>60); Globulin 2.6 gm/dL (2.3-3.5); Glucose 253 mg/dL (74-106); Osmolality,Calculated 291 (275-295); Potassium 4.0 mMol/L (3.4-5.1); Sodium 141 mMol/L (136-145); Total Protein 5.2 gm/dL (5.7-8.2); eGFR > 60 See Note
[2025-02-22] MEDS: cefTRIAXone/D5w 1gm IV premix 1 GM/50 ML BAG IV (10:36)
--- NOTE | 2025-02-22 11:16 | PC.SS ---
Dr. Villaseñor informed SS patient can discharge today, SS to confirm with SNF [facility]. [facility] stated patient can be accepted 02/23/25 when a room becomes available.
--- NOTE | 2025-02-22 13:28 | PD.RESPRO ---
Documentation for date of: 02/22/25 Subjective Subjective Interval history: Patient is seen and examined at bedside No acute overnight events. Noted to have adequate urine output and made 5 bowel movements yesterday. Denies any other complaints and reported that he did not notice any blood in the bowel movements yesterday. Vitals are stable. On physical examination, noted to have pansystolic murmur heard in tricuspid, mitral, aortic area, umbilical hernia and noted mild abdominal distention with peripheral vascular changes Labs done today significant for WBC 3.4, hemoglobin 9.4, platelets 83 Will continue ceftriaxone till 02/23/2025 to complete 7-day course for prophylaxis of SBP in the setting of variceal bleed Patient completed 5 days octreotide infusion. Currently on lactulose and rifaximin for the treatment of hepatic encephalopathy Pending SNF placement, likely tomorrow. If needed will do ascitic tap tomorrow before discharge Exam Vital Signs Temp Pulse Resp BP Pulse Ox O2 Del Method O2 Flow Rate 97.2 F 75 20 133/70 H 99 Nasal Cannula 2 02/22/25 12:00 02/22/25 08:49 02/22/25 12:00 02/22/25 12:00 02/22/25 12:00 02/22/25 07:56 02/22/25 07:56 Narrative Exam General: noted mild icterus. Awake. HEENT: Normocephalic, atraumatic, mucous membranes moist. Heart: Regular rate and rhythm, no murmurs. Lungs: Clear to auscultation with no wheezing or crackles. Abdomen: Soft, mild to moderately distended, nontender, positive bowel sounds. ?No guarding or rebound tenderness. noted umbilical hernia Neurologic: Alert and oriented x3, no gross neurological deficit, and patient able to move all 4 extremities. Extremities: Noted bilateral pitting 1+ edema and discoloration in the left lower extremity. Skin: discoloration in the left lower extremity. Objective Labs 02/23/25 04:32 02/23/25 04:32 Labs: Laboratory Results - last 24 hr 02/22/25 09:06 WBC 3.4 L RBC 2.81 L Hgb 9.4 L Hct 27.2 L MCV 97 MCH 33.5 MCHC 34.6 RDW Std Deviation 56.3 H Plt Count 83 L D Neut % (Auto) 58 Lymph % (Auto) 22 [place] % (Auto) 9 Eos % (Auto) 10 Baso % (Auto) 1 Neut # (Auto) 2.0 Lymph # (Auto) 0.8 L [place] # (Auto) 0.3 Eos # (Auto) 0.3 Baso # (Auto) 0.0 Immature Gran # (Auto) 0.02 H Absolute Nucleated RBC 0.00 Immature Gran % 1 H Nucleated RBC % 0 Sodium 141 Potassium 4.0 D Chloride 108 H Carbon Dioxide 27.2 Anion Gap 6 L BUN 15 Creatinine 1.2 Estim Creat Clear Calc 65.5 eGFR > 60 BUN/Creatinine Ratio 13 Glucose 253 H D Calculated Osmolality 291 Calcium 7.9 L Corrected Calcium 9.0 Total Bilirubin 2.3 H D AST 44 H ALT 25 Alkaline Phosphatase 94 Total Protein 5.2 L Albumin 2.6 L Globulin 2.6 Albumin/Globulin Ratio 1.0 L ABG Interpretation ABG results: 02/17/25 15:04 VBG pH 7.38 VBG pCO2 44 VBG pO2 40 VBG Base Excess 0 Quality Measures Quality Measures VTE prophylaxis Advance care planning discussed with:: patient Assessment & Plan Assessment Current Active Medications: Generic Name Dose Route Start Last Admin Trade Name Freq PRN Reason Stop Dose Admin Acetaminophen 650 mg 02/21/25 11:34 02/21/25 12:01 Acetaminophen 325 Mg Tablet PO 03/19/25 20:23 650 mg Q6H PRN Administration Fever >100.4 and pain 1-3 Carvedilol 3.125 mg 02/18/25 21:00 02/22/25 08:48 Carvedilol 3.125 Mg Tablet PO 03/20/25 20:59 3.125 mg BIDWM STEVE Administration Diphenhydramine HCl 25 mg 02/21/25 11:21 02/21/25 23:59 Diphenhydramine 25 Mg Capsule PO 03/23/25 20:59 25 mg HS PRN Administration insomnia Hydromorphone HCl 0.25 mg 02/19/25 07:32 02/21/25 22:19 Hydromorphone Inj 2 Mg/Ml Vial IVP 02/24/25 07:31 0.25 mg Q6HR PRN Administration Pain 4-6 Hydromorphone HCl 0.5 mg 02/19/25 07:32 02/20/25 20:41 Hydromorphone Inj 2 Mg/Ml Vial IVP 02/24/25 07:31 0.5 mg Q6HR PRN Administration Pain 7-10 Promethazine HCl 6.25 mg/ 50.25 mls @ 100.5 mls/hr 02/19/25 14:00 Sodium Chloride IV 03/21/25 13:59 Q4HR PRN NAUSEA Protocol Albumin Human 25 gm in 100 mls @ 100 mls/hr 02/20/25 07:23 02/22/25 08:48 Albuminar-25 Ivpb IV 02/23/25 07:22 100 mls/hr QDAY STEVE Administration Ceftriaxone Sodium/Dextrose 1 gm in 50 mls @ 100 mls/hr 02/22/25 09:41 02/22/25 10:36 Rocephin/D5w 1gm Iv Premix IV 03/01/25 09:40 100 mls/hr QDAY STEVE Administration Lactulose 20 gm 02/17/25 22:00 02/22/25 05:12 Lactulose Syrup 20 Gm/30 Ml Udc PO 03/19/25 21:59 20 gm TID STEVE Administration Protocol Melatonin 3 mg 02/21/25 21:00 02/21/25 21:21 Melatonin 3 Mg Tablet PO 03/23/25 20:59 3 mg HS STEVE Administration Ondansetron HCl 4 mg 02/17/25 20:07 02/18/25 05:29 Ondansetron Inj 2 Mg/Ml Inj 2 Ml IVP 03/19/25 20:06 4 mg Q6HR PRN Administration NAUSEA OR VOMITING Protocol Pantoprazole Sodium 40 mg 02/19/25 09:00 02/22/25 08:47 Pantoprazole Inj 40 Mg Vial IVP 03/21/25 08:59 40 mg QDAY STEVE Administration Rifaximin 550 mg 02/20/25 09:00 02/22/25 08:49 Rifaximin 550 Mg Tablet PO 02/27/25 08:59 550 mg BID STEVE Administration Spironolactone 100 mg 02/20/25 09:00 02/22/25 08:48 Spironolactone 25 Mg Tablet PO 03/22/25 08:59 100 mg DAILY STEVE Administration Plan Patient is a 69-year-old male with PMH of cirrhosis secondary to alcohol use, hepatitis C (diagnosed 1973), methamphetamine use, chronic smoker and abdominal hernia who presented on 02/17/25 for shortness of breath, admitted for decompensated liver cirrhosis with hematemesis secondary to grade II esophageal varices. #Hematemesis, resolved #Grade II esophageal varices #S/p banding (02/18/25) #Hematochezia Varices observed on previous CT A/P 09/2024, reconfirmed on CT A/P 02/18/25. Consulted GI Dr. Sinclair on admission. Found grade II esophageal varicies on EGD, banded. New onset hematochezia 02/19, likely secondary to severe upper GI bleed, residual after banding. Hgb stable at 9-10. S/p octreotide and CFX in ED on 02/17 Plan: - Octreotide 50 mcg/hr for 5 days (02/17-02/21) - IV CFX 1g (02/17-02/23) - Spiranolactone to 100 mg daily - Coreg 3.125 BID - CTM CBC- - Transfuse if Hgb <7 - Hold anticoagulation and chemical DVT prophylaxis - Consulted GI Dr. Sinclair as above, appreciate recommendations - Advance diet as tolerated #Acute on chronic decompensated liver cirrhosis / #Hx of alcohol use #Hepatitis C (diagnosed 1973), untreated #Ascites #S/p paracentesis (02/17/25) #Lactic acidosis, resolved #Hyperammonemia #Thrombocytopenia Has history of decompensated liver cirrhosis, secondary to untreated hepatitis C and/or chronic alcohol use. Drinking since 11 years old, last drink 1 month ago. Has history of hepatitis C, diagnosed in 1973, denies treatment. On exam, patient has prominent ascites, no encephalopathy, at baseline mentation. Elevated lactic acid 3.0 and ammonia 110, likely secondary to severe decompensation. Platelets 89,000 > 64,000. Utox negative for alcohol. Hep panel showed hep C Ab. CT C/A/P 02/18 shows cirrhosis with liver lobulated contour, no focal liver lesions, moderate ascites, prominent splenomegaly, esophageal varices. S/p paracentesis in ED, removed 9L, repleted with IV albumin. Scores: SAAG>1.1 - portal hypertension Child-Morrison Score 10, CLASS C- End-stage cirrhosis with very poor prognosis. MELD-Na 13, 6.0% estimated 3 month mortality Light's criteria - serum protein 0.6, pleural protein 2.0, serum LDH 239, pleural LDH 48; transudative Plan: - IV albumin - Lactulose 20 mg TID - Rifaximin 550 BID for persistent high ammonia levels - Follow up hep C titer - GI Dr. Sinclair consulted, recommendations appreciated - Strict ins and out - Zofran 4 mg prn - Outpatient follow-up for hepatitis vaccine series - Counseled on alcohol cessation #Dyspnea #Left base pneumonia #COPD? Dyspnea on admission, became tachypnic and tachycardic, saturated as low as 93%. Was started on 6 L nasal cannula. Saturating well on 2L s/p paracentesis. CXR showed left base pneumonia with left pleural fluid. Negative COVID-19, influenza A and B. Procal 0.23. No leukocytosis. Given alcohol use history and substance abuse, possible aspiration pneumonia. Likely history of COPD given extensive tobacco use in the past. Not on any medications nor uses oxygen at home. Blood cultures negative. Plan: - IV Ceftriaxone 1gm as above - Azithromycin (02/18-02/21) - Supplemental O2, titrate as tolerated to maintain SpO2 >92%, wean as tolerated #HFpEF (EF 55-60%) (02/17/25) #Grade I diastolic dysfunction Presented with dyspnea on admission. Also reports orthopnea and has pitting edema on exam. 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 No prior echo on record. Echo 02/17 showed EF 55-60% with grade I diastolic dysfunction, mild LVH. Severely dilated LA. Mild to moderate pulmonary HTN. Moderately dilated RA. Mitral annular calcification. Aortic valve sclerosis without stenosis. Mild TR and MR. Plan: - Continue Coreg and spironolactone as above - Consider starting on PIERRE/ARB when creatinine at baseline - Recommend outpatient follow up with systems technologist #Hx of HTN Patient has a history of hypertension for which he is noncompliant with his home regimen. - Spironolactone and Coreg as above - Low sodium diet #Methamphetamine use #Tobacco use Utox positive for methamphetamine. Smoked 1 ppd for 40 years since young age, quit. - Monitor for withdrawals symptoms - Counseled on cessation - Social service referral Health Maintenance Disposition: tele for decompensated liver cirrhosis DVT prophylaxis: SCDs GI prophylaxis: Protonix Diet: Peptic ulcer diet CODE STATUS: Full Patient plan of care was discussed with the attending physician, Dr. Vish Villaseñor, PGY2 Attending Provider Attestation/Addendum I have examined the patient, reviewed labs and imaging findings, discussed the case with the resident(s), and reviewed entered orders. I agree with the plan of care as outlined in this note, with these additional summaries/recommendations: Patient seen at bedside. No acute overnight events. Patient has completed octreotide drip for GI bleed secondary to esophageal varices. Status post EGD and banding. Continue IV Rocephin. Patient is pending placement to intermediate facility hopefully tomorrow 02/23. Patient also diagnosed with decompensated cirrhosis. Etiology for cirrhosis hepatitis C versus previous alcohol use. He reports he received treatment for hepatitis C in the 70s or 80s. Viral load pending. Patient was counseled to continue to avoid alcohol use. Continue fluid restriction and low-salt diet. Continue diuresis. Outpatient follow-up for vaccine series. Patient is status post paracentesis with approximately 9 L removed. Albumin repleted. Continue lactulose for elevated ammonia. No evidence of hepatic encephalopathy at this time. Patient and family updated with the plan and in agreement. All questions answered to satisfaction. Please see residents note for additional details and management. Dr. Vish MD
--- NOTE | 2025-02-22 15:43 | PD.IMPROG ---
Documentation for date of: 02/22/25 Subjective Subjective Interval history: Patient evaluated Hemoglobin hematocrit 9.4 and 27.2 Exam Vital Signs Temp Pulse Resp BP Pulse Ox O2 Del Method O2 Flow Rate 97.2 F 75 20 133/70 H 99 Nasal Cannula 2 02/22/25 12:00 02/22/25 08:49 02/22/25 12:00 02/22/25 12:00 02/22/25 12:00 02/22/25 07:56 02/22/25 07:56 Objective Labs 02/22/25 09:06 02/22/25 09:06 Labs: Laboratory Results - last 24 hr 02/22/25 09:06 WBC 3.4 L RBC 2.81 L Hgb 9.4 L Hct 27.2 L MCV 97 MCH 33.5 MCHC 34.6 RDW Std Deviation 56.3 H Plt Count 83 L D Neut % (Auto) 58 Lymph % (Auto) 22 [place] % (Auto) 9 Eos % (Auto) 10 Baso % (Auto) 1 Neut # (Auto) 2.0 Lymph # (Auto) 0.8 L [place] # (Auto) 0.3 Eos # (Auto) 0.3 Baso # (Auto) 0.0 Immature Gran # (Auto) 0.02 H Absolute Nucleated RBC 0.00 Immature Gran % 1 H Nucleated RBC % 0 Sodium 141 Potassium 4.0 D Chloride 108 H Carbon Dioxide 27.2 Anion Gap 6 L BUN 15 Creatinine 1.2 Estim Creat Clear Calc 65.5 eGFR > 60 BUN/Creatinine Ratio 13 Glucose 253 H D Calculated Osmolality 291 Calcium 7.9 L Corrected Calcium 9.0 Total Bilirubin 2.3 H D AST 44 H ALT 25 Alkaline Phosphatase 94 Total Protein 5.2 L Albumin 2.6 L Globulin 2.6 Albumin/Globulin Ratio 1.0 L Impressions Impression: GI bleeding secondary to esophageal varices status post band ligation and mucosal oozing of blood due to advanced portal hypertension Plan Continue current management ABG Interpretation ABG results: 02/17/25 15:04 VBG pH 7.38 VBG pCO2 44 VBG pO2 40 VBG Base Excess 0 Assessment & Plan A&P Narrative # Hematemesis in the setting of chronic liver disease secondary to alcohol plan intravenous octreotide 50 mcg IV push and 50 mcg/h infusion serial CBC IV Protonix N.p.o . consent obtained for fiberoptic esophagogastroduodenoscopy with possible therapeutic intervention under intravenous moderate sedation Thank you for the opportunity to participate in the care of this patient Time Spent With Patient Time: Total time spent is greater than 50% in coordination of care (as documented) at patient's floor/unit and/or counseling patient:
[2025-02-22] MEDS: ALBUTEROL/IPRATROPIUM (Duoneb) RT SOL 3 ML NEBU INH (18:24)
--- NOTE | 2025-02-22 19:39 | PC.RT ---
SOD CHLOR ORDER SC'S DUE TO PT WAS SOB AND NEEDED BRONCHODILATOR. ORDER CHANGED TO SVN DUONEB Q4PRN. SOD CLR DISCONTINUED.
[2025-02-22] MEDS: MELATONIN 3 MG TABLET PO (21:01)
--- NOTE | 2025-02-22 22:00 | PC.NURSE ---
Pt transferred from Telemetry to room 352 vie wheelchair. Pt is alert/oriented x3. No s/s of acute distress noted. Pt oriented to room and call light. Skin is dry and intact, discoloration noted to bilateral lower legs. Discussed plan of care with pt. Verbalized understanding.
[2025-02-23] VITALS (14 sets, daily range): BP systolic 134–148; BP diastolic 66–82; PULSE 59–90; RESP 15–20; TEMP 36.3–36.7; O2SAT 94–100; BMI 29.1
[2025-02-23] MEDS: ALBUTEROL/IPRATROPIUM (Duoneb) RT SOL 3 ML NEBU INH ×3 (02:03→14:22)
[2025-02-23] MEDS: HYDROmorphone INJ 2 MG/ML VIAL 0.25 MG IVP (05:04)
[2025-02-23] MEDS: LACTULOSE SYRUP 20 GM/30 ML UDC PO ×2 (05:05→14:57)
[2025-02-23 05:48] LABS: Basophils # (Auto) 0.0 Thou/mm3 (0.0-0.2); Basophils % (Auto) 1 % (0-2.5); Eosinophils # (Auto) 0.2 Thou/mm3 (0.0-0.5); Eosinophils % (Auto) 6 % (0-10); Hematocrit 28.1 % (41.0-53.0); Hemoglobin 9.9 g/dL (13.5-16.0); Immature Granulocytes Auto 0.02 Thou/mm3 (0.00-0.00); Lymphocytes # (Auto) 0.9 Thou/mm3 (1.0-4.8); Lymphocytes % (Auto) 24 % (10-50); Mean Corpuscular HGB Conc 35.2 g/dl (31.0-37.0); Mean Corpuscular Hemoglobin 33.9 pg (25.0-35.0); Mean Corpuscular Volume 96 fL (80-100); Monocytes # (Auto) 0.4 Thou/mm3 (0.0-0.8); Monocytes % (Auto) 10 % (0-12); Neutrophils # (Auto) 2.2 Thou/mm3 (1.8-7.7); Neutrophils % (Auto) 59 % (37-80); Nucleated Red Blood Cell # 0.00 Thou/mm3 (0.00-0.00); Nucleated Red Blood Cell % 0 /100 WBC (0); Platelet Count 82 Thou/mm3 (140-440); RDW Standard Deviation 54.7 fL (35.1-43.9); Red Blood Count 2.92 Miln/mm3 (4.50-5.90); White Blood Count 3.8 Thou/mm3 (3.8-10.6)
[2025-02-23 06:06] LABS: Alanine Aminotransferase 22 U/L (10-49); Albumin, Serum 2.7 gm/dL (3.4-4.8); Albumin/Globulin Ratio 1.0 (1.2-2.2); Alkaline Phosphatase 94 U/L (46-116); Anion Gap 6 (7-16); Aspartate Amino Transferase 40 U/L (0-34); BUN/Creatinine Ratio 13 Ratio (12-20); Bilirubin,Total 2.2 mg/dL (0.3-1.2); Blood Urea Nitrogen 14 mg/dL (9-23); Calcium 8.1 mg/dL (8.3-10.6); Calcium (Corrected) 9.1 mg/dL (8.5-10.1); Carbon Dioxide 28.5 mMol/L (20.0-31.0); Chloride 108 mMol/L (98-107); Creatinine (Component) 1.1 mg/dL (0.6-1.3); Estimated Creatinine Clearance 72.1 mL/min (>60); Globulin 2.6 gm/dL (2.3-3.5); Glucose 98 mg/dL (74-106); Osmolality,Calculated 283 (275-295); Potassium 4.2 mMol/L (3.4-5.1); Sodium 142 mMol/L (136-145); Total Protein 5.3 gm/dL (5.7-8.2); eGFR > 60 See Note
[2025-02-23] MEDS: cefTRIAXone/D5w 1gm IV premix 1 GM/50 ML BAG IV (08:18)
[2025-02-23] MEDS: SPIRONOLACTONE 25 MG TABLET 100 MG PO (08:18)
[2025-02-23 09:18] LABS: HCV RNA, PCR Log IU (Src Pt) 6.01 Log IU/mL
--- NOTE | 2025-02-23 10:23 | ESDS_ITS ---
<Statement entered by Benton Villaseñor MD - 02/23/25 16:04> Patient is admitted in the hospital for acute on chronic decompensated liver cirrhosis and upper GI bleed secondary to esophageal varices which were banded by seo executive Dr. Sinclair. Paracentesis was done and 9 L of fluid is drained. SAAG is suggestive of portal hypertension. Patient was treated with 5 days of octreotide infusion. During the hospital admission, patient is noted to be positive for hepatitis C and noted to have a high viral load for which patient was recommended to follow-up on outpatient basis with the primary care provider and seo executive to start hepatitis C treatment. Also recommended to get regular paracentesis in the ED if noted to have severe abdominal distention. Patient was started on spironolactone, carvedilol for heart failure and varices. Patient was discharged to SNF for further rehabilitation. I have personally seen and examined the patient, agree with residents assessment and plan Patient plan of care was discussed with the attending physician, Dr. Vish Villaseñor, PGY2 Planned Discharge Date 02/23/25 DS: Providers Provider Date of admission: 02/17/25 20:24 Primary care physician: Jb Salvador MD Admitting Provider: Crystal Franco MD Attending Provider on Admission: Scotty Wahl MD Consults: 02/17/25 20:08 Consult to Gastroenterology Routine Comment: Varaciel bleed Consulting Provider: Abdias Sinclair 02/18/25 11:16 Referral Physical Therapy Routine Comment: Physician Instructions: Attending Provider on DC: Scotty Wahl MD Discharging Provider: Paulette Brunner DO DS: Diagnosis Problem List Completed Was Problem List Reviewed/Reconciled?: Yes Hospital Course Hospital Course Hospital course: Summary: Patient is a 69-year-old male with PMH of cirrhosis secondary to alcohol use, hepatitis C (diagnosed 1973), methamphetamine use, chronic smoker and abdominal hernia who presented on 02/17/25 for shortness of breath, admitted for decompensated liver cirrhosis with hematemesis secondary to grade II esophageal varices, s/p paracentesis and banding on 02/17. Patient was started on IV octreotide and IV ceftriaxone for 5 day course, also started on Coreg 3.325 twice daily and spironolactone 100 mg daily. IV albumin given as 9 L of transudative fluid was removed. For hepatic encephalopathy, was started on lactulose and rifaximin. Patient had known history of untreated hepatitis C, titers were extremely elevated. Recommended that patient follow-up with PCP to receive outpatient treatment, likely culprit for worsening cirrhosis in addition to history of alcohol use. Also recommended close outpatient follow-up with the GI specialist or seed buyer. Otherwise, hemoglobin was stable throughout admission, no blood transfusions. Patient continued to be hypertensive, also started on nifedipine 30 mg daily. Patient was also treated with 3-day course azithromycin for left base pneumonia. Of note, patient required to be on supplemental oxygen, likely has COPD given tobacco use but undiagnosed, discharged with inhaler and recommend PCP follow up again. ED Course: -Vitals: BP 179/100, tachycardic pulse 101, RR 20, temp 98.7, O2 sat 95% on 6 L NC -Labs: platelet 81, PT 14.1, lactic acid 3.0 inprove, high T. bili 2.6, AST 52, high alkaline phosphatase 176, high ammonia of 110, BNP 109, albumin 2.6, Pro- Elia 0.23. UA negative for UTI. UTOX positive for amphetamine. -Imaging: CXR showed left base pneumonia with left pleural fluid, mild cardiac enlargement. -Therapeutic/diagnostic paracentesis; drained 9 L of nonbloody cloudy fluid -Became tachypneic and was started on CPAP with improvement. Suddenly vomited a bout 900 cc of bloody emesis. Consulted Dr. Sinclair for variceal banding. - In ED, started on SBP prophylaxis ceftriaxone, doxycycline, albumin, PPI, Zofran, dilaudid Discharge Recommendations: -Follow-up with PCP within 1 week of discharge. If you do not have appointment, please follow-up with the [facility] with Dr. Villaseñor. Call [phone] to make an appointment. -Recommended to follow up with Grocery Store Clerk within 2 weeks of discharge for treatment of hepatitis C -Recommended to get paracentesis as needed for worsening abdominal distension -Start to take Carvedilol 3.125mg twice daily, Nifedipine 30mg ER, Spironolactone 100 mg once daily, rifaximin 550 mg twice daily, lactulose 20 g thrice daily till he had 3 bowel movements -Take combivent inhaler as needed for wheeze/shortness of breath -Return to ED if symptoms persist or return Hospital Diagnoses: #Hematemesis #Grade II esophageal varices #S/p banding (02/18/25) #Hematochezia #Acute on chronic decompensated liver cirrhosis / #Hx of alcohol use #Hepatitis C (diagnosed 1973), untreated #Ascites #S/p paracentesis (02/17/25) #Lactic acidosis, resolved #Hyperammonemia #Thrombocytopenia #Dyspnea #Left base pneumonia #COPD? #HFpEF (EF 55-60%) (02/17/25) #Grade I diastolic dysfunction #Hx of HTN #Methamphetamine use #Tobacco use Disposition: Safe discharge to SNF. Patient plan of care was discussed with the resident, Dr. Villaseñor, and attending physician, Dr. Wahl. Paulette Brunner, PGY-1 Time Spent with Patient Time attestation: Total time spent providing and/or coordinating discharge services: Time spent: Greater than 30 minutes Exam Vital Signs Temp Pulse Resp BP Pulse Ox O2 Del Method O2 Flow Rate 97.4 F 64 20 148/82 H 100 Nasal Cannula 1 02/23/25 08:00 02/23/25 09:17 02/23/25 09:17 02/23/25 08:18 02/23/25 09:17 02/23/25 08:00 02/23/25 09:17 Narrative Exam Physical Exam General: Awake and in no acute distress. Answering questions appropriately. Conversational. HEENT: Normocephalic, atraumatic, mucous membranes moist. Jaundice. Heart: Regular rate and rhythm, normal S1 and S2, no murmurs. Lungs: Clear to auscultation with no wheezing or crackles. Abdomen: Soft, slightly distended, nontender, positive bowel sounds. Mild ascites. Umbilical hernia. No guarding or rebound tenderness. Neurologic: Alert and oriented x3, no gross neurological deficit, and patient able to move all 4 extremities. Extremities: +1 pitting edema bilaterally. Skin: Venostasis skin changes on left lower extremity. Discharge Plan Plan Patient Disposition: Xfer Skilled Nsg Fac (SNF) Patient condition on transfer: Stable Care Plan Goals: -Follow-up with PCP within 1 week of discharge. If you do not have appointment, please follow-up with the [facility] with Dr. Villaseñor. Call [phone] to make an appointment. -Recommended to follow up with Grocery Store Clerk within 2 weeks of discharge for treatment of hepatitis C -Recommended to get paracentesis as needed for worsening abdominal distension -Start to take Carvedilol 3.125mg twice daily, Nifedipine 30mg ER, Spironolactone 100 mg once daily, rifaximin 550 mg twice daily, lactulose 20 g thrice daily till he had 3 bowel movements -Take combivent inhaler as needed for wheeze/shortness of breath -Return to ED if symptoms persist or return Prescriptions/Referrals Prescriptions/Med Rec: New carvedilol 3.125 mg Tablet 3.125 mg PO BIDWM 30 Days Qty: 60 0RF lactulose 10 gram/15 mL Solution 20 g PO TID 30 Days Qty: 2700 0RF nifedipine 30 mg Tablet Extended Release 24hr 30 mg PO QDAY 30 Days Qty: 30 0RF Xifaxan 550 mg Tablet 550 mg PO BID 30 Days Qty: 60 0RF spironolactone 25 mg Tablet 100 mg PO DAILY 30 Days Qty: 120 0RF Combivent Respimat 20-100 mcg/actuation mist 1 puff inhalation Q6H PRN (Reason: shortness of breath or wheezing) Qty: 4 0RF Referrals: Jb Salvador MD [Primary Care Provider, Family Practice] Patient/Caregiver Discharge Instructions Education Materials: Hepatic Encephalopathy, Treating Cirrhosis, Understanding Cirrhosis Print Language: French Stand Alone Forms: [facility] Award Info., Patient Portal Info Letter Discharge Order Discharge Orders: Discharge (Routine); Ordered 02/23/25 Ordered By: Benton Villaseñor Quality Discharge Quality Measures VTE prophylaxis MD Attestestation MD Attestation I have examined the patient, reviewed labs and imaging findings, discussed the case with the resident(s), and reviewed entered orders. I agree with the plan of care as outlined in this note. Time Spent: [address] Vish MD
[2025-02-23] MEDS: HYDROmorphone INJ 2 MG/ML VIAL 0.5 MG IVP (12:29)
--- NOTE | 2025-02-23 13:12 | PC.SS ---
SS has setup gurney transportation with Bar from [facility] for 4pm to [employer] Ref# [id number]? SS has requested [facility].? Per [facility] sales representative graphic art, [facility] is not a guaranteed transport company.? Estimated time is 3-4 hours.? SS has sent patient?s facesheet and ambulance form to [facility] using [employer].? Pt is aware. DtrViji is at bedside and is aware. Corine, patient's sister is aware. Elizabeth from [facility] is aware.
--- NOTE | 2025-02-23 16:48 | PC.SS ---
SS received call from [facility] from [facility] due to high city levels transportation is pushed back to 6pm. Bedside nurse, April is aware.
== END 2025-02-23 18:54 | disposition skilled nursing facility (03) | DRG 432 ==
LOC: SERX 14:58 → SERHOLD 20:34 → S2NX 23:34 → S3NX 02-22 22:04
PROVIDERS: Specialist; Admitting Provider Student in an Organized Health Care Education/Training Program; PCP Family Medicine; Visit Provider Student in an Organized Health Care Education/Training Program
PROC: 06L38CZ Occlusion of Esophageal Vein with Extraluminal Device, Via Natural or Artificial Opening Endoscopic (ICD-10-PCS; CPT 43239; principal; 2025-02-18 09:15)
DX: K70.31 Alcoholic cirrhosis of liver with ascites (principal); I85.11 Secondary esophageal varices with bleeding; J18.9 Pneumonia, unspecified organism; J96.01 Acute respiratory failure with hypoxia; N17.9 Acute kidney failure, unspecified; I50.32 Chronic diastolic (congestive) heart failure; K76.6 Portal hypertension; E87.20 Acidosis, unspecified; F15.129 Other stimulant abuse with intoxication, unspecified; E86.0 Dehydration; F17.200 Nicotine dependence, unspecified, uncomplicated; K72.90 Hepatic failure, unspecified without coma; J44.9 Chronic obstructive pulmonary disease, unspecified; K42.9 Umbilical hernia without obstruction or gangrene; K76.82 Hepatic encephalopathy; I27.20 Pulmonary hypertension, unspecified; I87.8 Other specified disorders of veins; B19.20 Unspecified viral hepatitis C without hepatic coma; I11.0 Hypertensive heart disease with heart failure; I35.8 Other nonrheumatic aortic valve disorders; K31.89 Other diseases of stomach and duodenum; Z91.199 Patient's noncompliance with other medical treatment and regimen due to unspecified reason; Z79.899 Other long term (current) drug therapy
CPT/HCPCS: 36415; 36600; 71045; 71250; 74176; 80053; 80074; 80307; 80320; 81001; 82042; 82140; 82150; 82728; 82803; 82945; 83540; 83550; 83605; 83615; 83735; 83880; 84100; 84145; 84157; 85014; 85018; 85025; 85046; 85610; 85730; 86850; 86900; 86901; 86923; 87040; 87070; 87075; 87205; 87400; 87811; 89051; 93225; 93306; 93970; 94640; 94660; 94664; 96365; 96366; 96375; 97162; 99285; A4649; A9270; J0168; J0456; J0696; J1171; J1200; J1938; J2250; J2270; J2354; J2405; J2470; J2550; J3010; J3475; J3490; J7030; J7050; P9047; G0480

== ENCOUNTER → 2025-03-16 | Outpatient (CLI) | payer MEDICARE, MEDICAID, SELFPAY ==
--- NOTE | 2025-03-16 10:00 | XR_ITS ---
Examination: Ultrasound-guided paracentesis Abdominal sonogram limited Date and time of exam: 03/16/2025, 10:56 a.m. INDICATION: Ascites Informed consent provided. A timeout was completed verifying correct patient, procedure, site, positioning, and special adequate movement if applicable. Technique: Multiple sonographic images of the abdomen have been obtained. Appropriate area for paracentesis was marked. Local anesthesia is obtained with 1% lidocaine. Yueh catheter is successfully introduced. Findings: Abdominal sonographic images demonstrate sufficient ascitic fluid for paracentesis. After placing the Yueh catheter, 1150cc of fluid were successfully removed. During and after completion of the procedure the patient appear in satisfactory and stable condition with no complications observed. Estimated blood loss 0 cc Impression: Abdominal ascites Successful ultrasound-guided paracentesis as described above
== END | disposition home or self-care (01) ==
PROVIDERS: PCP Family Medicine; Referring Provider Hospitalist; Visit Provider Radiology Diagnostic Radiology
DX: K70.31 Alcoholic cirrhosis of liver with ascites (principal)
CPT/HCPCS: 49083; C1729

== ENCOUNTER 2025-03-31 09:13 | Emergency (ER) | payer MEDICARE, MEDICAID, SELFPAY ==
[2025-03-31 09:14] VITALS: BP 134/75; PULSE 78; RESP 19; TEMP 36.7; O2SAT 95
[2025-03-31 09:16] VITALS: BP 163/75; PULSE 68; PULSE 70; RESP 22; RESP 23; TEMP 36.5; O2SAT 94; O2SAT 96; BMI 27.8
--- NOTE | 2025-03-31 10:05 | XR_ITS ---
Examination: Ultrasound-guided paracentesis Abdominal sonogram limited Date and time of exam: March 31, 2025, 1138 hours INDICATIONS: Cirrhosis increasing ascites abdominal distention history Informed consent provided. A timeout was completed verifying correct patient, procedure, site, positioning, and special adequate movement if applicable. Technique: Multiple sonographic images of the abdomen have been obtained. Appropriate area for paracentesis was marked. Local anesthesia is obtained with 1% lidocaine. Yueh catheter is successfully introduced. Findings: Abdominal sonographic images demonstrate sufficient ascitic fluid for paracentesis. After placing the Yueh catheter, 450 cc of fluid were successfully removed. During and after completion of the procedure the patient appear in satisfactory and stable condition with no complications observed. Estimated blood loss 0 cc Impression: Abdominal ascites Successful ultrasound-guided paracentesis as described above
--- NOTE | 2025-03-31 10:06 | EKG_ITS ---
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
[2025-03-31 10:24] VITALS: BP 129/75; PULSE 64; RESP 21; TEMP 36.4; O2SAT 95
[2025-03-31 10:37] LABS: Basophils # (Auto) 0.0 Thou/mm3 (0.0-0.2); Basophils % (Auto) 1 % (0-2.5); Eosinophils # (Auto) 0.3 Thou/mm3 (0.0-0.5); Eosinophils % (Auto) 10 % (0-10); Hematocrit 34.2 % (41.0-53.0); Hemoglobin 11.9 g/dL (13.5-16.0); Immature Granulocytes Auto 0.01 Thou/mm3 (0.00-0.00); Lymphocytes # (Auto) 0.5 Thou/mm3 (1.0-4.8); Lymphocytes % (Auto) 20 % (10-50); Mean Corpuscular HGB Conc 34.8 g/dl (31.0-37.0); Mean Corpuscular Hemoglobin 32.2 pg (25.0-35.0); Mean Corpuscular Volume 93 fL (80-100); Monocytes # (Auto) 0.3 Thou/mm3 (0.0-0.8); Monocytes % (Auto) 12 % (0-12); Neutrophils # (Auto) 1.4 Thou/mm3 (1.8-7.7); Neutrophils % (Auto) 57 % (37-80); Nucleated Red Blood Cell # 0.00 Thou/mm3 (0.00-0.00); Nucleated Red Blood Cell % 0 /100 WBC (0); Platelet Count 99 Thou/mm3 (140-440); RDW Standard Deviation 45.1 fL (35.1-43.9); Red Blood Count 3.69 Miln/mm3 (4.50-5.90); White Blood Count 2.5 Thou/mm3 (3.8-10.6)
[2025-03-31 10:46] VITALS: PULSE 65; RESP 21; RESP 95
[2025-03-31] MEDS: SODIUM CHLORIDE 0.9% 1000 ML 1,000 ML 30 ML IV (10:46)
[2025-03-31 10:58] LABS: INR 1.2 (0.9-1.3); Partial Thromboplastin Time 30.0 Seconds (22.0-36.0); Prothrombin Time 13.0 Seconds (9.0-12.2)
[2025-03-31 11:02] LABS: Alanine Aminotransferase 41 U/L (10-49); Albumin, Serum 3.2 gm/dL (3.4-4.8); Albumin/Globulin Ratio 0.9 (1.2-2.2); Alkaline Phosphatase 162 U/L (46-116); Anion Gap 8 (7-16); Aspartate Amino Transferase 74 U/L (0-34); BUN/Creatinine Ratio 13 Ratio (12-20); Bilirubin,Total 1.2 mg/dL (0.3-1.2); Blood Urea Nitrogen 14 mg/dL (9-23); Calcium 8.1 mg/dL (8.3-10.6); Calcium (Corrected) 8.7 mg/dL (8.5-10.1); Carbon Dioxide 22.9 mMol/L (20.0-31.0); Chloride 109 mMol/L (98-107); Creatinine (Component) 1.1 mg/dL (0.6-1.3); Estimated Creatinine Clearance 72.0 mL/min (>60); Globulin 3.7 gm/dL (2.3-3.5); Glucose 122 mg/dL (74-106); Osmolality,Calculated 280 (275-295); Potassium 4.7 mMol/L (3.4-5.1); Sodium 140 mMol/L (136-145); Total Protein 6.9 gm/dL (5.7-8.2); eGFR > 60 See Note
--- NOTE | 2025-03-31 11:26 | PD.EDSOB ---
ED SOB =RME/HPI General Chief Complaint: Shortness of Breath/Dyspnea Stated Complaint: SOB Time Seen by Provider: 03/31/25 09:58 Arrival date/time: 03/31/25 09:13 Limitations: no limitations RME / HPI RME / HPI Narrative: 69 year old male with history of cirrhosis, ascites, hepatitis C, methamphetamine use presents to the ED for evaluation of feeling short of breath today. Described feeling he is not able to get a deep breath in that is worse with laying flat. Accompanied by abdominal distention. Reportedly was evaluated here 1 month ago for similar symptoms and had paracentesis performed with improvement. Patient reported feeling he may need to have a paracentesis performed. Denies fevers, chills, cough, chest pain, abdominal pain, n/v/d, or urinary symptoms. Related Data Previous Rx's ?Medication ?Instructions ?Recorded ipratropium 20 mcg-albuterol 100 1 puff inhalation Q6H PRN 02/23/25 mcg/actuation mist for inhalation shortness of breath or wheezing #4 (Combivent Respimat) grams Allergies Allergy/AdvReac Type Severity Reaction Status Date / Time No Known Allergies Allergy Verified 10/25/21 13:00 Review of Systems Review of Systems Systems Reviewed: All systems reviewed, normal except as documented Past Medical History Past Medical History CARDIAC: Positive Cardiac Disorders, Atrial Fibrillation and Hypertension RESPIRATORY: Positive Asthma GASTROINTESTINAL: Positive Gastrointestinal Disorders (Umbilical hernia, ASCITES), Hepatitis (HEP C) and Cirrhosis OTHER HISTORY: Positive Blood Transfusions Surgical History SURGICAL: Positive of Shoulder Sx (L SHOULDER) Social History SMOKING STATUS: Former smoker ED Exam General Limitations: Present no limitations General appearance: Present alert and in no apparent distress Head Head exam: Present atraumatic, normocephalic and normal inspection Eye Eye exam: Present normal appearance, PERRL and EOMI ENT ENT exam: Present normal exam, normal oropharynx and mucous membranes moist Neck Neck exam: Present normal inspection, full ROM and trachea midline Chest Chest inspection: Present normal inspection and symmetric chest wall rise Respiratory Respiratory exam: Present normal lung sounds bilaterally Cardiovascular Cardiovascular exam: Present regular rate, normal rhythm and normal heart sounds Abdominal Exam Abdominal exam: Present soft, distention (with positive fluid wave) and normal bowel sounds Extremities Exam Extremities exam: Present normal inspection and full ROM Back Exam Back exam: Present normal inspection and full ROM Neurological Exam Neurological exam: Present alert, oriented X3 and CN II-XII intact Psychiatric Psychiatric exam: Present normal affect and normal mood Skin Skin exam: Present warm, dry, intact and normal color Course Quality Measures none Orders Category Date Time Status 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 Care 03/31/25 10:06 Completed Continuous Pulse Oximetry NOW Care 03/31/25 10:06 Completed EKG (ED ONLY) *Do not use* NOW Care 03/31/25 10:06 Completed Insert IV NOW Care 03/31/25 10:06 Completed EKG (ED Only) Stat Exams 03/31/25 10:06 Draft US paracentesis abd w/image Stat Exams 03/31/25 10:05 Completed CBC Stat Lab 03/31/25 09:30 Completed Comprehensive Metabolic Panel Stat Lab 03/31/25 09:30 Completed Partial Thromboplastin Time Stat Lab 03/31/25 09:30 Completed Prothrombin Time with INR Stat Lab 03/31/25 09:30 Completed Sodium Chloride 0.9% 1000 ml [Ns] 1,000 ml Med 03/31/25 10:06 Discontinued IV 30 mls/hr Oxygen Delivery NOW RT 03/31/25 10:06 Completed Vital Signs Vital signs: Vital Signs Temperature 98.0 F 03/31/25 09:14 Pulse Rate 78 03/31/25 09:14 Respiratory Rate 19 03/31/25 09:14 Blood Pressure 134/75 H 03/31/25 09:14 Pulse Oximetry (%) 95 03/31/25 09:14 Oxygen Delivery Method Room Air 03/31/25 09:14 Pulse ox is 95% on room air which is adequate. Shortness of Breath / Dyspnea MDM Narrative MDM Narrative:: Jaquelin Harris am scribing for and in the presence of Dr. Drew. Patient remains clinically stable throughout the emergency department visit. Reported improvement after paracentesis. We reviewed all the results, analysis, and treatment plans. Patient is amenable to discharge. Strict return precautions were outlined. Patient data External records reviewed:: [facility] previous records Clinical information provided by:: patient Social determinants that could affect healthcare access:: none Patient has the following chronic illnesses:: cirrhosis, ascites, hepatitis C, methamphetamine use How is presenting disease/condition affected by chronic disease/condition?: exacerbated by Evaluation data The following diagnostics were reviewed and interpreted by me:: lab results, radiology exam(s) and EKG tracing(s) (EKG @ 10:36 AM. Normal sinus rhythm, rate 63, no STEMI. ) Lab and/or radiology exams considered but not ordered:: None Interpretation Summary: Ordering Physician: Sukhdev Drew MD Date of Service: 03/31/25 Procedure(s): US paracentesis abd w/image Accession Number(s): [id number] cc: Sukhdve Drew MD; Jb Salvador MD; Ketan Nieto MD~ Examination: Ultrasound-guided paracentesis Abdominal sonogram limited Date and time of exam: March 31, 2025, 1138 hours INDICATIONS: Cirrhosis increasing ascites abdominal distention history Informed consent provided. A timeout was completed verifying correct patient, procedure, site, positioning, and special adequate movement if applicable. Technique: Multiple sonographic images of the abdomen have been obtained. Appropriate area for paracentesis was marked. Local anesthesia is obtained with 1% lidocaine. Yueh catheter is successfully introduced. Findings: Abdominal sonographic images demonstrate sufficient ascitic fluid for paracentesis. After placing the Yueh catheter, 450 cc of fluid were successfully removed. During and after completion of the procedure the patient appear in satisfactory and stable condition with no complications observed. Estimated blood loss 0 cc Impression: Abdominal ascites Successful ultrasound-guided paracentesis as described above Dictated By: Ketan Nieto MD Signed By: <Electronically signed by Ketan Nieto MD in [place]> 03/31/25 1257 Medications / Prescriptions Medications or Prescriptions considered but not ordered:: None Medication administrations:: Medication Administration History Discontinued Medications Sodium Chloride (Ns) 1,000 mls @ 30 mls/hr IV .Q24H ONE Stop: 04/01/25 10:05 Last Infusion: 03/31/25 13:34 Dose: 0 mls/hr Documented By: Admin: 03/31/25 10:46 Dose: 30 mls/hr Documented By: GM See above Consultations Consultation(s) initiated? (list below): No Diagnosis Shortness of Breath Differential Diagnosis: acute exacerbation of chronic obstructive airways disease, congestive heart failure and community acquired pneumonia Most likely diagnosis given after review of the tests above:: Cirrhosis of liver Admission Indicated Admission indicated?: not indicated Admission Request Was there a request for admission?: No Disposition Plan Disposition Plan: Discharge Discharge Attestation Discharge Attestation: The patient and all family members were given an opportunity to ask questions and understood the discharge instructions. Discharge instructions specifically effects, indications for sooner follow up or return to the emergency department, and the expected course of current diagnosis. Patient condition: Stable Discharge Plan Plan Patient Disposition: HOME (Self Care) Patient condition on transfer: Stable Prescriptions/Referrals Prescriptions/Med Rec: No Action Combivent Respimat 20-100 mcg/actuation mist 1 puff inhalation Q6H PRN (Reason: shortness of breath or wheezing) Qty: 4 0RF Referrals: Jb Salvador MD [Primary Care Provider, Family Practice] - In 1 week Problem List Clinical Impression: Cirrhosis of liver Patient/Caregiver Discharge Instructions Discharge Activity: activity as tolerated Education Materials: Paracentesis Additional Instructions: You had paracentesis today. Please have your half-way facility speak to your doctor about scheduling paracentesis on a regular basis through the radiology department at [facility]. Print Language: Ivorian Stand Alone Forms: [employer] Award Info., Patient Portal Info Letter
--- NOTE | 2025-03-31 12:37 | PC.NURSE ---
PT BACK FROM PARACENTESIS; PER PT, I WANNA GO. THEY BARELY TOOK ANYTHING OUT. PT EDUCATED OF RISKS OF LEAVING AMA. PT'S FAMILY MEMBER AT BEDSIDE. RN ASKED IF PT OK TO WAIT UNTIL HE IS DISCHARGED BY DR. STAUFFER; PER PT, OK I'LL WAIT. I'M JUST FRUSTRATED THEY COULDN'T GET MUCH OUTTA ME DURING THE PROCEDURE.
[2025-03-31 12:41] VITALS: BP 127/84; PULSE 66; RESP 20; TEMP 36.7; O2SAT 95
== END 2025-03-31 13:36 | disposition home or self-care (01) ==
PROVIDERS: Emergency Provider Family Medicine; PCP Family Medicine
DX: R18.8 Other ascites (principal); B19.20 Unspecified viral hepatitis C without hepatic coma
CPT/HCPCS: 49083; 36415; 80053; 85025; 85610; 85730; 93005; 96360; 96361; 99284; C1729; J7030